=== PATIENT | female | born 1950 | race Caucasian/White ===

== ENCOUNTER 2017-10-28 17:27 | Inpatient (IN) ==
--- NOTE | 2017-10-28 18:06 | Emergency Department Note ---
Disposition Clinical Impression: Frequent falls Fracture of surgical neck of right humerus Qualifiers: Encounter type: initial encounter Fracture type: closed Fracture morphology: unspecified fracture morphology Fracture alignment: nondisplaced Qualified Code( s): S42.214A - Unspecified nondisplaced fracture of surgical neck of right humerus, initial encounter for closed fracture Left wrist fracture Qualifiers: Encounter type: initial encounter Fracture type: closed Qualified Code(s): S62.102A - Fracture of unspecified carpal bone, left wrist, initial encounter for closed fracture Disposition: Admitted As Inpatient Condition: Good Referrals: Gavin Mcdonald DO [Primary Care Provider] - Forms: ED Satisfaction Letter Time of Disposition: 19:59 Fall HPI - General Chief Complaint: ED Fall Stated Complaint: frequent falls Time Seen by Provider: 10/28/17 18:00 Source: patient, EMS Mode of arrival: EMS Limitations: physical limitation Nursing Notes Reviewed: Yes Vital Signs Reviewed: Yes - History of Present Illness HPI Narrative: 67-year-old white female who fell getting off the potty chair just prior to coming in. She was transported by squad. She has new pain in her right hip, right knee, right hand and forearm. She fell a week ago and fractured her right surgical neck of her humerus, and her left wrist. She has been followed up by orthopedics. She is not managing well at home with the fractures in both upper extremities. She is hallucinating with the pain medication according to the family. Onset (ago): Just ROVING OR [employer] Fall From: standing Fall Witnessed: yes Place Fall Occurred: home Loss of Consciousness: none Prolonged Down Time?: no Symptoms Prior to Fall: none Context: tripped/slipped Location of injury - extremities: Right: forearm, hand, hip, knee Severity: moderate (She states her hip does not hurt much anymore.) Quality: sharp Associated symptoms (after fall): Reports: denies - Related Data Home Medications Medication Instructions Recorded Confirmed Amitriptyline [Elavil] 20 mg PO HS 10/21/17 10/28/17 Amlodipine Besylate 10 mg PO DAILY 10/21/17 10/28/17 Aspirin [Lo-Dose Aspirin EC] 81 mg PO DAILY 10/21/17 10/28/17 Ergocalciferol (VITAMIN D2) 2,000 unit PO DAILY 10/21/17 10/28/17 [Vitamin D2] Furosemide [Lasix] 20 mg PO DAILY 10/21/17 10/28/17 Lisinopril [Zestril] 40 mg PO DAILY 10/21/17 10/28/17 Metformin HCl [Glucophage] 1,000 mg PO BID 10/21/17 10/28/17 Metoprolol XL (24 HR) Succ [Toprol 100 mg PO DAILY 10/21/17 10/28/17 XL] Pioglitazone HCl [Actos] 30 mg PO DAILY 10/21/17 10/28/17 Ranitidine HCl [Zantac] 150 mg PO BID 10/21/17 10/28/17 Sertraline [Zoloft] 100 mg PO DAILY 10/21/17 10/28/17 Tizanidine HCl [Zanaflex] 2 mg PO TID PRN 10/21/17 10/28/17 Tramadol HCl [Ultram] 50 mg PO Q8H 10/21/17 10/28/17 hydrOXYzine HCl [Hydroxyzine HCl] 25 mg PO TID PRN 10/21/17 10/28/17 Previous Rx's Medication Instructions Recorded HYDROcodone/Acet 5/325 mg [[place] 1 - 2 tab PO Q6H PRN #30 tab 10/21/17 5-325 mg] Allergies Allergy/AdvReac Type Severity Reaction Status Date / Time duloxetine [From Cymbalta] Allergy Agitated Verified 10/28/17 17:29 Paroxetine [From Paxil] Allergy Agitated Verified 10/28/17 17:29 acetaminophen [From Percocet] AdvReac Shakiness Verified 10/28/17 17:29 Oxycodone [From Percocet] AdvReac Shakiness Verified 10/28/17 17:29 All systems ED: reviewed and negative except as stated. Constitutional: Denies: fever, chills ENT ED: Denies: ear pain, throat pain Cardiovascular: Denies: chest pain Respiratory: Denies: cough, dyspnea Gastrointestinal: Denies: abdominal pain, nausea, vomiting Genitourinary: Denies: urgency, dysuria, frequency Musculoskeletal: Reports: other (Right shoulder fracture. Left wrist fracture. Right knee injury. Right forearm and hand injury. Right hip pain which is almost resolved at this point in time.). Denies: back pain, neck pain Integumentary: Reports: other (Bruising right upper arm) Neurological: Denies: weakness, numbness, paresthesias Fall PMH - Past Medical History Medical history: Reports: non-contributory, diabetes Surgical history: Reports: non-contributory Psychiatric history: Reports: anxiety, depression - Social History Smoking Status: Never smoker Alcohol use: Reports: none Drug use: Reports: none Physical Exam - General Limitations: no limitations General appearance: alert, in no apparent distress - Head Head exam: atraumatic, normocephalic - Eye Eye exam: Present: PERRL, EOMI. Absent: scleral icterus, conjunctival injection - ENT ENT exam: normal oropharynx, mucous membranes moist, TM's normal bilaterally - Neck Neck exam: Present: normal inspection, full ROM, trachea midline. Absent: tenderness, lymphadenopathy - Chest Chest inspection: Present: normal inspection, symmetric chest wall rise - Respiratory Respiratory exam: Present: normal lung sounds bilaterally. Absent: respiratory distress, wheezes - Cardiovascular Cardiovascular exam: Present: regular rate, normal rhythm, normal heart sounds - Abdominal Exam Abdominal exam: Present: soft, Non-Tender - Extremities Exam Extremities exam: Present: other (Moderate swelling and extensive brownish blue bruising of the right proximal and mid humerus. Limited range of motion of the right shoulder. She has some mild tenderness in her mid and distal right forearm. She has some mild tenderness in the area of her second and third metacarpals. She has range of motion of her right wrist and hand without deformity. She has some tenderness over her lateral right knee with intact range of motion. Her right hip is nontender without deformity. No significant pain with range of motion. She has some minimal brownish bruising to her left wrist with limited range of motion, no gross deformity. Intact distal pulses.) - Neurological Exam Neurological exam: Present: alert, oriented X3. Absent: motor sensory deficit - Psychiatric Psychiatric exam: Present: normal affect, normal mood - Skin Skin exam: Present: warm, dry, intact, normal color Course Vital Signs Temperature 99.0 F 10/28/17 17:33 Pulse Rate 118 10/28/17 17:33 Respiratory Rate 17 10/28/17 17:33 Blood Pressure 187/86 10/28/17 17:33 O2 Sat by Pulse Oximetry 96 10/28/17 17:33 Temperature 99.0 F 10/28/17 17:33 Pulse Rate 120 10/28/17 19:34 Respiratory Rate 18 10/28/17 19:34 Blood Pressure 171/81 10/28/17 19:34 O2 Sat by Pulse Oximetry 98 10/28/17 19:34 Oxygen Delivery Oxygen Delivery Room Air Fall - MDM Narrative Medical decision making narrative: The patient sustained or fractures about a week ago. She has bilateral upper extremity fractures. She is not managing well at home, and is falling and is at high risk for additional injury. She will need hospitalization and placement. The patient is requesting hospitalization and placement, she states she is unable to care for herself at home. I discussed the case with Dr. Keane. He is agreeable with admission for placement. I wrote for social service consult. - Lab Data Lab results reviewed: Yes I reviewed the patient's lab results. Result diagrams: 10/28/17 18:12 10/28/17 18:12 Lab Results 10/28/17 10/28/17 Range/Units 18:12 18:12 WBC 11.7 H (4.3-11.1) K/mcL RBC 3.72 L (3.82-4.97) M/mcL Hgb 10.5 L (11.5-15.4) g/dL Hct 31.0 L (35.3-44.9) % MCV 83.3 (83.0-100.0) fL MCH 28.2 (28.0-33.3) pg MCHC 33.9 (31.6-35.5) g/dL RDW 12.6 (11.5-14.5) % Plt Count 239 (140-400) K/mcL MPV 10.1 (9.4-12.4) fL Immature Gran % 0.4 (0-4) % Seg Neutrophils % 79.2 % Lymphocytes % 9.4 % Monocytes % 10.3 % Eosinophils % 0.5 % Basophils % 0.2 % Neutrophils # 9.3 H (1.6-8.9) K/mcL Lymphocytes # 1.1 (0.6-4.6) K/mcL Monocytes # 1.2 (0.0-1.3) K/mcL Eosinophils # 0.1 (0.0-0.6) K/mcL Basophils # 0.0 (0.0-0.2) K/mcL Sodium 138 (136-145) mEq/L Potassium 4.2 (3.5-4.5) mEq/L Chloride 101 (98-109) mEq/L Carbon Dioxide 25 (19-29) mEq/L BUN 25 H (7-20) mg/dL Creatinine 0.87 (0.57-1.11) mg/dL Est GFR ( Amer) > 60 (> 60) Est GFR (Non-Af Amer) > 60 (> 60) BUN/Creatinine Ratio 29 H (6-26) Glucose 212 H (70-99) mg/dL Calculated Osmolality 297 (280-300) Calcium 10.2 (8.6-10.8) mg/dL Total Bilirubin 1.0 (0.2-1.2) mg/dL AST 34 (5-34) Units/L ALT 28 (0-55) Units/L Alkaline Phosphatase 95 (38-126) Units/L Serum Total Protein 7.1 (6.0-8.3) g/dL Albumin 3.3 L (3.5-5.0) g/dL Globulin 3.8 H (2.4-3.5) g/dL Albumin/Globulin Ratio 0.9 L (1.1-2.2) - Radiology Data Radiology results reviewed: Yes I reviewed the patient's radiology results. Impressions Chest X-Ray 10/28/17 18:01 IMPRESSION: No evidence of acute cardiopulmonary disease. Fracture of the right humerus discussed on the shoulder radiographs performed today D/ / Waldo Menchaca MD / Waldo Menchaca MD Interpreting Provider: Waldo Menchaca MD Forearm X-Ray 10/28/17 18:01 IMPRESSION: Soft tissue swelling without fracture. D/ / Waldo Menchaca MD / Waldo Menchaca MD Interpreting Provider: Waldo Menchaca MD Hand X-Ray 10/28/17 18:01 IMPRESSION: No acute abnormality of the right hand D/ / Waldo Menchaca MD / Waldo Menchaca MD Interpreting Provider: Waldo Menchaca MD Hip X-Ray 10/28/17 18:01 IMPRESSION: No acute abnormality D/ / Waldo Menchaca MD / Waldo Menchaca MD Interpreting Provider: Waldo Menchaca MD Knee X-Ray 10/28/17 18:01 IMPRESSION: 1. No acute osseous abnormality. 2. Mild tricompartmental osteoarthritis. D/ / 10/28/2017 19:39:48 Jovany Crenshaw MD / [facility] Interpreting Provider: Jovany Crenshaw MD - EKG Data EKG attestation: Yes I reviewed and interpreted this EKG. EKG results narrative: Sinus tachycardia, rate of 114, age indeterminate). Infarct, nonspecific ST-T changes. Rhythm strip shows sinus tachycardia with rate 114, LA interval 169 ms , QRS 150 ms with no other ectopy is interpreted by me. No old EKG available for comparison.
[2017-10-28 18:17] LABS: Basophils % 0.2 %; Eosinophils # 0.1 K/mcL (0.0-0.6); Eosinophils % 0.5 %; Hemoglobin 10.5 g/dL (11.5-15.4); Immature Granulocytes % 0.4 % (0-4); Lymphocytes # 1.1 K/mcL (0.6-4.6); Lymphocytes % 9.4 %; Mean Corpuscular HGB Conc 33.9 g/dL (31.6-35.5); Mean Corpuscular Hemoglobin 28.2 pg (28.0-33.3); Mean Corpuscular Volume 83.3 fL (83.0-100.0); Mean Platelet Volume 10.1 fL (9.4-12.4); Monocytes # 1.2 K/mcL (0.0-1.3); Monocytes % 10.3 %; Neutrophils # 9.3 K/mcL (1.6-8.9); Platelet Count 239 K/mcL (140-400); Red Blood Count 3.72 M/mcL (3.82-4.97); Red Cell Distribution Width 12.6 % (11.5-14.5); Segmented Neutrophils % 79.2 %
[2017-10-28 18:34] LABS: Alanine Aminotransferase 28 Units/L (0-55); Albumin 3.3 g/dL (3.5-5.0); Albumin/Globulin Ratio 0.9 (1.1-2.2); Alkaline Phosphatase 95 Units/L (38-126); Aspartate Amino Transferase 34 Units/L (5-34); BUN/Creatinine Ratio 29 (6-26); Blood Urea Nitrogen 25 mg/dL (7-20); Calcium 10.2 mg/dL (8.6-10.8); Carbon Dioxide 25 mEq/L (19-29); Chloride 101 mEq/L (98-109); Globulin 3.8 g/dL (2.4-3.5); Glucose 212 mg/dL (70-99); Osmolality,Calculated 297 (280-300); Potassium 4.2 mEq/L (3.5-4.5); Sodium 138 mEq/L (136-145); Total Protein 7.1 g/dL (6.0-8.3); eGFR For African Americans > 60 (> 60); eGFR For Non-African Americans > 60 (> 60)
[2017-10-28] MEDS ORDERED: Naloxone 0.4 MG/ML INJ IVP PRN (21:25)
[2017-10-28] MEDS ORDERED: tiZANidine 4 MG TABLET PO PRN (21:25)
[2017-10-28] MEDS ORDERED: hydrALAZINE 25 MG TABLET PO PRN (21:25)
[2017-10-28] MEDS: *HR* Metformin 500 MG TABLET PO SCH (22:30)
[2017-10-28] MEDS: traMADol 50 MG TABLET PO SCH (22:37)
[2017-10-29] MEDS: traMADol 50 MG TABLET PO SCH ×3 (05:51→20:22)
[2017-10-29] MEDS ORDERED: Metoprolol XL (24 HR) Succ 50 MG TAB.ER.24H PO SCH (09:00)
[2017-10-29] MEDS: Cholecalciferol (D-3) 1,000 UNIT TABLET PO SCH (09:29)
[2017-10-29] MEDS: Furosemide 20 MG TABLET PO SCH (09:29)
[2017-10-29] MEDS: amLODIPine 5 MG TABLET PO SCH (09:29)
[2017-10-29] MEDS: *HR* Pioglitazone 15 MG TABLET PO SCH (09:30)
[2017-10-29] MEDS: Famotidine 20 MG TABLET PO SCH ×2 (09:30→16:13)
[2017-10-29] MEDS: Lisinopril 20 MG TABLET PO SCH (09:30)
[2017-10-29] MEDS: *HR* Metformin 500 MG TABLET PO SCH ×2 (09:30→16:13)
[2017-10-29] MEDS: Aspirin Enteric Coated 81 MG Tablet PO SCH (09:31)
[2017-10-29] MEDS: *HR* HYDROcodone/Acet 5/325 mg TABLET PO PRN (10:51)
--- NOTE | 2017-10-29 15:37 | Internal Med History&Physical ---
Date of Encounter: 10/29/17 Time of Encounter: 15:05 Assessment and Plan (1) Fracture of surgical neck of right humerus Current visit: Yes Status: Acute Anticipate surgical repair on 11/01/2017. Qualifiers: Encounter type: initial encounter Fracture type: closed Fracture morphology: unspecified fracture morphology Fracture alignment: nondisplaced Qualified Code(s): S42.214A - Unspecified nondisplaced fracture of surgical neck of right humerus, initial encounter for closed fracture (2) Left wrist fracture Current visit: Yes Status: Acute As per orthopedist. Qualifiers: Encounter type: initial encounter Fracture type: closed Qualified Code(s) : S62.102A - Fracture of unspecified carpal bone, left wrist, initial encounter for closed fracture (3) Anemia Current visit: Yes Status: Acute We will order anemia testing in a.m. Qualifiers: Anemia type: unspecified type Qualified Code(s): D64.9 - Anemia, unspecified (4) Azotemia Current visit: Yes Status: Acute Give IV fluids and recheck labs in a.m. (5) Hypertension Current visit: Yes Status: Chronic Will increase Toprol. Continue Zestril and amlodipine and monitor blood pressure. Qualifiers: Hypertension type: essential hypertension Qualified Code(s): I10 - Essential (primary) hypertension Internal Medicine - H&P: HPI Chief complaint: Fall Admitted From: Emergency Dept Plans for Post Hospital Care: Home History of present illness: Ms. Bahena is a 67 year old female who came to emergency room after she fell off the potty chair at home. She recalls the fall to the floor. Her heard the fall and called the squad. She was evaluated in emergency with x- rays showing no new fracture. She had previous right humerus surgical neck fracture and left wrist fracture from a fall approximately one week earlier. She was admitted to [facility] for ongoing care needs. She is scheduled for surgical repair of the humerus fracture on November 01 at [facility]. Her musk skeletal history significant for knee scope 1985. She has DJD and fibromyalgia but denies gout or other bone joint or muscle disorders. Past Med Surg Social Fam HX - Past Medical History Medical history: non-contributory, diabetes Psychiatric history: anxiety, depression - Past Surgical History Surgical History: non-contributory - Social History Smoking Status: Never smoker Smokeless Tobacco Status: No Alcohol use: none Drug use: none Internal Medicine - H&P: Meds Amitriptyline [Elavil] 20 mg PO HS 10/21/17 [History] Amlodipine Besylate 10 mg PO DAILY 10/21/17 [History] Aspirin [Lo-Dose Aspirin EC] 81 mg PO DAILY 10/21/17 [History] Ergocalciferol (VITAMIN D2) [Vitamin D2] 2,000 unit PO DAILY 10/21/17 [History] Furosemide [Lasix] 20 mg PO DAILY 10/21/17 [History] HYDROcodone/Acet 5/325 mg [[place] 5-325 mg] 1 - 2 tab PO Q6H PRN #30 tab [Rx] Lisinopril [Zestril] 40 mg PO DAILY 10/21/17 [History] Metformin HCl [Glucophage] 1,000 mg PO BID 10/21/17 [History] Metoprolol XL (24 HR) Succ [Toprol XL] 100 mg PO DAILY 10/21/17 [History] Pioglitazone HCl [Actos] 30 mg PO DAILY 10/21/17 [History] Ranitidine HCl [Zantac] 150 mg PO BID 10/21/17 [History] Sertraline [Zoloft] 100 mg PO DAILY 10/21/17 [History] Tizanidine HCl [Zanaflex] 2 mg PO TID PRN 10/21/17 [History] Tramadol HCl [Ultram] 50 mg PO Q8H 10/21/17 [History] hydrOXYzine HCl [Hydroxyzine HCl] 25 mg PO TID PRN 10/21/17 [History] 3 Allergy/AdvReac Type Severity Reaction Status Date / Time duloxetine [From Cymbalta] Allergy Agitated Verified 10/28/17 17:29 Paroxetine [From Paxil] Allergy Agitated Verified 10/28/17 17:29 acetaminophen [From Percocet] AdvReac Shakiness Verified 10/28/17 17:29 Oxycodone [From Percocet] AdvReac Shakiness Verified 10/28/17 17:29 All Systems PM: A 10-system review of systems was performed and is negative for pertinent findings except as documented above in the HPI. Review of systems: Gen.: She states her weight has decreased from approximately 285 pounds one year ago to present weight of approximately 225 pounds. This was unintentional. Cardiovascular: She has history of hypertension. She denies MS heart failure angina DVT or pulmonary embolus. She has had edema of her lower legs. Respiratory: She is lifelong nonsmoker and has no known chronic lung disease GI: She has GERD. She denies disorders of her liver gallbladder or exocrine pancreas : She has had UTIs in the past. She denies other kidney or bladder disorders. Neurologic: She is uncertain if she has had a stroke in the past. She states she feels "confused" for the last 2 weeks. She denies seizures Endocrine: She was diagnosed with DM 2 approximately 2004. She has hyperlipidemia but denies thyroid disease Hematology/oncology: She has anemia but denies blood disorders or cancers Psychiatric: She has anxiety and depression but denies other mental health issues [place] skeletal: As per history of present illness - Constitutional Vitals: Temp Pulse Resp BP Pulse Ox 98.4 F 96 18 143/72 95 10/29/17 15:00 10/29/17 15:00 10/29/17 15:00 10/29/17 15:00 10/29/17 15:00 Exam: Gen.: She is well-developed well-nourished female resting comfortably in bed who appears in no significant distress at present time HEENT: Head is atraumatic and normocephalic. Eyes: EOMI. There is no scleral icterus. Mouth: Mucosa is moist. Neck: Supple and nontender. There is no thyromegaly or adenopathy noted. Heart: Regular without murmurs gallops or ectopics Lungs: No wheezes or crackles heard. Abdomen: Soft and nontender. No masses or guarding are noted. Extremities: She has discoloration with ecchymosis dissecting along tissue planes in her right upper arm area. She has slight swelling of her left wrist compared to the right. There is ecchymosis around the left elbow area. There is no edema of her feet. Neurologic: Mental status: She is talkative and a good historian. Cranial nerves: Smile is symmetric. Forehead wrinkles bilaterally. Tongue protrudes midline. EOMI. Motor: There is no pronator drift. Cerebellar: Finger to nose is intact bilaterally. Skin: Warm and dry Internal Med - H&P Results - Labs CBC & Chem 7: 10/28/17 18:12 10/28/17 18:12
[2017-10-29] MEDS ORDERED: Metoprolol XL (24 HR) Succ 50 MG TAB.ER.24H PO ONE (16:00)
--- NOTE | 2017-10-29 16:40 | Electrocardiograph Report ---
[address] [place], [place] [address] Test Date: 2017-10-28 Pat Name: Huyen Bahena Department: 9201 Room: [facility] Gender: F Entry Examiner: [id number] : 1950 Requested By: Pernell Avina Order Number: [id number] Reading MD: Christoph Quiroz DO Measurements Intervals [place] Rate: 114 P: 67 TN: 169 QRS: 43 QRSD: 115 T: 41 QT: 387 QTc: 454 Interpretive Statements SINUS TACHYCARDIA POSSIBLE INFERIOR MYOCARDIAL INFARCTION, OF INDETERMINATE AGE Electronically Signed On 10-29-2017 16:39:18 EST by Christoph Quiroz DO
[2017-10-30] MEDS: traMADol 50 MG TABLET PO SCH ×3 (05:50→22:44)
[2017-10-30 06:04] LABS: Basophils % 0.3 %; Eosinophils # 0.2 K/mcL (0.0-0.6); Eosinophils % 2.2 %; Hematocrit 29.8 % (35.3-44.9); Hemoglobin 9.8 g/dL (11.5-15.4); Immature Granulocytes % 0.6 % (0-4); Lymphocytes # 1.8 K/mcL (0.6-4.6); Lymphocytes % 20.9 %; Mean Corpuscular HGB Conc 32.9 g/dL (31.6-35.5); Mean Corpuscular Hemoglobin 27.8 pg (28.0-33.3); Mean Corpuscular Volume 84.7 fL (83.0-100.0); Mean Platelet Volume 10.1 fL (9.4-12.4); Monocytes # 0.8 K/mcL (0.0-1.3); Monocytes % 8.7 %; Neutrophils # 5.8 K/mcL (1.6-8.9); Platelet Count 224 K/mcL (140-400); Red Blood Count 3.52 M/mcL (3.82-4.97); Red Cell Distribution Width 12.7 % (11.5-14.5); Segmented Neutrophils % 67.3 %
[2017-10-30 06:21] LABS: BUN/Creatinine Ratio 32 (6-26); Blood Urea Nitrogen 26 mg/dL (7-20); Calcium 9.2 mg/dL (8.6-10.8); Carbon Dioxide 25 mEq/L (19-29); Chloride 102 mEq/L (98-109); Glucose 161 mg/dL (70-99); Osmolality,Calculated 294 (280-300); Potassium 3.9 mEq/L (3.5-4.5); Sodium 138 mEq/L (136-145); eGFR For African Americans > 60 (> 60); eGFR For Non-African Americans > 60 (> 60)
[2017-10-30 06:45] LABS: Thyroid Stimulating Hormone 1.177 mcIU/mL (0.350-4.840)
[2017-10-30] MEDS: Lisinopril 20 MG TABLET PO SCH (08:33)
[2017-10-30] MEDS: *HR* Pioglitazone 15 MG TABLET PO SCH (08:33)
[2017-10-30] MEDS: Cholecalciferol (D-3) 1,000 UNIT TABLET PO SCH (08:33)
[2017-10-30] MEDS: Famotidine 20 MG TABLET PO SCH ×2 (08:33→17:43)
[2017-10-30] MEDS: Furosemide 20 MG TABLET PO SCH (08:34)
[2017-10-30] MEDS: Metoprolol XL (24 HR) Succ 50 MG TAB.ER.24H PO SCH (08:34)
[2017-10-30] MEDS: amLODIPine 5 MG TABLET PO SCH (08:34)
[2017-10-30] MEDS: *HR* Metformin 500 MG TABLET PO SCH ×2 (08:34→17:43)
[2017-10-30] MEDS: Aspirin Enteric Coated 81 MG Tablet PO SCH (08:34)
[2017-10-30 09:38] LABS: Hemoglobin A1C 6.1 %
--- NOTE | 2017-10-30 09:45 | Internal Med Progress Note ---
Date of Encounter: 10/30/17 Time of Encounter: 09:35 - Assessment and plan (1) Fracture of surgical neck of right humerus Current Visit: Yes Status: Acute Assessment and plan: October 30. Anticipate surgical repair 11/01/2017. Qualifiers: Encounter type: initial encounter Fracture type: closed Fracture morphology: unspecified fracture morphology Fracture alignment: nondisplaced Qualified Code(s): S42.214A - Unspecified nondisplaced fracture of surgical neck of right humerus, initial encounter for closed fracture (2) Left wrist fracture Current Visit: Yes Status: Acute Assessment and plan: October 30. As per orthopedist. Qualifiers: Encounter type: initial encounter Fracture type: closed Qualified Code(s) : S62.102A - Fracture of unspecified carpal bone, left wrist, initial encounter for closed fracture (3) Anemia Current Visit: Yes Status: Acute Assessment and plan: October 30. Anemia testing is pending. Qualifiers: Anemia type: unspecified type Qualified Code(s): D64.9 - Anemia, unspecified (4) Azotemia Current Visit: Yes Status: Acute Assessment and plan: October 30. Creatinine has decreased to 0.81. Barium peptide is normal. We will discontinue Lasix. We will decrease Norvasc to avoid edema. (5) Hypertension Current Visit: Yes Status: Chronic Assessment and plan: October 30. Continue higher dose Toprol. We will decrease amlodipine to lessen edema. Continue Zestril and monitor blood pressure. Qualifiers: Hypertension type: essential hypertension Qualified Code(s): I10 - Essential (primary) hypertension (6) Hypomagnesemia Current Visit: Yes Status: Acute Assessment and plan: October 30. Suspect secondary to diuretic use. Will order magnesium supplement. - Subjective Interval history: October 30. She has no new complaints. - Constitutional Vitals: Temp Pulse Resp BP Pulse Ox 98.5 F 92 18 152/72 95 10/30/17 05:06 10/30/17 05:06 10/30/17 05:06 10/30/17 05:06 10/30/17 05:06 Exam: She is resting comfortably in bed and appears in no acute distress. Her affect is bright and cheerful. Her extremities show decreased edema. I reviewed her medications and lab results. Internal Medicine: Result - Labs CBC & Chem 7: 10/30/17 05:04 10/30/17 05:04 Labs: Short CBC 10/30/17 Range/Units 05:04 WBC 8.6 (4.3-11.1) K/mcL Hgb 9.8 L (11.5-15.4) g/dL Hct 29.8 L (35.3-44.9) % Plt Count 224 (140-400) K/mcL Neutrophils # 5.8 (1.6-8.9) K/mcL BMP 10/30/17 05:04 Sodium 138 Potassium 3.9 Chloride 102 Carbon Dioxide 25 BUN 26 H Creatinine 0.81 Glucose 161 H Calcium 9.2 Consult Discharge Plan - Plan Referrals: Gavin Mcdonald DO [Primary Care Provider] - 1 week
[2017-10-30] MEDS ORDERED: amLODIPine 5 MG TABLET PO SCH (09:49)
[2017-10-30 10:07] LABS: Folate 8.3 ng/mL (3.0-16.0)
[2017-10-30] MEDS: *HR* Glimepiride 2 MG TABLET PO SCH (10:54)
[2017-10-30] MEDS: Magnesium Oxide 400 MG TABLET PO SCH ×2 (10:54→19:57)
[2017-10-30] MEDS: *HR* HYDROcodone/Acet 5/325 mg TABLET PO PRN ×2 (10:56→22:43)
[2017-10-30 11:53] LABS: % Iron Saturation 13 % (15-50); Ferritin 185 ng/ml (10-120); Iron 35 mcg/dL (50-170); Transferrin 189 mg/dL (203-362)
[2017-10-30 22:59] LABS: Bilirubin,Urine Negative (Negative); Blood,Urine Negative (Negative); Clarity,Urine Cloudy (Clear); Color,Urine Yellow (Yellow); Glucose,Urine (UA) Normal (Normal); Ketones,Urine Trace mg/dL (Negative); Leukocyte Esterase,Urine Moderate (Negative); Nitrite,Urine Negative (Negative); PH,Urine 5.5 pH Units (5.0-8.0); Protein,Urine Negative (Neg-Trace); Urobilinogen,Urine Normal (Normal)
[2017-10-30 23:14] LABS: Amorphous Sediment,Urine Few (Few); Bacteria,Urine Few per hpf (None-Few); Squamous Epithelial Cell,Urine Moderate per lpf (None-Few); WBC,Urine 15-30 per hpf (0-3)
[2017-10-31 05:37] LABS: Basophils % 0.5 %; Eosinophils # 0.3 K/mcL (0.0-0.6); Eosinophils % 3.7 %; Hematocrit 30.8 % (35.3-44.9); Hemoglobin 10.2 g/dL (11.5-15.4); Immature Granulocytes % 0.6 % (0-4); Lymphocytes # 2.5 K/mcL (0.6-4.6); Lymphocytes % 28.1 %; Mean Corpuscular HGB Conc 33.1 g/dL (31.6-35.5); Mean Corpuscular Hemoglobin 27.8 pg (28.0-33.3); Mean Corpuscular Volume 83.9 fL (83.0-100.0); Mean Platelet Volume 10.1 fL (9.4-12.4); Monocytes # 0.7 K/mcL (0.0-1.3); Monocytes % 7.7 %; Neutrophils # 5.3 K/mcL (1.6-8.9); Platelet Count 240 K/mcL (140-400); Red Blood Count 3.67 M/mcL (3.82-4.97); Red Cell Distribution Width 12.4 % (11.5-14.5); Segmented Neutrophils % 59.4 %
[2017-10-31 05:59] LABS: BUN/Creatinine Ratio 27 (6-26); Blood Urea Nitrogen 20 mg/dL (7-20); Calcium 9.3 mg/dL (8.6-10.8); Carbon Dioxide 25 mEq/L (19-29); Chloride 103 mEq/L (98-109); Glucose 106 mg/dL (70-99); Magnesium 1.3 mg/dL (1.6-2.6); Osmolality,Calculated 289 (280-300); Potassium 4.1 mEq/L (3.5-4.5); Sodium 138 mEq/L (136-145); eGFR For African Americans > 60 (> 60); eGFR For Non-African Americans > 60 (> 60)
[2017-10-31] MEDS: traMADol 50 MG TABLET PO SCH ×3 (06:26→21:39)
[2017-10-31] MEDS: Famotidine 20 MG TABLET PO SCH ×2 (08:19→16:31)
[2017-10-31] MEDS: Magnesium Oxide 400 MG TABLET PO SCH ×2 (08:20→20:13)
[2017-10-31] MEDS: *HR* Glimepiride 2 MG TABLET PO SCH (08:20)
[2017-10-31] MEDS: Aspirin Enteric Coated 81 MG Tablet PO SCH (08:20)
[2017-10-31] MEDS: *HR* Metformin 500 MG TABLET PO SCH ×2 (08:21→17:35)
[2017-10-31] MEDS: Metoprolol XL (24 HR) Succ 50 MG TAB.ER.24H PO SCH (08:21)
[2017-10-31] MEDS: Cholecalciferol (D-3) 1,000 UNIT TABLET PO SCH (08:22)
[2017-10-31] MEDS: Lisinopril 20 MG TABLET PO SCH (08:22)
--- NOTE | 2017-10-31 18:46 | Discharge Summary ---
Date of Encounter: 10/31/17 Time of Encounter: 18:15 - Discharge Diagnosis (1) Fracture of surgical neck of right humerus Priority: Primary Status: Acute Qualifiers: Encounter type: initial encounter Fracture type: closed Fracture morphology: unspecified fracture morphology Fracture alignment: nondisplaced Qualified Code(s): S42.214A - Unspecified nondisplaced fracture of surgical neck of right humerus, initial encounter for closed fracture (2) Left wrist fracture Priority: Secondary Status: Acute Qualifiers: Encounter type: initial encounter Fracture type: closed Qualified Code(s) : S62.102A - Fracture of unspecified carpal bone, left wrist, initial encounter for closed fracture (3) Anemia Priority: Secondary Status: Acute Qualifiers: Anemia type: unspecified type Qualified Code(s): D64.9 - Anemia, unspecified (4) Azotemia Priority: Secondary Status: Resolved (5) Hypertension Priority: Secondary Status: Chronic Qualifiers: Hypertension type: essential hypertension Qualified Code(s): I10 - Essential (primary) hypertension (6) Hypomagnesemia Priority: Secondary Status: Acute - Discharge Medications Prescriptions: Metoprolol Succinate 200 mg PO DAILY 30 Days tab.er.24h Home Medications: Amitriptyline [Elavil] 20 mg PO HS 10/21/17 [History] Aspirin [Lo-Dose Aspirin EC] 81 mg PO DAILY 10/21/17 [History] Ergocalciferol (VITAMIN D2) [Vitamin D2] 2,000 unit PO DAILY 10/21/17 [History] Furosemide [Lasix] 20 mg PO DAILY 10/21/17 [History] HYDROcodone/Acet 5/325 mg [[place] 5-325 mg] 1 - 2 tab PO Q6H PRN #30 tab [Rx] Lisinopril [Zestril] 40 mg PO DAILY 10/21/17 [History] Metformin HCl [Glucophage] 1,000 mg PO BID 10/21/17 [History] Ranitidine HCl [Zantac] 150 mg PO BID 10/21/17 [History] Sertraline [Zoloft] 100 mg PO DAILY 10/21/17 [History] Tizanidine HCl [Zanaflex] 2 mg PO TID PRN 10/21/17 [History] Tramadol HCl [Ultram] 50 mg PO Q8H 10/21/17 [History] hydrOXYzine HCl [Hydroxyzine HCl] 25 mg PO TID PRN 10/21/17 [History] Glimepiride [Amaryl] 1 mg PO 0800 tablet 10/31/17 [Rx] Magnesium Oxide [Mag-Ox] 400 mg PO BID tablet 10/31/17 [Rx] Metoprolol Succinate 200 mg PO DAILY 30 Days tab.er.24h 10/31/17 [Rx] amLODIPine [Norvasc] 5 mg PO DAILY tablet 10/31/17 [Rx] Allergies/Adverse Reactions: 3 Allergy/AdvReac Type Severity Reaction Status Date / Time duloxetine [From Cymbalta] Allergy Agitated Verified 10/28/17 17:29 Paroxetine [From Paxil] Allergy Agitated Verified 10/28/17 17:29 acetaminophen [From Percocet] AdvReac Shakiness Verified 10/28/17 17:29 Oxycodone [From Percocet] AdvReac Shakiness Verified 10/28/17 17:29 Date of admission: 10/28/17 20:08 Primary care physician: Gavin Mcdonald, DO - Patient Status Disposition: Transfer Other Condition: Good - Discharge Instructions - Diet and Activity Diet: diabetic diet Hospital course: Ms. Bahena is a 67 year old female who came to emergency room after she fell off the potty chair at home. She recalls the fall to the floor. Her heard the fall and called the squad. She was evaluated in emergency with x- rays showing no new fracture. She had previous right humerus surgical neck fracture and left wrist fracture from a fall approximately one week earlier. She was admitted to [facility] for ongoing care needs. Initial orders were written by the emergency room physician. I saw her on October 29 and performed the history and physical. She was given analgesics and IV fluids. Additional lab work showed anemia testing with iron 35, transferrin saturation 13%, transferrin 189, ferritin 185, B12 554, and folate 8.3. She will be started on ferrous sulfate with vitamin C upon her return to [facility] in swing bed following surgery. Hemoglobin A1c returned satisfactory at 6.1%. Actos was discontinued to avoid worsening edema. She was continued on metformin and given glimepiride 1 mg daily. Amlodipine dose was decreased to 5 mg daily and metoprolol XL increased to 200 mg daily which lessened edema and improved blood pressure and heart rate control. Magnesium level returned low at 1.3. She was started on magnesium oxide and this will be continued after discharge. She will be transported to [facility] the morning of November 01 for surgical repair of the right proximal humerus fracture and left wrist fracture. Upon discharge she will return to [facility] for swing bed stay. - Time Spent with Patient Total time spent providing and/or coordinating discharge services: - Constitutional Vitals: Temp Pulse Resp BP Pulse Ox 98.8 F 84 16 144/73 96 10/31/17 16:15 10/31/17 16:15 10/31/17 16:15 10/31/17 16:15 10/31/17 16:15
[2017-10-31] MEDS: *HR* HYDROcodone/Acet 5/325 mg TABLET PO PRN (20:13)
[2017-11-01] MEDS: traMADol 50 MG TABLET PO SCH (05:39)
[2017-11-01 07:20] VITALS: BP 157/70
== END 2017-11-01 07:45 | disposition short-term general hospital (02) | DRG 563 ==
LOC: EMEROOPIK 17:27 → INPPIK 17:27
PROVIDERS: ADMIT Internal Medicine; ATTEND Internal Medicine

== ENCOUNTER 2017-11-01 14:41 | Inpatient (IN) ==
[2017-11-01] MEDS ORDERED: tiZANidine 4 MG TABLET PO PRN (16:27)
[2017-11-01] MEDS ORDERED: *HR* HYDROcodone/Acet 5/325 mg TABLET PO PRN (17:04)
[2017-11-01] MEDS ORDERED: Famotidine 20 MG TABLET PO SCH (21:00)
[2017-11-01] MEDS: Famotidine 20 MG TABLET PO SCH (22:44)
[2017-11-01] MEDS: Magnesium Oxide 400 MG TABLET PO SCH (22:44)
[2017-11-01] MEDS: *HR* Metformin 500 MG TABLET PO SCH (22:46)
[2017-11-02] MEDS ORDERED: *HR* Pioglitazone 15 MG TABLET PO SCH (08:00)
[2017-11-02] MEDS ORDERED: Aspirin Enteric Coated 81 MG Tablet PO SCH (09:00)
[2017-11-02] MEDS: amLODIPine 5 MG TABLET PO SCH (09:05)
[2017-11-02] MEDS: *HR* Metformin 500 MG TABLET PO SCH ×2 (09:05→18:09)
[2017-11-02] MEDS: Lisinopril 20 MG TABLET PO SCH (09:06)
[2017-11-02] MEDS: Magnesium Oxide 400 MG TABLET PO SCH ×2 (09:06→20:19)
[2017-11-02] MEDS: Famotidine 20 MG TABLET PO SCH ×2 (09:06→20:19)
[2017-11-02] MEDS: Furosemide 20 MG TABLET PO SCH (09:07)
[2017-11-02] MEDS: *HR* Glimepiride 2 MG TABLET PO SCH (09:07)
[2017-11-02] MEDS: Metoprolol XL (24 HR) Succ 50 MG TAB.ER.24H PO SCH (10:59)
[2017-11-02] MEDS: *HR* HYDROcodone/Acet 5/325 mg TABLET PO PRN ×2 (14:38→20:19)
--- NOTE | 2017-11-02 17:21 | Internal Med History&Physical ---
Date of Encounter: 11/02/17 Time of Encounter: 16:50 Assessment and Plan (1) Left wrist fracture Current visit: No Status: Acute As per orthopedists Qualifiers: Encounter type: initial encounter Fracture type: closed Qualified Code(s) : S62.102A - Fracture of unspecified carpal bone, left wrist, initial encounter for closed fracture (2) Fracture of surgical neck of right humerus Current visit: No Status: Acute As per orthopedist Qualifiers: Encounter type: initial encounter Fracture type: closed Fracture morphology: unspecified fracture morphology Fracture alignment: nondisplaced Qualified Code(s): S42.214A - Unspecified nondisplaced fracture of surgical neck of right humerus, initial encounter for closed fracture (3) Anemia Current visit: No Status: Acute Will start ferrous sulfate with vitamin C based on anemia testing 10/30/2017. Qualifiers: Anemia type: unspecified type Qualified Code(s): D64.9 - Anemia, unspecified (4) Hypertension Current visit: No Status: Chronic Continue Toprol, lisinopril, and Norvasc. Qualifiers: Hypertension type: essential hypertension Qualified Code(s): I10 - Essential (primary) hypertension (5) Hypomagnesemia Current visit: No Status: Acute Will give magnesium oxide and monitor labs. Internal Medicine - H&P: HPI Chief complaint: Postop wrist fracture repair Admitted From: Hospital to Hospital Transfer Plans for Post Hospital Care: Home History of present illness: Ms. Bahena is a 67 year old female who was discharged from [facility] acute-care to same day surgery at [facility] for left wrist fracture repair 11/01/2017. She had distal radius intra-articular fracture with 3 distal fragments repaired by ORIF plate and screw repair by Dr. Sepulveda. She returned to [facility] for swing bed admission for ongoing care needs. She did not have intervention for a right humerus surgical neck fracture since a right reverse total shoulder replacement surgery is planned for 11/06/2017. She had sustained the fractures from a fall at home approximately one week prior to her last admission. Her musk skeletal history is significant for a knee scope in 1985. She has DJD and fibromyalgia but denies gout or other bone joint or muscle disorders. Past Med Surg Social Fam HX - Past Medical History Medical history: non-contributory, diabetes Psychiatric history: anxiety, depression - Past Surgical History Surgical History: non-contributory - Social History Smoking Status: Never smoker Smokeless Tobacco Status: No Alcohol use: none Drug use: none Internal Medicine - H&P: Meds Amitriptyline [Elavil] 20 mg PO HS 10/21/17 [History] Aspirin [Lo-Dose Aspirin EC] 81 mg PO DAILY 10/21/17 [History] Ergocalciferol (VITAMIN D2) [Vitamin D2] 2,000 unit PO DAILY 10/21/17 [History] Furosemide [Lasix] 20 mg PO DAILY 10/21/17 [History] HYDROcodone/Acet 5/325 mg [[place] 5-325 mg] 1 - 2 tab PO Q6H PRN #30 tab [Rx] Lisinopril [Zestril] 40 mg PO DAILY 10/21/17 [History] Metformin HCl [Glucophage] 1,000 mg PO BID 10/21/17 [History] Ranitidine HCl [Zantac] 150 mg PO BID 10/21/17 [History] Sertraline [Zoloft] 100 mg PO DAILY 10/21/17 [History] Tizanidine HCl [Zanaflex] 2 mg PO TID PRN 10/21/17 [History] Tramadol HCl [Ultram] 50 mg PO Q8H 10/21/17 [History] Glimepiride [Amaryl] 1 mg PO 0800 tablet 10/31/17 [Rx] Magnesium Oxide [Mag-Ox] 400 mg PO BID tablet 10/31/17 [Rx] Metoprolol Succinate 200 mg PO DAILY 30 Days tab.er.24h 10/31/17 [Rx] Amlodipine Besylate [Amlodipine Besylate] 10 mg PO DAILY 11/01/17 [History] Atorvastatin [Lipitor] 10 mg PO HS 11/01/17 [History] HYDROcodone/Acet 7.5/325 mg [[place] 7.5-325 mg] 1 tab PO Q4H PRN #42 tablet 11/01 [Rx] 3 Allergy/AdvReac Type Severity Reaction Status Date / Time duloxetine [From Cymbalta] Allergy Agitated Verified 10/28/17 17:29 Paroxetine [From Paxil] Allergy Agitated Verified 10/28/17 17:29 acetaminophen [From Percocet] AdvReac Shakiness Verified 10/28/17 17:29 Oxycodone [From Percocet] AdvReac E[place]se Verified 10/28/17 17:29 All Systems PM: A 10-system review of systems was performed and is negative for pertinent findings except as documented above in the HPI. Review of systems: Review of systems from her recent acute-care H stay were reviewed and revised as below. Gen.: She states her weight has decreased from approximately 285 pounds one year ago to present weight of approximately 225 pounds. This was unintentional. Cardiovascular: She has history of hypertension. She denies MS heart failure angina DVT or pulmonary embolus. She has had edema of her lower legs. Respiratory: She is lifelong nonsmoker and has no known chronic lung disease GI: She has GERD. She denies disorders of her liver gallbladder or exocrine pancreas : She has had UTIs in the past. She denies other kidney or bladder disorders. Neurologic: She is uncertain if she has had a stroke in the past. She denies seizures Endocrine: She was diagnosed with DM 2 approximately 2004. Hemoglobin A1c returned satisfactory 6.1% earlier this week. Actos was discontinued to avoid worsening edema. She was continued on metformin and given glimepiride 1 mg daily. She has hyperlipidemia but denies thyroid disease Hematology/oncology: She has anemia but denies blood disorders or cancers. Anemia testing during her acute care stay earlier this week showed iron 35, transferrin saturation 13%, transferrin 189, ferritin 185, B12 554, and folate 8.3. Psychiatric: She has anxiety and depression but denies other mental health issues Musk skeletal: As per history of present illness - Constitutional Vitals: Temp Pulse Resp BP Pulse Ox 98.6 F 83 16 172/60 95 11/02/17 07:31 11/02/17 07:31 11/02/17 07:31 11/02/17 07:31 11/02/17 07:31 Exam: Gen.: She is a well-developed well-nourished female resting in bed who appears in no acute distress HEENT: Head is atraumaticic and normocephalic. Eyes: EOMI. There is no scleral icterus. Mouth: Mucosa is moist. Neck: There is no thyromegaly or adenopathy noted. Heart: Regular without murmurs gallops or ectopics. Lungs: No wheezes or crackles are heard. Abdomen: Soft and nontender. No masses or guarding are noted. Extremities: There is no edema of her lower legs. Dorsalis pedis and posterior tibial pulses are trace to 1+ palpable bilaterally. The left arm is in immobilizer sling with elastic wrap extending from her mid upper arm distally. Her hand is wrapped in gauze leaving only the fingers exposed. Her right arm is in a rigid immobilizer. Neurologic: Mental status: She is talkative and a good historian. Cranial nerves: Smile is symmetric. Forehead wrinkles bilaterally. Tongue protrudes midline. EOMI. Motor: There is no pronator drift. Cerebellar: Finger to nose is not attempted. Skin: Warm and dry
[2017-11-02] MEDS: Aspirin Enteric Coated 81 MG Tablet PO SCH (18:09)
[2017-11-02] MEDS: traMADol 50 MG TABLET PO SCH (18:12)
[2017-11-03] MEDS: traMADol 50 MG TABLET PO SCH ×3 (00:13→22:33)
[2017-11-03] MEDS: *HR* Metformin 500 MG TABLET PO SCH ×2 (10:32→16:55)
[2017-11-03] MEDS: Lisinopril 20 MG TABLET PO SCH (10:33)
[2017-11-03] MEDS: amLODIPine 5 MG TABLET PO SCH (10:33)
[2017-11-03] MEDS: Furosemide 20 MG TABLET PO SCH (10:33)
[2017-11-03] MEDS: Metoprolol XL (24 HR) Succ 50 MG TAB.ER.24H PO SCH (10:33)
[2017-11-03] MEDS: Famotidine 20 MG TABLET PO SCH ×2 (10:34→22:33)
[2017-11-03] MEDS: Magnesium Oxide 400 MG TABLET PO SCH ×2 (10:34→22:33)
[2017-11-03] MEDS: *HR* Glimepiride 2 MG TABLET PO SCH (10:34)
--- NOTE | 2017-11-03 12:19 | Internal Med Progress Note ---
Date of Encounter: 11/03/17 Time of Encounter: 12:10 - Assessment and plan (1) Left wrist fracture Current Visit: No Status: Acute Assessment and plan: November 03. Status post ORIF 11/01/2017. As per orthopedist Qualifiers: Encounter type: initial encounter Fracture type: closed Qualified Code(s) : S62.102A - Fracture of unspecified carpal bone, left wrist, initial encounter for closed fracture (2) Fracture of surgical neck of right humerus Current Visit: No Status: Acute Assessment and plan: November 03. Awaiting surgical repair 11/07/2017. Qualifiers: Encounter type: initial encounter Fracture type: closed Fracture morphology: unspecified fracture morphology Fracture alignment: nondisplaced Qualified Code(s): S42.214A - Unspecified nondisplaced fracture of surgical neck of right humerus, initial encounter for closed fracture (3) Anemia Current Visit: No Status: Acute Assessment and plan: November 07. Continue ferrous sulfate and vitamin C. Check labs in a.m. Qualifiers: Anemia type: unspecified type Qualified Code(s): D64.9 - Anemia, unspecified (4) Hypertension Current Visit: No Status: Chronic Assessment and plan: November 03. Continue Toprol, lisinopril, and Norvasc Qualifiers: Hypertension type: essential hypertension Qualified Code(s): I10 - Essential (primary) hypertension (5) Hypomagnesemia Current Visit: No Status: Acute Assessment and plan: November 03. Continue magnesium oxide. Check labs in a.m. - Subjective Interval history: November 03. She has no new complaints. She has pain in her right arm. - Constitutional Vitals: Temp Pulse Resp BP Pulse Ox 97.8 F 85 16 191/71 96 11/03/17 07:32 11/03/17 07:32 11/03/17 07:32 11/03/17 07:32 11/03/17 07:32 Exam: She is resting comfortably in the bed. Her is feeding her lunch. Extremities show no pitting edema. I reviewed her medications and lab results. Consult Discharge Plan - Plan Referrals: Gavin Mcdonald DO [Primary Care Provider] - 1 week
[2017-11-03] MEDS: *HR* HYDROcodone/Acet 5/325 mg TABLET PO PRN ×2 (12:54→16:55)
[2017-11-03 16:25] LABS: Basophils % 0.3 %; Eosinophils # 0.1 K/mcL (0.0-0.6); Hematocrit 31.3 % (35.3-44.9); Hemoglobin 10.6 g/dL (11.5-15.4); Immature Granulocytes % 0.9 % (0-4); Lymphocytes # 2.9 K/mcL (0.6-4.6); Lymphocytes % 21.7 %; Mean Corpuscular HGB Conc 33.9 g/dL (31.6-35.5); Mean Corpuscular Volume 82.6 fL (83.0-100.0); Mean Platelet Volume 10.2 fL (9.4-12.4); Monocytes # 0.9 K/mcL (0.0-1.3); Monocytes % 6.4 %; Platelet Count 304 K/mcL (140-400); Red Blood Count 3.79 M/mcL (3.82-4.97); Red Cell Distribution Width 12.8 % (11.5-14.5); Segmented Neutrophils % 69.7 %
[2017-11-03 16:34] LABS: Neutrophils # 9.3 K/mcL (1.6-8.9)
[2017-11-03 16:42] LABS: BUN/Creatinine Ratio 29 (6-26); Blood Urea Nitrogen 28 mg/dL (7-20); Calcium 9.5 mg/dL (8.6-10.8); Carbon Dioxide 22 mEq/L (19-29); Chloride 105 mEq/L (98-109); Glucose 112 mg/dL (70-99); Magnesium 1.5 mg/dL (1.6-2.6); Osmolality,Calculated 294 (280-300); Potassium 4.8 mEq/L (3.5-4.5); Sodium 139 mEq/L (136-145); eGFR For African Americans > 60 (> 60); eGFR For Non-African Americans 58 (> 60)
[2017-11-03 17:50] LABS: Platelet Estimate Normal (Normal)
[2017-11-04] MEDS: Ascorbic Acid 500 MG TABLET PO SCH (06:38)
[2017-11-04] MEDS: *HR* HYDROcodone/Acet 5/325 mg TABLET PO PRN ×4 (06:39→21:35)
[2017-11-04] MEDS: Metoprolol XL (24 HR) Succ 50 MG TAB.ER.24H PO SCH (08:13)
[2017-11-04] MEDS: Lisinopril 20 MG TABLET PO SCH (08:13)
[2017-11-04] MEDS: Famotidine 20 MG TABLET PO SCH ×2 (08:13→21:34)
[2017-11-04] MEDS: *HR* Metformin 500 MG TABLET PO SCH ×2 (08:13→17:07)
[2017-11-04] MEDS: Magnesium Oxide 400 MG TABLET PO SCH ×2 (08:14→21:34)
[2017-11-04] MEDS: *HR* Glimepiride 2 MG TABLET PO SCH (08:14)
[2017-11-04] MEDS: Furosemide 20 MG TABLET PO SCH (08:14)
[2017-11-04] MEDS: traMADol 50 MG TABLET PO SCH ×2 (08:14→17:06)
[2017-11-04] MEDS: amLODIPine 5 MG TABLET PO SCH (08:14)
[2017-11-04] MEDS ORDERED: Cholecalciferol (D-3) 1,000 UNIT TABLET PO SCH ×2 (09:00→10:45)
[2017-11-04] MEDS ORDERED: Mag Hydrox/Al Hydrox/Simeth 30 ML UDC PO ONE (10:12)
[2017-11-04] MEDS: Cholecalciferol (D-3) 1,000 UNIT TABLET PO SCH (17:06)
[2017-11-04] MEDS: Aspirin Enteric Coated 81 MG Tablet PO SCH (17:07)
[2017-11-05] MEDS: traMADol 50 MG TABLET PO SCH ×5 (00:30→23:41)
[2017-11-05] MEDS: *HR* HYDROcodone/Acet 5/325 mg TABLET PO PRN ×3 (07:00→22:22)
[2017-11-05] MEDS: Ascorbic Acid 500 MG TABLET PO SCH ×2 (07:00→09:22)
[2017-11-05] MEDS: Cholecalciferol (D-3) 1,000 UNIT TABLET PO SCH (09:18)
[2017-11-05] MEDS: *HR* Glimepiride 2 MG TABLET PO SCH (09:18)
[2017-11-05] MEDS: Lisinopril 20 MG TABLET PO SCH (09:20)
[2017-11-05] MEDS: Famotidine 20 MG TABLET PO SCH ×2 (09:20→21:21)
[2017-11-05] MEDS: Furosemide 20 MG TABLET PO SCH (09:20)
[2017-11-05] MEDS: *HR* Metformin 500 MG TABLET PO SCH ×2 (09:20→17:00)
[2017-11-05] MEDS: Magnesium Oxide 400 MG TABLET PO SCH ×2 (09:21→21:20)
[2017-11-05] MEDS: Metoprolol XL (24 HR) Succ 50 MG TAB.ER.24H PO SCH (09:21)
[2017-11-05] MEDS: amLODIPine 5 MG TABLET PO SCH (09:27)
--- NOTE | 2017-11-05 15:48 | Internal Med Progress Note ---
Date of Encounter: 11/05/17 Time of Encounter: 15:40 - Assessment and plan (1) Left wrist fracture Current Visit: No Status: Acute Assessment and plan: November 03. Status post ORIF 11/01/2017. As per orthopedist Qualifiers: Encounter type: initial encounter Fracture type: closed Qualified Code(s) : S62.102A - Fracture of unspecified carpal bone, left wrist, initial encounter for closed fracture (2) Fracture of surgical neck of right humerus Current Visit: No Status: Acute Assessment and plan: November 03. Awaiting surgical repair 11/07/2017. November 05. She is scheduled for rTSR tomorrow. Qualifiers: Encounter type: initial encounter Fracture type: closed Fracture morphology: unspecified fracture morphology Fracture alignment: nondisplaced Qualified Code(s): S42.214A - Unspecified nondisplaced fracture of surgical neck of right humerus, initial encounter for closed fracture (3) Anemia Current Visit: No Status: Acute Assessment and plan: November 03. Continue ferrous sulfate and vitamin C. Check labs in a.m. November 05. Hemoglobin improved to 10.6. Continue ferrous sulfate with vitamin C. Qualifiers: Anemia type: unspecified type Qualified Code(s): D64.9 - Anemia, unspecified (4) Hypertension Current Visit: No Status: Chronic Assessment and plan: November 03. Continue Toprol, lisinopril, and Norvasc Qualifiers: Hypertension type: essential hypertension Qualified Code(s): I10 - Essential (primary) hypertension (5) Hypomagnesemia Current Visit: No Status: Acute Assessment and plan: November 03. Continue magnesium oxide. Check labs in a.m. November 05. Magnesium level improved to 1.5. Continue magnesium oxide and monitor labs. - Subjective Interval history: November 03. She has no new complaints. She has pain in her right arm. November 05. She has no new complaints. She is scheduled for shoulder surgery tomorrow. - Constitutional Vitals: Temp Pulse Resp BP Pulse Ox 98.2 F 79 18 149/77 96 11/05/17 07:00 11/05/17 07:00 11/05/17 07:00 11/05/17 07:00 11/05/17 07:00 Exam: She is resting comfortably in bed and appears in no acute distress. Fingers on her left hand are swollen. Her right arm remains in the immobilizer device. Extremities show no pitting edema. I reviewed her medications and lab results. Internal Medicine: Result - Labs CBC & Chem 7: 11/03/17 16:15 11/03/17 16:15 Consult Discharge Plan - Plan Referrals: Gavin Mcdonald DO [Primary Care Provider] - 1 week
[2017-11-06] MEDS: Ascorbic Acid 500 MG TABLET PO SCH (05:54)
[2017-11-06] MEDS: Famotidine 20 MG TABLET PO SCH (06:41)
[2017-11-06 07:25] VITALS: BP 148/76
[2017-11-06] MEDS: *HR* Metformin 500 MG TABLET PO SCH (07:56)
[2017-11-06] MEDS: *HR* Glimepiride 2 MG TABLET PO SCH (07:56)
[2017-11-06] MEDS: traMADol 50 MG TABLET PO SCH (07:58)
[2017-11-06] MEDS: Lisinopril 20 MG TABLET PO SCH (08:46)
[2017-11-06] MEDS: Metoprolol XL (24 HR) Succ 50 MG TAB.ER.24H PO SCH (08:46)
[2017-11-06] MEDS: amLODIPine 5 MG TABLET PO SCH (08:47)
[2017-11-06] MEDS: Cholecalciferol (D-3) 1,000 UNIT TABLET PO SCH (08:47)
[2017-11-06] MEDS: Magnesium Oxide 400 MG TABLET PO SCH (08:47)
[2017-11-06] MEDS: Furosemide 20 MG TABLET PO SCH (08:47)
--- NOTE | 2017-11-06 10:59 | Discharge Summary ---
Date of Encounter: 11/06/17 Time of Encounter: 10:50 - Discharge Diagnosis (1) Left wrist fracture Priority: Primary Status: Acute Qualifiers: Encounter type: initial encounter Fracture type: closed Qualified Code(s) : S62.102A - Fracture of unspecified carpal bone, left wrist, initial encounter for closed fracture (2) Fracture of surgical neck of right humerus Priority: Secondary Status: Acute Qualifiers: Encounter type: initial encounter Fracture type: closed Fracture morphology: unspecified fracture morphology Fracture alignment: displaced Qualified Code(s): S42.211A - Unspecified displaced fracture of surgical neck of right humerus, initial encounter for closed fracture (3) Anemia Priority: Secondary Status: Acute Qualifiers: Anemia type: unspecified type Qualified Code(s): D64.9 - Anemia, unspecified (4) Hypertension Priority: Secondary Status: Chronic Qualifiers: Hypertension type: essential hypertension Qualified Code(s): I10 - Essential (primary) hypertension (5) Hypomagnesemia Priority: Secondary Status: Acute - Discharge Medications Home Medications: Amitriptyline [Elavil] 20 mg PO HS 10/21/17 [History] Aspirin [Lo-Dose Aspirin EC] 81 mg PO DAILY 10/21/17 [History] Ergocalciferol (VITAMIN D2) [Vitamin D2] 2,000 unit PO DAILY 10/21/17 [History] Furosemide [Lasix] 20 mg PO DAILY 10/21/17 [History] HYDROcodone/Acet 5/325 mg [[place] 5-325 mg] 1 - 2 tab PO Q6H PRN #30 tab [Rx] Lisinopril [Zestril] 40 mg PO DAILY 10/21/17 [History] Metformin HCl [Glucophage] 1,000 mg PO BID 10/21/17 [History] Ranitidine HCl [Zantac] 150 mg PO BID 10/21/17 [History] Sertraline [Zoloft] 100 mg PO DAILY 10/21/17 [History] Tizanidine HCl [Zanaflex] 2 mg PO TID PRN 10/21/17 [History] Tramadol HCl [Ultram] 50 mg PO Q8H 10/21/17 [History] Glimepiride [Amaryl] 1 mg PO 0800 tablet 10/31/17 [Rx] Magnesium Oxide [Mag-Ox] 400 mg PO BID tablet 10/31/17 [Rx] Metoprolol Succinate 200 mg PO DAILY 30 Days tab.er.24h 10/31/17 [Rx] Amlodipine Besylate [Amlodipine Besylate] 10 mg PO DAILY 11/01/17 [History] Atorvastatin [Lipitor] 10 mg PO HS 11/01/17 [History] HYDROcodone/Acet 7.5/325 mg [[place] 7.5-325 mg] 1 tab PO Q4H PRN #42 tablet 11/01 [Rx] Allergies/Adverse Reactions: 3 Allergy/AdvReac Type Severity Reaction Status Date / Time duloxetine [From Cymbalta] Allergy Agitated Verified 10/28/17 17:29 Paroxetine [From Paxil] Allergy Agitated Verified 10/28/17 17:29 acetaminophen [From Percocet] AdvReac Shakiness Verified 10/28/17 17:29 Oxycodone [From Percocet] AdvReac Shakiness Verified 10/28/17 17:29 Date of admission: 11/01/17 16:47 Primary care physician: Gavin Mcdonald DO Consults: 11/01/17 17:59 Consult to Occupational Therapy [CONS] Routine Comment: Evaluate, develop and implement POC Reason for Consult: Evaluate, develop and implement POC Consult to Physical Therapy [CONS] Routine Comment: Evaluate, develop and implement POC Reason for Consult: Evaluate, develop and implement POC 11/01/17 18:30 Consult to Before And After School Daycare Worker [CONS] Routine Reason for SW Consult: D/C planning - Patient Status Disposition: Transfer Other - Discharge Instructions Hospital course: Ms. Bahena is a 67 year old female who was discharged from [facility] acute-care to same day surgery at [facility] for left wrist fracture repair 11/01/2017. She had distal radius intra-articular fracture with 3 distal fragments repaired by ORIF plate and screw repair by Dr. Sepulveda. She returned to [facility] for swing bed admission for ongoing care needs. She did not have intervention for a right humerus surgical neck fracture since a right reverse total shoulder replacement surgery is planned for 11/06/2017. Initial orders were written by the discharging physicians at [facility]. I saw her on November 02 and performed the swing bed history and physical. She had physical therapy and occupational therapy interventions. There were no new problems. She will be discharged to [facility] today to have right shoulder surgery. She will return to [facility] tomorrow for readmission to swing bed. - Time Spent with Patient Total time spent providing and/or coordinating discharge services: - Constitutional Vitals: Temp Pulse Resp BP Pulse Ox 98.2 F 81 17 148/76 97 11/06/17 07:22 11/06/17 07:22 11/06/17 07:22 11/06/17 07:22 11/06/17 07:22
--- NOTE | 2017-11-06 14:30 | Anesthesia Evaluation PreOp ---
Date of Encounter: 11/06/17 Time of Encounter: 14:26 - Past History Planned Operation: RVSR reverse Cardiac History: HTN, Hyperlipidemia Pulmonary History: Denies Any Significant HX CLINICAL SYSTEMS ANALYST History: Other (lumbar stenosis L4/5 and L5/S1) Other Medical History: Diabetes Type II, GERD Anesthesia History: No Prior Anesthetic Complications Alcohol Use: none Drug use: none Medications and Allergies Amitriptyline [Elavil] 20 mg PO HS 10/21/17 [History] Aspirin [Lo-Dose Aspirin EC] 81 mg PO DAILY 10/21/17 [History] Ergocalciferol (VITAMIN D2) [Vitamin D2] 2,000 unit PO DAILY 10/21/17 [History] Furosemide [Lasix] 20 mg PO DAILY 10/21/17 [History] Lisinopril [Zestril] 40 mg PO DAILY 10/21/17 [History] Metformin HCl [Glucophage] 1,000 mg PO BID 10/21/17 [History] Ranitidine HCl [Zantac] 150 mg PO BID 10/21/17 [History] Sertraline [Zoloft] 100 mg PO DAILY 10/21/17 [History] Tizanidine HCl [Zanaflex] 2 mg PO TID PRN 10/21/17 [History] Tramadol HCl [Ultram] 50 mg PO Q8H 10/21/17 [History] Metoprolol Succinate 200 mg PO DAILY 30 Days tab.er.24h 10/31/17 [Rx] Amlodipine Besylate [Amlodipine Besylate] 10 mg PO DAILY 11/01/17 [History] Atorvastatin [Lipitor] 10 mg PO HS 11/01/17 [History] HYDROcodone/Acet 7.5/325 mg [[place] 7.5-325 mg] 1 tab PO Q4H PRN #42 tablet 11/01 [Rx] Pioglitazone HCl [Pioglitazone HCl] 30 mg PO DAILY 11/06/17 [History] hydrOXYzine HCl [Hydroxyzine HCl] 25 mg PO TID 11/06/17 [History] 3 Allergy/AdvReac Type Severity Reaction Status Date / Time duloxetine [From Cymbalta] Allergy Agitated Verified 11/06/17 13:37 Paroxetine [From Paxil] Allergy Agitated Verified 11/06/17 13:37 acetaminophen [From Percocet] AdvReac Shakiness Verified 11/06/17 13:37 Oxycodone [From Percocet] AdvReac Shakiness Verified 11/06/17 13:37 - Meds/Allergy Pre-op Review Medications Reviewed: Yes Allergies Reviewed: Yes Beta Blockers on Current Med List: Yes If Beta Blockers taken, Date/Time (Last Dose taken): 11-06-17 metoprolol 9 am Anesthesia Results - Labs 11/03/17 16:15 11/03/17 16:15 - Imaging EKG: report reviewed, image reviewed (SINUS TACHYCARDIA POSSIBLE INFERIOR MYOCARDIAL INFARCTION, OF INDETERMINATE AGE) Anesthesia Exam Last Vital Signs Temp 98.2 F 11/06/17 07:22 Pulse 81 11/06/17 07:22 Resp 17 11/06/17 07:22 BP 148/76 11/06/17 07:22 Pulse Ox 97 11/06/17 07:22 Weight: 83 kg NPO (# of Hours): > 8 hrs - HEENT Pupil (Motor): Pupils equal, EOMI Mallampati: III Teeth: Edentulous Oral Opening: Greater than 3 - CLINICAL SYSTEMS ANALYST LOC: Oriented CLINICAL SYSTEMS ANALYST Motor: Normal RUE, Normal LUE, Normal RLE, Normal LLE, Normal Face - Cardiac Rhythm: Regular Murmur: None - Pulmonary Breath Sounds: bilateral Clear Respiratory Effort: Symmetrical Anesthesia Assess/Plan ASA Score: 3 Modified [place] Scale for Level of Consciousness: Cooperative, oriented, and tranquil Anesthetic Plan: General, Regional Monitoring Plan: Standard Monitors Recovery Plan: PACU
[2017-11-06] MEDS ORDERED: *HR* HYDROcodone/Acet 5/325 mg TABLET PO ONE (14:32)
== END 2017-11-06 12:10 | disposition other institution (70) | DRG 561 ==
LOC: INPPIK 16:47
PROVIDERS: ADMIT Internal Medicine; ATTEND Internal Medicine

== ENCOUNTER 2017-11-07 15:56 | Inpatient (IN) ==
[2017-11-07] MEDS ORDERED: *HR* HYDROcodone/Acet 7.5/325 mg TABLET PO PRN (16:58)
[2017-11-07] MEDS: traMADol 50 MG TABLET PO SCH (17:36)
[2017-11-07] MEDS: hydrOXYzine pamoate 25 MG CAPSULE PO SCH (20:02)
[2017-11-07] MEDS: *HR* HYDROcodone/Acet 7.5/325 mg TABLET PO PRN (20:03)
[2017-11-07] MEDS: Famotidine 20 MG TABLET PO SCH (20:04)
[2017-11-07] MEDS: *HR* Metformin 500 MG TABLET PO SCH (20:04)
[2017-11-07] MEDS: traZODone 50 MG TABLET PO PRN (23:41)
[2017-11-08] MEDS: *HR* HYDROcodone/Acet 7.5/325 mg TABLET PO PRN ×3 (00:01→13:41)
[2017-11-08] MEDS: traMADol 50 MG TABLET PO SCH ×4 (00:02→20:42)
[2017-11-08 05:46] LABS: Basophils % 0.2 %; Eosinophils % 0.3 %; Hematocrit 28.3 % (35.3-44.9); Hemoglobin 9.3 g/dL (11.5-15.4); Immature Granulocytes % 0.5 % (0-4); Lymphocytes % 15.2 %; Mean Corpuscular HGB Conc 32.9 g/dL (31.6-35.5); Mean Corpuscular Hemoglobin 28.1 pg (28.0-33.3); Mean Corpuscular Volume 85.5 fL (83.0-100.0); Mean Platelet Volume 10.1 fL (9.4-12.4); Monocytes # 1.1 K/mcL (0.0-1.3); Monocytes % 8.9 %; Neutrophils # 9.6 K/mcL (1.6-8.9); Platelet Count 271 K/mcL (140-400); Red Blood Count 3.31 M/mcL (3.82-4.97); Red Cell Distribution Width 13.3 % (11.5-14.5); Segmented Neutrophils % 74.9 %
[2017-11-08 05:53] LABS: INR 1.2; Prothrombin Time 12.9 Seconds (9.4-12.1)
[2017-11-08 05:56] LABS: Activated Partial Thrombo Time 37.7 Seconds (26.0-36.0)
[2017-11-08 06:08] LABS: Calcium 9.4 mg/dL (8.6-10.8); Potassium 4.1 mEq/L (3.5-4.5)
[2017-11-08] MEDS: Famotidine 20 MG TABLET PO SCH ×2 (07:59→20:42)
[2017-11-08] MEDS: Lisinopril 20 MG TABLET PO SCH (07:59)
[2017-11-08] MEDS: Metoprolol XL (24 HR) Succ 50 MG TAB.ER.24H PO SCH (08:00)
[2017-11-08] MEDS: *HR* Metformin 500 MG TABLET PO SCH ×3 (08:00→16:44)
[2017-11-08] MEDS: amLODIPine 5 MG TABLET PO SCH (08:00)
[2017-11-08] MEDS: hydrOXYzine pamoate 25 MG CAPSULE PO SCH ×3 (08:00→20:42)
[2017-11-08] MEDS: Aspirin Enteric Coated 81 MG Tablet PO SCH (08:01)
[2017-11-08] MEDS: Cholecalciferol (D-3) 1,000 UNIT TABLET PO SCH (08:01)
[2017-11-08] MEDS ORDERED: *HR* Pioglitazone 15 MG TABLET PO SCH (09:00)
[2017-11-08] MEDS: Furosemide 20 MG TABLET PO SCH (11:52)
[2017-11-08] MEDS: Mag Hydrox/Al Hydrox/Simeth 30 ML UDC PO PRN (13:34)
--- NOTE | 2017-11-08 14:49 | Internal Med History&Physical ---
Date of Encounter: 11/08/17 Time of Encounter: 14:25 Assessment and Plan (1) Status post reverse total shoulder replacement Current visit: No Status: Acute She will have PT and OT intervention. Analgesics will be given further intervention as indicated. Qualifiers: Laterality: right Qualified Code(s): Z96.611 - Presence of right artificial shoulder joint (2) Left wrist fracture Current visit: No Status: Acute As per orthopedist Qualifiers: Encounter type: initial encounter Fracture type: closed Qualified Code(s) : S62.102A - Fracture of unspecified carpal bone, left wrist, initial encounter for closed fracture (3) Anemia Current visit: No Status: Acute Anemia testing done 10/30/2017 reviewed. Continue ferrous sulfate with vitamin C. Qualifiers: Anemia type: unspecified type Qualified Code(s): D64.9 - Anemia, unspecified (4) Hypertension Current visit: No Status: Chronic Continue Norvasc, Toprol, and Lasix Qualifiers: Hypertension type: essential hypertension Qualified Code(s): I10 - Essential (primary) hypertension (5) DM type 2 (diabetes mellitus, type 2) Current visit: Yes Status: Acute Continue metformin. We will discontinue Actos because of edema. Do Accu-Cheks with SSI. Qualifiers: Diabetes mellitus complication status: with unspecified complications Diabetes mellitus exterminator termite insulin use: without exterminator termite use Qualified Code( s): E11.8 - Type 2 diabetes mellitus with unspecified complications Internal Medicine - H&P: HPI Chief complaint: Right shoulder surgery Admitted From: Hospital to Hospital Transfer Plans for Post Hospital Care: Home History of present illness: Ms. Bahena is a 67 year old female who underwent reverse right total shoulder placement by Dr. Knapp at [facility] following a fall with fracture several days earlier. Her postop course was remarkable and she returned to [facility] for swing bed admission for ongoing therapy. She had sustained the fractures from fall at home approximately 3 weeks ago. She had left wrist ORIF plate and screw repair by Dr. Sepulveda 11/01/2017 for a distal radius intra-articular fracture with 3 distal fragments. Her musk skeletal history is otherwise significant for a knee scope in 1985. She has DJD and fibromyalgia but denies gout or other bone joint or muscle disorders. Past Med Surg Social Fam HX - Past Medical History Medical history: non-contributory, diabetes Psychiatric history: anxiety, depression - Past Surgical History Surgical History: non-contributory, other - Social History Smoking Status: Never smoker Smokeless Tobacco Status: No Alcohol use: none Drug use: none Internal Medicine - H&P: Meds Amitriptyline [Elavil] 20 mg PO HS 10/21/17 [History] Aspirin [Lo-Dose Aspirin EC] 81 mg PO DAILY 10/21/17 [History] Ergocalciferol (VITAMIN D2) [Vitamin D2] 2,000 unit PO DAILY 10/21/17 [History] Furosemide [Lasix] 20 mg PO DAILY 10/21/17 [History] Lisinopril [Zestril] 40 mg PO DAILY 10/21/17 [History] Metformin HCl [Glucophage] 1,000 mg PO BID 10/21/17 [History] Ranitidine HCl [Zantac] 150 mg PO BID 10/21/17 [History] Sertraline [Zoloft] 100 mg PO DAILY 10/21/17 [History] Tizanidine HCl [Zanaflex] 2 mg PO TID PRN 10/21/17 [History] Tramadol HCl [Ultram] 50 mg PO Q8H 10/21/17 [History] Metoprolol Succinate 200 mg PO DAILY 30 Days tab.er.24h 10/31/17 [Rx] Amlodipine Besylate 10 mg PO DAILY 11/01/17 [History] Atorvastatin [Lipitor] 10 mg PO HS 11/01/17 [History] HYDROcodone/Acet 7.5/325 mg [[place] 7.5-325 mg] 1 tab PO Q4H PRN #42 tablet 11/01 [Rx] Pioglitazone HCl 30 mg PO DAILY 11/06/17 [History] hydrOXYzine HCl [Hydroxyzine HCl] 25 mg PO TID 11/06/17 [History] 3 Allergy/AdvReac Type Severity Reaction Status Date / Time duloxetine [From Cymbalta] Allergy Agitated Verified 11/06/17 13:37 Paroxetine [From Paxil] Allergy Agitated Verified 11/06/17 13:37 acetaminophen [From Percocet] AdvReac Shakiness Verified 11/06/17 13:37 Oxycodone [From Percocet] AdvReac Shakiness Verified 11/06/17 13:37 All Systems PM: A 10-system review of systems was performed and is negative for pertinent findings except as documented above in the HPI. Review of systems: Review of systems from her recent swing bed [facility] stay were reviewed and revised as below. Gen.: She states her weight has decreased from approximately 285 pounds one year ago to present weight of approximately 225 pounds. This was unintentional. Cardiovascular: She has history of hypertension. She denies MT heart failure angina DVT or pulmonary embolus. She has had edema of her lower legs. Respiratory: She is lifelong nonsmoker and has no known chronic lung disease GI: She has GERD. She denies disorders of her liver gallbladder or exocrine pancreas : She has had UTIs in the past. She denies other kidney or bladder disorders. Neurologic: She is uncertain if she has had a stroke in the past. She denies seizures Endocrine: She was diagnosed with DM 2 approximately 2004. Hemoglobin A1c returned satisfactory 6.1% 10/30/2017. Actos was discontinued to avoid worsening edema. She was continued on metformin and given glimepiride 1 mg daily. She has hyperlipidemia but denies thyroid disease Hematology/oncology: She has anemia but denies blood disorders or cancers. Anemia testing 10/30/2017 showed iron 35, transferrin saturation 13%, transferrin 189, ferritin 185, B12 554, and folate 8.3. Psychiatric: She has anxiety and depression but denies other mental health issues Musk skeletal: As per history of present illness - Constitutional Vitals: Temp Pulse Resp BP Pulse Ox 97.6 F 85 16 132/75 96 11/08/17 06:43 11/08/17 06:43 11/08/17 06:43 11/08/17 06:43 11/08/17 06:43 Exam: General: She is a well-developed well-nourished female lying in bed who appears in minimal pain HEENT: Head is atraumatic and normal cephalic. Eyes: EOMI. There is no scleral icterus. Mouth: Mucosa is moist Neck: There is no thyromegaly or adenopathy noted Heart: Regular without murmurs gallops or ectopics Lungs: No wheezes or crackles are heard anteriorly Abdomen: Soft and nontender. No masses or guarding noted. Extremities: There is no cyanosis edema or clubbing noted. Dorsalis pedis and posterior tibial pulses are trace palpable bilaterally. The left arm has a short arm cast. The right arm is in an immobilizer. There is a surgical dressing on the right anterior shoulder area from recent procedure. Neurologic: Mental status: She is talkative and a good historian. Cranial nerves: Smile is symmetric. Forehead wrinkles bilaterally. Tongue protrudes midline. EOMI. Motor: She moves her left arm minimally. She complains of significant pain on movement of the right arm. She moves her feet well randomly. No further neurologic testing is attempted. Skin: Warm and dry Internal Med - H&P Results - Labs CBC & Chem 7: 11/08/17 05:11 11/08/17 05:11 Labs: Short CBC 11/08/17 Range/Units 05:11 WBC 12.8 H (4.3-11.1) K/mcL Hgb 9.3 L D (11.5-15.4) g/dL Hct 28.3 L (35.3-44.9) % Plt Count 271 (140-400) K/mcL Neutrophils # 9.6 H (1.6-8.9) K/mcL BMP 11/08/17 05:11 Sodium 138 Potassium 4.1 Chloride 100 Carbon Dioxide 28 BUN 38 H Creatinine 1.19 H Glucose 158 H Calcium 9.4
[2017-11-09] MEDS: Ascorbic Acid 500 MG TABLET PO SCH (04:41)
[2017-11-09] MEDS: traMADol 50 MG TABLET PO SCH ×4 (04:42→21:30)
[2017-11-09] MEDS: *HR* Metformin 500 MG TABLET PO SCH ×2 (09:04→16:59)
[2017-11-09] MEDS: Famotidine 20 MG TABLET PO SCH ×2 (09:05→21:30)
[2017-11-09] MEDS: Metoprolol XL (24 HR) Succ 50 MG TAB.ER.24H PO SCH (09:05)
[2017-11-09] MEDS: Cholecalciferol (D-3) 1,000 UNIT TABLET PO SCH (09:05)
[2017-11-09] MEDS: Lisinopril 20 MG TABLET PO SCH (09:05)
[2017-11-09] MEDS: Furosemide 20 MG TABLET PO SCH (09:05)
[2017-11-09] MEDS: amLODIPine 5 MG TABLET PO SCH (09:05)
[2017-11-09] MEDS: Aspirin Enteric Coated 81 MG Tablet PO SCH (09:05)
[2017-11-09] MEDS: hydrOXYzine pamoate 25 MG CAPSULE PO SCH ×3 (09:06→21:30)
[2017-11-09] MEDS: Ondansetron ODT 4 MG TAB.RAPDIS SL PRN (10:52)
[2017-11-09] MEDS: Mag Hydrox/Al Hydrox/Simeth 30 ML UDC PO PRN (10:52)
[2017-11-09] MEDS: *HR* HYDROcodone/Acet 7.5/325 mg TABLET PO PRN (14:01)
[2017-11-10] MEDS: traMADol 50 MG TABLET PO SCH ×4 (05:28→20:55)
[2017-11-10] MEDS: Ascorbic Acid 500 MG TABLET PO SCH (05:28)
[2017-11-10] MEDS: Aspirin Enteric Coated 81 MG Tablet PO SCH (09:11)
[2017-11-10] MEDS: hydrOXYzine pamoate 25 MG CAPSULE PO SCH ×3 (09:11→20:55)
[2017-11-10] MEDS: Famotidine 20 MG TABLET PO SCH ×2 (09:11→20:55)
[2017-11-10] MEDS: amLODIPine 5 MG TABLET PO SCH (09:12)
[2017-11-10] MEDS: Lisinopril 20 MG TABLET PO SCH (09:12)
[2017-11-10] MEDS: *HR* Metformin 500 MG TABLET PO SCH ×2 (09:12→17:05)
[2017-11-10] MEDS: Furosemide 20 MG TABLET PO SCH (09:12)
[2017-11-10] MEDS: Cholecalciferol (D-3) 1,000 UNIT TABLET PO SCH (09:12)
[2017-11-10] MEDS: Metoprolol XL (24 HR) Succ 50 MG TAB.ER.24H PO SCH (09:12)
[2017-11-10] MEDS: Mag Hydrox/Al Hydrox/Simeth 30 ML UDC PO PRN (09:23)
--- NOTE | 2017-11-10 11:53 | Internal Med Progress Note ---
Date of Encounter: 11/10/17 Time of Encounter: 11:45 - Assessment and plan (1) Status post reverse total shoulder replacement Current Visit: No Status: Acute Assessment and plan: November 10. Continue therapy intervention with analgesics. Qualifiers: Laterality: right Qualified Code(s): Z96.611 - Presence of right artificial shoulder joint (2) Left wrist fracture Current Visit: No Status: Acute Assessment and plan: November 10. Continue analgesics. Qualifiers: Encounter type: initial encounter Fracture type: closed Qualified Code(s) : S62.102A - Fracture of unspecified carpal bone, left wrist, initial encounter for closed fracture (3) Anemia Current Visit: No Status: Acute Assessment and plan: November 10. Anemia testing 10/30/2017 reviewed. Continue ferrous sulfate with vitamin C. Qualifiers: Anemia type: unspecified type Qualified Code(s): D64.9 - Anemia, unspecified (4) Hypertension Current Visit: No Status: Chronic Assessment and plan: November 10. Continue Norvasc Toprol and Lasix Qualifiers: Hypertension type: essential hypertension Qualified Code(s): I10 - Essential (primary) hypertension (5) DM type 2 (diabetes mellitus, type 2) Current Visit: Yes Status: Acute Assessment and plan: November 10. Continue metformin and do Accu-Cheks with SSI. Qualifiers: Diabetes mellitus complication status: with unspecified complications Diabetes mellitus exterminator helper insulin use: without shelter use Qualified Code( s): E11.8 - Type 2 diabetes mellitus with unspecified complications - Subjective Interval history: November 10. She has no new complaints and has less pain. - Constitutional Vitals: Temp Pulse Resp BP Pulse Ox 98.2 F 76 14 159/72 95 11/10/17 07:28 11/10/17 07:28 11/10/17 07:28 11/10/17 07:28 11/10/17 07:28 Exam: She is resting comfortably in bed and appears in no acute distress. The swelling in her left fingers appears less. I reviewed her medications and lab results. Internal Medicine: Result - Labs CBC & Chem 7: 11/08/17 05:11 11/08/17 05:11 - ABG Interpretation ABG results: PT/INR, D-dimer PT 12.9 Seconds (9.4-12.1) H 11/08/17 05:11 Consult Discharge Plan - Plan Referrals: Gavin Mcdonald DO [Primary Care Provider] - 1 week
[2017-11-11] MEDS: Ascorbic Acid 500 MG TABLET PO SCH (04:55)
[2017-11-11] MEDS: traMADol 50 MG TABLET PO SCH ×3 (04:56→16:46)
[2017-11-11 06:20] LABS: Basophils % 0.3 %; Eosinophils # 0.1 K/mcL (0.0-0.6); Eosinophils % 1.2 %; Hematocrit 27.3 % (35.3-44.9); Immature Granulocytes % 0.1 % (0-4); Mean Corpuscular Hemoglobin 28.3 pg (28.0-33.3); Mean Corpuscular Volume 85.8 fL (83.0-100.0); Mean Platelet Volume 10.1 fL (9.4-12.4); Monocytes # 0.6 K/mcL (0.0-1.3); Monocytes % 7.9 %; Neutrophils # 4.7 K/mcL (1.6-8.9); Platelet Count 244 K/mcL (140-400); Red Blood Count 3.18 M/mcL (3.82-4.97); Red Cell Distribution Width 13.2 % (11.5-14.5); Segmented Neutrophils % 63.5 %
[2017-11-11 06:35] LABS: BUN/Creatinine Ratio 35 (6-26); Blood Urea Nitrogen 30 mg/dL (7-20); Calcium 9.6 mg/dL (8.6-10.8); Carbon Dioxide 29 mEq/L (19-29); Chloride 99 mEq/L (98-109); Glucose 108 mg/dL (70-99); Osmolality,Calculated 295 (280-300); Potassium 4.4 mEq/L (3.5-4.5); Sodium 139 mEq/L (136-145); eGFR For African Americans > 60 (> 60); eGFR For Non-African Americans > 60 (> 60)
[2017-11-11] MEDS: Aspirin Enteric Coated 81 MG Tablet PO SCH (09:15)
[2017-11-11] MEDS: Metoprolol XL (24 HR) Succ 50 MG TAB.ER.24H PO SCH (09:15)
[2017-11-11] MEDS: hydrOXYzine pamoate 25 MG CAPSULE PO SCH ×3 (09:15→21:05)
[2017-11-11] MEDS: Lisinopril 20 MG TABLET PO SCH (09:15)
[2017-11-11] MEDS: Cholecalciferol (D-3) 1,000 UNIT TABLET PO SCH (09:16)
[2017-11-11] MEDS: Furosemide 20 MG TABLET PO SCH (09:16)
[2017-11-11] MEDS: Famotidine 20 MG TABLET PO SCH ×2 (09:16→21:05)
[2017-11-11] MEDS: *HR* Metformin 500 MG TABLET PO SCH ×2 (09:16→16:46)
[2017-11-11] MEDS: amLODIPine 5 MG TABLET PO SCH (09:16)
[2017-11-11] MEDS: Mag Hydrox/Al Hydrox/Simeth 30 ML UDC PO PRN (10:54)
[2017-11-11] MEDS: *HR* HYDROcodone/Acet 7.5/325 mg TABLET PO PRN (21:03)
[2017-11-12] MEDS: Ascorbic Acid 500 MG TABLET PO SCH (05:33)
[2017-11-12] MEDS: traMADol 50 MG TABLET PO SCH ×5 (05:33→20:18)
[2017-11-12] MEDS: *HR* HYDROcodone/Acet 7.5/325 mg TABLET PO PRN ×3 (05:34→13:56)
[2017-11-12] MEDS: Furosemide 20 MG TABLET PO SCH (08:33)
[2017-11-12] MEDS: *HR* Metformin 500 MG TABLET PO SCH ×2 (08:33→17:43)
[2017-11-12] MEDS: hydrOXYzine pamoate 25 MG CAPSULE PO SCH ×3 (08:34→20:17)
[2017-11-12] MEDS: Metoprolol XL (24 HR) Succ 50 MG TAB.ER.24H PO SCH (08:34)
[2017-11-12] MEDS: Aspirin Enteric Coated 81 MG Tablet PO SCH (08:34)
[2017-11-12] MEDS: Famotidine 20 MG TABLET PO SCH ×2 (08:34→20:17)
[2017-11-12] MEDS: Lisinopril 20 MG TABLET PO SCH (08:34)
[2017-11-12] MEDS: Cholecalciferol (D-3) 1,000 UNIT TABLET PO SCH (08:35)
[2017-11-12] MEDS: amLODIPine 5 MG TABLET PO SCH (08:35)
[2017-11-12] MEDS: Mag Hydrox/Al Hydrox/Simeth 30 ML UDC PO PRN ×2 (12:04→20:18)
[2017-11-13] MEDS: traMADol 50 MG TABLET PO SCH ×5 (03:11→21:12)
[2017-11-13] MEDS: Ascorbic Acid 500 MG TABLET PO SCH (05:44)
[2017-11-13] MEDS: *HR* HYDROcodone/Acet 7.5/325 mg TABLET PO PRN (06:32)
[2017-11-13] MEDS: Aspirin Enteric Coated 81 MG Tablet PO SCH (10:20)
[2017-11-13] MEDS: Cholecalciferol (D-3) 1,000 UNIT TABLET PO SCH (10:20)
[2017-11-13] MEDS: Metoprolol XL (24 HR) Succ 50 MG TAB.ER.24H PO SCH (10:20)
[2017-11-13] MEDS: Furosemide 20 MG TABLET PO SCH (10:21)
[2017-11-13] MEDS: Famotidine 20 MG TABLET PO SCH ×2 (10:21→21:12)
[2017-11-13] MEDS: *HR* Metformin 500 MG TABLET PO SCH ×2 (10:21→17:04)
[2017-11-13] MEDS: amLODIPine 5 MG TABLET PO SCH (10:21)
[2017-11-13] MEDS: hydrOXYzine pamoate 25 MG CAPSULE PO SCH ×3 (10:21→21:12)
[2017-11-13] MEDS: Lisinopril 20 MG TABLET PO SCH (10:21)
--- NOTE | 2017-11-13 12:24 | Internal Med Progress Note ---
Date of Encounter: 11/13/17 Time of Encounter: 12:15 - Assessment and plan (1) Status post reverse total shoulder replacement Current Visit: No Status: Acute Assessment and plan: November 10. Continue therapy intervention with analgesics. Qualifiers: Laterality: right Qualified Code(s): Z96.611 - Presence of right artificial shoulder joint (2) Left wrist fracture Current Visit: No Status: Acute Assessment and plan: November 10. Continue analgesics. Qualifiers: Encounter type: initial encounter Fracture type: closed Qualified Code(s) : S62.102A - Fracture of unspecified carpal bone, left wrist, initial encounter for closed fracture (3) Anemia Current Visit: No Status: Acute Assessment and plan: November 10. Anemia testing 10/30/2017 reviewed. Continue ferrous sulfate with vitamin C. November 13. Continue to monitor CBC. Qualifiers: Anemia type: unspecified type Qualified Code(s): D64.9 - Anemia, unspecified (4) Hypertension Current Visit: No Status: Chronic Assessment and plan: November 10. Continue Norvasc Toprol and Lasix Qualifiers: Hypertension type: essential hypertension Qualified Code(s): I10 - Essential (primary) hypertension (5) DM type 2 (diabetes mellitus, type 2) Current Visit: Yes Status: Acute Assessment and plan: November 10. Continue metformin and do Accu-Cheks with SSI. Qualifiers: Diabetes mellitus complication status: with unspecified complications Diabetes mellitus vermin exterminator insulin use: without vermin exterminator use Qualified Code( s): E11.8 - Type 2 diabetes mellitus with unspecified complications (6) Constipation Current Visit: Yes Status: Acute Assessment and plan: November 13. We will give glycerin suppository and Dulcolax tablets. Will start MOM scheduled every other day. Qualifiers: Constipation type: unspecified constipation type Qualified Code(s): K59.00 - Constipation, unspecified - Subjective Interval history: November 10. She has no new complaints and has less pain. November 13. She complains of constipation. She feels she is making satisfactory progress in therapy. - Constitutional Vitals: Temp Pulse Resp BP Pulse Ox 98.1 F 84 16 144/68 95 11/13/17 08:16 11/13/17 08:16 11/13/17 08:16 11/13/17 08:16 11/13/17 08:16 Exam: She is sitting on the bedside commode and appears to have discomfort from constipation. Her affect was overall cheerful however. I reviewed her medications and lab results. Internal Medicine: Result - Labs CBC & Chem 7: 11/11/17 05:35 11/11/17 05:35 - ABG Interpretation ABG results: PT/INR, D-dimer PT 12.9 Seconds (9.4-12.1) H 11/08/17 05:11 Consult Discharge Plan - Plan Referrals: Gavin Mcdonald DO [Primary Care Provider] - 1 week
[2017-11-13] MEDS ORDERED: Glycerin RECTAL Suppository RC ONE ×2 (12:25→12:45)
[2017-11-13] MEDS: MOM Conc 10 ML UD.LIQ PO SCH (12:50)
[2017-11-14] MEDS: traMADol 50 MG TABLET PO SCH ×3 (03:54→16:03)
[2017-11-14 06:07] LABS: Basophils % 0.4 %; Eosinophils # 0.1 K/mcL (0.0-0.6); Eosinophils % 1.5 %; Hematocrit 26.7 % (35.3-44.9); Hemoglobin 8.7 g/dL (11.5-15.4); Immature Granulocytes % 0.2 % (0-4); Lymphocytes # 2.3 K/mcL (0.6-4.6); Lymphocytes % 26.9 %; Mean Corpuscular HGB Conc 32.6 g/dL (31.6-35.5); Mean Corpuscular Hemoglobin 28.3 pg (28.0-33.3); Mean Platelet Volume 10.2 fL (9.4-12.4); Monocytes # 0.6 K/mcL (0.0-1.3); Monocytes % 7.1 %; Neutrophils # 5.4 K/mcL (1.6-8.9); Platelet Count 241 K/mcL (140-400); Red Blood Count 3.07 M/mcL (3.82-4.97); Red Cell Distribution Width 13.6 % (11.5-14.5); Segmented Neutrophils % 63.9 %
[2017-11-14] MEDS: Ascorbic Acid 500 MG TABLET PO SCH (06:26)
[2017-11-14 06:30] LABS: BUN/Creatinine Ratio 29 (6-26); Blood Urea Nitrogen 32 mg/dL (7-20); Calcium 9.8 mg/dL (8.6-10.8); Carbon Dioxide 29 mEq/L (19-29); Chloride 102 mEq/L (98-109); Glucose 101 mg/dL (70-99); Magnesium 1.6 mg/dL (1.6-2.6); Osmolality,Calculated 299 (280-300); Potassium 4.1 mEq/L (3.5-4.5); Sodium 141 mEq/L (136-145); eGFR For African Americans > 60 (> 60); eGFR For Non-African Americans 50 (> 60)
[2017-11-14] MEDS: Metoprolol XL (24 HR) Succ 50 MG TAB.ER.24H PO SCH (08:25)
[2017-11-14] MEDS: Cholecalciferol (D-3) 1,000 UNIT TABLET PO SCH (08:25)
[2017-11-14] MEDS: hydrOXYzine pamoate 25 MG CAPSULE PO SCH ×3 (08:26→20:08)
[2017-11-14] MEDS: *HR* Metformin 500 MG TABLET PO SCH ×2 (08:26→16:03)
[2017-11-14] MEDS: Famotidine 20 MG TABLET PO SCH ×2 (08:27→20:08)
[2017-11-14] MEDS: amLODIPine 5 MG TABLET PO SCH (08:27)
[2017-11-14] MEDS: Aspirin Enteric Coated 81 MG Tablet PO SCH (08:27)
[2017-11-14] MEDS: Lisinopril 20 MG TABLET PO SCH (08:27)
[2017-11-14] MEDS: Furosemide 20 MG TABLET PO SCH (08:27)
[2017-11-14] MEDS: *HR* HYDROcodone/Acet 7.5/325 mg TABLET PO PRN ×2 (11:14→18:49)
[2017-11-14] MEDS: traZODone 50 MG TABLET PO PRN (20:08)
[2017-11-15] MEDS: traMADol 50 MG TABLET PO SCH ×4 (06:14→21:28)
[2017-11-15] MEDS: Ascorbic Acid 500 MG TABLET PO SCH (06:15)
[2017-11-15] MEDS: Mag Hydrox/Al Hydrox/Simeth 30 ML UDC PO PRN (08:28)
[2017-11-15] MEDS: Aspirin Enteric Coated 81 MG Tablet PO SCH (08:29)
[2017-11-15] MEDS: Cholecalciferol (D-3) 1,000 UNIT TABLET PO SCH (08:29)
[2017-11-15] MEDS: *HR* Metformin 500 MG TABLET PO SCH ×2 (08:30→17:38)
[2017-11-15] MEDS: hydrOXYzine pamoate 25 MG CAPSULE PO SCH ×3 (08:30→21:24)
[2017-11-15] MEDS: amLODIPine 5 MG TABLET PO SCH (08:31)
[2017-11-15] MEDS: *HR* HYDROcodone/Acet 7.5/325 mg TABLET PO PRN ×2 (08:31→21:27)
[2017-11-15] MEDS: Famotidine 20 MG TABLET PO SCH ×2 (08:31→21:24)
[2017-11-15] MEDS: Lisinopril 20 MG TABLET PO SCH (08:31)
[2017-11-15] MEDS: Metoprolol XL (24 HR) Succ 50 MG TAB.ER.24H PO SCH (08:38)
[2017-11-15] MEDS: MOM Conc 10 ML UD.LIQ PO SCH (12:41)
[2017-11-15] MEDS: Furosemide 20 MG TABLET PO SCH (12:41)
[2017-11-15] MEDS: traZODone 50 MG TABLET PO PRN (21:24)
[2017-11-16] MEDS: traMADol 50 MG TABLET PO SCH ×3 (03:38→16:09)
[2017-11-16] MEDS: Ascorbic Acid 500 MG TABLET PO SCH (06:57)
[2017-11-16] MEDS: *HR* Metformin 500 MG TABLET PO SCH ×2 (10:17→16:09)
[2017-11-16] MEDS: Aspirin Enteric Coated 81 MG Tablet PO SCH (10:17)
[2017-11-16] MEDS: Lisinopril 20 MG TABLET PO SCH (10:18)
[2017-11-16] MEDS: Cholecalciferol (D-3) 1,000 UNIT TABLET PO SCH (10:18)
[2017-11-16] MEDS: amLODIPine 5 MG TABLET PO SCH (10:18)
[2017-11-16] MEDS: Metoprolol XL (24 HR) Succ 50 MG TAB.ER.24H PO SCH (10:18)
[2017-11-16] MEDS: Famotidine 20 MG TABLET PO SCH ×2 (10:18→20:06)
[2017-11-16] MEDS: Furosemide 20 MG TABLET PO SCH (10:18)
[2017-11-16] MEDS: hydrOXYzine pamoate 25 MG CAPSULE PO SCH ×3 (10:18→20:06)
[2017-11-16] MEDS: *HR* HYDROcodone/Acet 7.5/325 mg TABLET PO PRN (20:06)
[2017-11-17] MEDS: traMADol 50 MG TABLET PO SCH ×5 (00:46→20:42)
[2017-11-17] MEDS: Ascorbic Acid 500 MG TABLET PO SCH (06:54)
[2017-11-17] MEDS: *HR* Metformin 500 MG TABLET PO SCH ×2 (08:43→17:09)
[2017-11-17] MEDS: Lisinopril 20 MG TABLET PO SCH (08:44)
[2017-11-17] MEDS: Cholecalciferol (D-3) 1,000 UNIT TABLET PO SCH (08:44)
[2017-11-17] MEDS: amLODIPine 5 MG TABLET PO SCH (08:44)
[2017-11-17] MEDS: Furosemide 20 MG TABLET PO SCH (08:44)
[2017-11-17] MEDS: Aspirin Enteric Coated 81 MG Tablet PO SCH (08:44)
[2017-11-17] MEDS: hydrOXYzine pamoate 25 MG CAPSULE PO SCH ×3 (08:44→20:43)
[2017-11-17] MEDS: Famotidine 20 MG TABLET PO SCH (08:44)
[2017-11-17] MEDS: Metoprolol XL (24 HR) Succ 50 MG TAB.ER.24H PO SCH (08:45)
--- NOTE | 2017-11-17 12:11 | Internal Med Progress Note ---
Date of Encounter: 11/17/17 Time of Encounter: 12:05 - Assessment and plan (1) Status post reverse total shoulder replacement Current Visit: No Status: Acute Assessment and plan: November 10. Continue therapy intervention with analgesics. Qualifiers: Laterality: right Qualified Code(s): Z96.611 - Presence of right artificial shoulder joint (2) Left wrist fracture Current Visit: No Status: Acute Assessment and plan: November 10. Continue analgesics. Qualifiers: Encounter type: initial encounter Fracture type: closed Qualified Code(s) : S62.102A - Fracture of unspecified carpal bone, left wrist, initial encounter for closed fracture (3) Anemia Current Visit: No Status: Acute Assessment and plan: November 10. Anemia testing 10/30/2017 reviewed. Continue ferrous sulfate with vitamin C. November 13. Continue to monitor CBC. November 17. She does not know why she is taking aspirin. I will discontinue it. Continue ferrous sulfate with vitamin C. Continue to monitor CBC. Qualifiers: Anemia type: unspecified type Qualified Code(s): D64.9 - Anemia, unspecified (4) Hypertension Current Visit: No Status: Chronic Assessment and plan: November 10. Continue Norvasc Toprol and Lasix November 17. Blood pressure show significant fluctuation. Continue present regimen for now Qualifiers: Hypertension type: essential hypertension Qualified Code(s): I10 - Essential (primary) hypertension (5) DM type 2 (diabetes mellitus, type 2) Current Visit: Yes Status: Acute Assessment and plan: November 10. Continue metformin and do Accu-Cheks with SSI. November 17. Blood sugars are higher than desirable. Will add glimepiride 1 mg daily. Continue Accu-Cheks with SSI. Qualifiers: Diabetes mellitus complication status: with unspecified complications Diabetes mellitus technician terminal and repeater insulin use: without technician terminal and repeater use Qualified Code( s): E11.8 - Type 2 diabetes mellitus with unspecified complications (6) Constipation Current Visit: Yes Status: Acute Assessment and plan: November 13. We will give glycerin suppository and Dulcolax tablets. Will start MOM scheduled every other day. November 17. Continue scheduled MOM every other day Qualifiers: Constipation type: unspecified constipation type Qualified Code(s): K59.00 - Constipation, unspecified - Subjective Interval history: November 10. She has no new complaints and has less pain. Leonila 3. She complains of constipation. She feels she is making satisfactory progress in therapy. November 17. She has no new complaints and feels she is making satisfactory progress. - Constitutional Vitals: Temp Pulse Resp BP Pulse Ox 98.3 F 72 16 135/70 97 11/17/17 06:37 11/17/17 06:37 11/17/17 06:37 11/17/17 06:37 11/17/17 06:37 Exam: She is sitting in a chair at bedside and appears in no acute distress. Her affect is bright and cheerful. I reviewed her medications and lab results. Internal Medicine: Result - Labs CBC & Chem 7: 11/14/17 04:14 11/14/17 04:14 - ABG Interpretation ABG results: PT/INR, D-dimer PT 12.9 Seconds (9.4-12.1) H 11/08/17 05:11 Consult Discharge Plan - Plan Referrals: Gavin Mcdonald DO [Primary Care Provider] - 1 week
[2017-11-17] MEDS: MOM Conc 10 ML UD.LIQ PO SCH (13:29)
[2017-11-17] MEDS: traZODone 50 MG TABLET PO PRN (20:43)
[2017-11-17] MEDS: *HR* HYDROcodone/Acet 7.5/325 mg TABLET PO PRN (23:52)
[2017-11-18] MEDS: traMADol 50 MG TABLET PO SCH ×4 (03:33→21:18)
[2017-11-18] MEDS: Ascorbic Acid 500 MG TABLET PO SCH (06:34)
[2017-11-18] MEDS: Famotidine 20 MG TABLET PO SCH (08:54)
[2017-11-18] MEDS: *HR* Metformin 500 MG TABLET PO SCH ×2 (08:54→17:41)
[2017-11-18] MEDS: Metoprolol XL (24 HR) Succ 50 MG TAB.ER.24H PO SCH (08:54)
[2017-11-18] MEDS: Lisinopril 20 MG TABLET PO SCH (08:54)
[2017-11-18] MEDS: Cholecalciferol (D-3) 1,000 UNIT TABLET PO SCH (08:55)
[2017-11-18] MEDS: amLODIPine 5 MG TABLET PO SCH (08:55)
[2017-11-18] MEDS: *HR* Glimepiride 2 MG TABLET PO SCH (08:55)
[2017-11-18] MEDS: hydrOXYzine pamoate 25 MG CAPSULE PO SCH ×3 (08:55→21:18)
[2017-11-18] MEDS: Furosemide 20 MG TABLET PO SCH (08:56)
[2017-11-18] MEDS: Ondansetron ODT 4 MG TAB.RAPDIS SL PRN (11:10)
[2017-11-18] MEDS: traZODone 50 MG TABLET PO PRN (23:05)
[2017-11-19] MEDS: traMADol 50 MG TABLET PO SCH ×4 (06:10→21:26)
[2017-11-19] MEDS: Ascorbic Acid 500 MG TABLET PO SCH (06:24)
[2017-11-19] MEDS: *HR* Metformin 500 MG TABLET PO SCH ×2 (07:57→16:45)
[2017-11-19] MEDS: Lisinopril 20 MG TABLET PO SCH (07:57)
[2017-11-19] MEDS: hydrOXYzine pamoate 25 MG CAPSULE PO SCH ×3 (07:57→21:27)
[2017-11-19] MEDS: Cholecalciferol (D-3) 1,000 UNIT TABLET PO SCH (07:58)
[2017-11-19] MEDS: Metoprolol XL (24 HR) Succ 50 MG TAB.ER.24H PO SCH (07:58)
[2017-11-19] MEDS: Famotidine 20 MG TABLET PO SCH (07:58)
[2017-11-19] MEDS: *HR* Glimepiride 2 MG TABLET PO SCH (07:58)
[2017-11-19] MEDS: Furosemide 20 MG TABLET PO SCH (07:58)
[2017-11-19] MEDS: amLODIPine 5 MG TABLET PO SCH (07:58)
[2017-11-19] MEDS: MOM Conc 10 ML UD.LIQ PO SCH (16:45)
[2017-11-20] MEDS: Ascorbic Acid 500 MG TABLET PO SCH (05:18)
[2017-11-20] MEDS: traMADol 50 MG TABLET PO SCH ×4 (05:18→19:15)
[2017-11-20] MEDS: Furosemide 20 MG TABLET PO SCH (07:43)
[2017-11-20] MEDS: Lisinopril 20 MG TABLET PO SCH (07:43)
[2017-11-20] MEDS: *HR* Metformin 500 MG TABLET PO SCH ×2 (07:43→15:52)
[2017-11-20] MEDS: Metoprolol XL (24 HR) Succ 50 MG TAB.ER.24H PO SCH (07:43)
[2017-11-20] MEDS: Famotidine 20 MG TABLET PO SCH (07:43)
[2017-11-20] MEDS: *HR* Glimepiride 2 MG TABLET PO SCH (07:44)
[2017-11-20] MEDS: Cholecalciferol (D-3) 1,000 UNIT TABLET PO SCH (07:44)
[2017-11-20] MEDS: hydrOXYzine pamoate 25 MG CAPSULE PO SCH ×3 (07:44→19:14)
[2017-11-20] MEDS: amLODIPine 5 MG TABLET PO SCH (07:44)
[2017-11-21] MEDS: Ascorbic Acid 500 MG TABLET PO SCH (05:16)
[2017-11-21] MEDS: traMADol 50 MG TABLET PO SCH ×4 (05:16→18:55)
[2017-11-21] MEDS: hydrOXYzine pamoate 25 MG CAPSULE PO SCH ×3 (08:07→19:47)
[2017-11-21] MEDS: Furosemide 20 MG TABLET PO SCH (08:07)
[2017-11-21] MEDS: *HR* Glimepiride 2 MG TABLET PO SCH (08:07)
[2017-11-21] MEDS: Famotidine 20 MG TABLET PO SCH (08:07)
[2017-11-21] MEDS: *HR* Metformin 500 MG TABLET PO SCH ×2 (08:07→18:56)
[2017-11-21] MEDS: amLODIPine 5 MG TABLET PO SCH (08:07)
[2017-11-21] MEDS: Lisinopril 20 MG TABLET PO SCH (08:07)
[2017-11-21] MEDS: Metoprolol XL (24 HR) Succ 50 MG TAB.ER.24H PO SCH (08:07)
[2017-11-21] MEDS: Cholecalciferol (D-3) 1,000 UNIT TABLET PO SCH (08:08)
[2017-11-21] MEDS: MOM Conc 10 ML UD.LIQ PO SCH (12:52)
[2017-11-22] MEDS: traMADol 50 MG TABLET PO SCH ×4 (05:31→21:20)
[2017-11-22] MEDS: Ascorbic Acid 500 MG TABLET PO SCH (05:31)
[2017-11-22] MEDS: Cholecalciferol (D-3) 1,000 UNIT TABLET PO SCH (07:57)
[2017-11-22] MEDS: Lisinopril 20 MG TABLET PO SCH (07:57)
[2017-11-22] MEDS: hydrOXYzine pamoate 25 MG CAPSULE PO SCH ×3 (07:58→19:57)
[2017-11-22] MEDS: Famotidine 20 MG TABLET PO SCH (07:58)
[2017-11-22] MEDS: *HR* Metformin 500 MG TABLET PO SCH ×2 (07:58→15:19)
[2017-11-22] MEDS: Furosemide 20 MG TABLET PO SCH (07:58)
[2017-11-22] MEDS: Metoprolol XL (24 HR) Succ 50 MG TAB.ER.24H PO SCH (07:58)
[2017-11-22] MEDS: amLODIPine 5 MG TABLET PO SCH (07:58)
[2017-11-22] MEDS: *HR* Glimepiride 2 MG TABLET PO SCH (07:59)
--- NOTE | 2017-11-22 14:46 | Internal Med Progress Note ---
Date of Encounter: 11/22/17 Time of Encounter: 14:40 - Assessment and plan (1) Status post reverse total shoulder replacement Current Visit: No Status: Acute Assessment and plan: November 10. Continue therapy intervention with analgesics. Qualifiers: Laterality: right Qualified Code(s): Z96.611 - Presence of right artificial shoulder joint (2) Left wrist fracture Current Visit: No Status: Acute Assessment and plan: November 10. Continue analgesics. Qualifiers: Encounter type: initial encounter Fracture type: closed Qualified Code(s) : S62.102A - Fracture of unspecified carpal bone, left wrist, initial encounter for closed fracture (3) Anemia Current Visit: No Status: Acute Assessment and plan: November 10. Anemia testing 10/30/2017 reviewed. Continue ferrous sulfate with vitamin C. November 13. Continue to monitor CBC. November 17. She does not know why she is taking aspirin. I will discontinue it. Continue ferrous sulfate with vitamin C. Continue to monitor CBC. November 22. We will check labs in a.m. Qualifiers: Anemia type: unspecified type Qualified Code(s): D64.9 - Anemia, unspecified (4) Hypertension Current Visit: No Status: Chronic Assessment and plan: November 10. Continue Norvasc Toprol and Lasix November 17. Blood pressure show significant fluctuation. Continue present regimen for now November 22. Continue Norvasc, Lasix, Zestril, and Toprol. Qualifiers: Hypertension type: essential hypertension Qualified Code(s): I10 - Essential (primary) hypertension (5) DM type 2 (diabetes mellitus, type 2) Current Visit: Yes Status: Acute Assessment and plan: November 10. Continue metformin and do Accu-Cheks with SSI. November 17. Blood sugars are higher than desirable. Will add glimepiride 1 mg daily. Continue Accu-Cheks with SSI. November 22. Blood sugars improved. Continue glimepiride and Accu-Cheks with SSI Qualifiers: Diabetes mellitus complication status: with unspecified complications Diabetes mellitus group home insulin use: without local company intermodal truck driver use Qualified Code( s): E11.8 - Type 2 diabetes mellitus with unspecified complications (6) Constipation Current Visit: Yes Status: Acute Assessment and plan: November 13. We will give glycerin suppository and Dulcolax tablets. Will start MOM scheduled every other day. November 17. Continue scheduled MOM every other day Qualifiers: Constipation type: unspecified constipation type Qualified Code(s): K59.00 - Constipation, unspecified - Subjective Interval history: November 10. She has no new complaints and has less pain. November 13. She complains of constipation. She feels she is making satisfactory progress in therapy. November 17. She has no new complaints and feels she is making satisfactory progress. November 22. She has no new complaints - Constitutional Vitals: Temp Pulse Resp BP Pulse Ox 97.9 F 74 16 146/63 97 11/22/17 07:04 11/22/17 07:04 11/22/17 07:04 11/22/17 07:04 11/22/17 07:04 Exam: She is resting comfortably in bed and appears in no acute distress. Her legs showed no edema. Her affect is bright and cheerful. I reviewed her medications and lab results. Internal Medicine: Result - Labs CBC & Chem 7: 11/14/17 04:14 11/14/17 04:14 - ABG Interpretation ABG results: PT/INR, D-dimer PT 12.9 Seconds (9.4-12.1) H 11/08/17 05:11 - VTE Documentation of Mechanical Device: Graduated compression elastic hosiery Consult Discharge Plan - Plan Referrals: Gavin Mcdonald DO [Primary Care Provider] - 1 week
[2017-11-22] MEDS: *HR* HYDROcodone/Acet 7.5/325 mg TABLET PO PRN (18:56)
[2017-11-23] MEDS: traMADol 50 MG TABLET PO SCH ×6 (04:41→22:10)
[2017-11-23] MEDS: *HR* HYDROcodone/Acet 7.5/325 mg TABLET PO PRN ×2 (06:05→21:04)
[2017-11-23] MEDS: Ascorbic Acid 500 MG TABLET PO SCH (06:06)
[2017-11-23] MEDS: *HR* Glimepiride 2 MG TABLET PO SCH (07:53)
[2017-11-23] MEDS: *HR* Metformin 500 MG TABLET PO SCH ×2 (07:59→17:00)
[2017-11-23] MEDS: Famotidine 20 MG TABLET PO SCH (07:59)
[2017-11-23] MEDS: hydrOXYzine pamoate 25 MG CAPSULE PO SCH ×3 (07:59→20:59)
[2017-11-23] MEDS: Cholecalciferol (D-3) 1,000 UNIT TABLET PO SCH (07:59)
[2017-11-23] MEDS: Furosemide 20 MG TABLET PO SCH (07:59)
[2017-11-23] MEDS: Lisinopril 20 MG TABLET PO SCH (08:02)
[2017-11-23] MEDS: Metoprolol XL (24 HR) Succ 50 MG TAB.ER.24H PO SCH (08:02)
[2017-11-23] MEDS: amLODIPine 5 MG TABLET PO SCH (08:02)
[2017-11-23] MEDS: MOM Conc 10 ML UD.LIQ PO SCH (12:24)
[2017-11-23] MEDS: traZODone 50 MG TABLET PO PRN (23:45)
[2017-11-24] MEDS: traMADol 50 MG TABLET PO SCH ×4 (04:39→20:23)
[2017-11-24] MEDS: Ascorbic Acid 500 MG TABLET PO SCH (06:21)
[2017-11-24] MEDS: amLODIPine 5 MG TABLET PO SCH (08:39)
[2017-11-24] MEDS: *HR* Glimepiride 2 MG TABLET PO SCH ×2 (08:39→13:04)
[2017-11-24] MEDS: Cholecalciferol (D-3) 1,000 UNIT TABLET PO SCH (08:40)
[2017-11-24] MEDS: Famotidine 20 MG TABLET PO SCH (08:40)
[2017-11-24] MEDS: *HR* Metformin 500 MG TABLET PO SCH ×2 (08:40→16:54)
[2017-11-24] MEDS: hydrOXYzine pamoate 25 MG CAPSULE PO SCH ×3 (08:41→20:23)
[2017-11-24] MEDS: Furosemide 20 MG TABLET PO SCH (08:41)
[2017-11-24] MEDS: Metoprolol XL (24 HR) Succ 50 MG TAB.ER.24H PO SCH (08:41)
[2017-11-24] MEDS: Lisinopril 20 MG TABLET PO SCH (08:41)
[2017-11-24] MEDS: *HR* HYDROcodone/Acet 7.5/325 mg TABLET PO PRN (20:22)
[2017-11-24] MEDS: MOM Conc 10 ML UD.LIQ PO SCH (22:13)
[2017-11-24] MEDS: traZODone 50 MG TABLET PO PRN (23:22)
[2017-11-25] MEDS: traMADol 50 MG TABLET PO SCH ×4 (06:16→21:08)
[2017-11-25] MEDS: Ascorbic Acid 500 MG TABLET PO SCH (06:17)
[2017-11-25] MEDS: *HR* Metformin 500 MG TABLET PO SCH ×2 (08:35→16:49)
[2017-11-25] MEDS: amLODIPine 5 MG TABLET PO SCH (08:35)
[2017-11-25] MEDS: Metoprolol XL (24 HR) Succ 50 MG TAB.ER.24H PO SCH (08:35)
[2017-11-25] MEDS: Cholecalciferol (D-3) 1,000 UNIT TABLET PO SCH (08:36)
[2017-11-25] MEDS: Lisinopril 20 MG TABLET PO SCH (08:36)
[2017-11-25] MEDS: hydrOXYzine pamoate 25 MG CAPSULE PO SCH ×3 (08:36→21:08)
[2017-11-25] MEDS: Furosemide 20 MG TABLET PO SCH (08:36)
[2017-11-25] MEDS: Famotidine 20 MG TABLET PO SCH (08:36)
[2017-11-25] MEDS: *HR* Glimepiride 2 MG TABLET PO SCH ×2 (08:37→13:57)
--- NOTE | 2017-11-25 12:24 | Internal Med Progress Note ---
Date of Encounter: 11/25/17 Time of Encounter: 12:15 - Assessment and plan (1) Status post reverse total shoulder replacement Current Visit: No Status: Acute Assessment and plan: November 10. Continue therapy intervention with analgesics. Qualifiers: Laterality: right Qualified Code(s): Z96.611 - Presence of right artificial shoulder joint (2) Left wrist fracture Current Visit: No Status: Acute Assessment and plan: November 10. Continue analgesics. Qualifiers: Encounter type: initial encounter Fracture type: closed Qualified Code(s) : S62.102A - Fracture of unspecified carpal bone, left wrist, initial encounter for closed fracture (3) Anemia Current Visit: No Status: Acute Assessment and plan: November 10. Anemia testing 10/30/2017 reviewed. Continue ferrous sulfate with vitamin C. November 13. Continue to monitor CBC. November 17. She does not know why she is taking aspirin. I will discontinue it. Continue ferrous sulfate with vitamin C. Continue to monitor CBC. November 22. We will check labs in a.m. Qualifiers: Anemia type: unspecified type Qualified Code(s): D64.9 - Anemia, unspecified (4) Hypertension Current Visit: No Status: Chronic Assessment and plan: November 10. Continue Norvasc Toprol and Lasix November 17. Blood pressure show significant fluctuation. Continue present regimen for now November 22. Continue Norvasc, Lasix, Zestril, and Toprol. Qualifiers: Hypertension type: essential hypertension Qualified Code(s): I10 - Essential (primary) hypertension (5) DM type 2 (diabetes mellitus, type 2) Current Visit: Yes Status: Acute Assessment and plan: November 10. Continue metformin and do Accu-Cheks with SSI. November 17. Blood sugars are higher than desirable. Will add glimepiride 1 mg daily. Continue Accu-Cheks with SSI. November 22. Blood sugars improved. Continue glimepiride and Accu-Cheks with SSI Qualifiers: Diabetes mellitus complication status: with unspecified complications Diabetes mellitus detention insulin use: without exterminator termite use Qualified Code( s): E11.8 - Type 2 diabetes mellitus with unspecified complications (6) Constipation Current Visit: Yes Status: Acute Assessment and plan: November 13. We will give glycerin suppository and Dulcolax tablets. Will start MOM scheduled every other day. November 17. Continue scheduled MOM every other day November 25. MOM dose was increased last night. Qualifiers: Constipation type: unspecified constipation type Qualified Code(s): K59.00 - Constipation, unspecified - Subjective Interval history: November 10. She has no new complaints and has less pain. November 13. She complains of constipation. She feels she is making satisfactory progress in therapy. November 17. She has no new complaints and feels she is making satisfactory progress. November 22. She has no new complaints November 25. She has no new complaints except constipation. - Constitutional Vitals: Temp Pulse Resp BP Pulse Ox 98.2 F 72 16 126/67 97 11/25/17 07:35 11/25/17 07:35 11/25/17 07:35 11/25/17 07:35 11/25/17 07:35 Exam: She is resting comfortably in bed and appears in no acute distress. Her affect is bright and cheerful. I reviewed her medications and lab results. Internal Medicine: Result - Labs CBC & Chem 7: 11/14/17 04:14 11/14/17 04:14 - ABG Interpretation ABG results: PT/INR, D-dimer PT 12.9 Seconds (9.4-12.1) H 11/08/17 05:11 - VTE Documentation of Mechanical Device: Graduated compression elastic hosiery Consult Discharge Plan - Plan Referrals: Gavin Mcdonald DO [Primary Care Provider] - 1 week
[2017-11-26] MEDS: traMADol 50 MG TABLET PO SCH ×4 (05:12→22:43)
[2017-11-26 06:37] LABS: Basophils % 0.3 %; Eosinophils # 0.2 K/mcL (0.0-0.6); Eosinophils % 2.4 %; Hematocrit 28.8 % (35.3-44.9); Hemoglobin 9.3 g/dL (11.5-15.4); Immature Granulocytes % 0.3 % (0-4); Lymphocytes % 28.1 %; Mean Corpuscular HGB Conc 32.3 g/dL (31.6-35.5); Mean Corpuscular Hemoglobin 27.8 pg (28.0-33.3); Mean Corpuscular Volume 86.2 fL (83.0-100.0); Mean Platelet Volume 9.4 fL (9.4-12.4); Monocytes # 0.6 K/mcL (0.0-1.3); Monocytes % 8.2 %; Neutrophils # 4.2 K/mcL (1.6-8.9); Platelet Count 190 K/mcL (140-400); Red Blood Count 3.34 M/mcL (3.82-4.97); Red Cell Distribution Width 14.2 % (11.5-14.5); Segmented Neutrophils % 60.7 %
[2017-11-26] MEDS: Ascorbic Acid 500 MG TABLET PO SCH (06:39)
[2017-11-26 06:56] LABS: BUN/Creatinine Ratio 27 (6-26); Blood Urea Nitrogen 27 mg/dL (7-20); Calcium 9.5 mg/dL (8.6-10.8); Carbon Dioxide 27 mEq/L (19-29); Chloride 104 mEq/L (98-109); Glucose 51 mg/dL (70-99); Osmolality,Calculated 296 (280-300); Potassium 4.2 mEq/L (3.5-4.5); Sodium 142 mEq/L (136-145); eGFR For African Americans > 60 (> 60); eGFR For Non-African Americans 55 (> 60)
[2017-11-26] MEDS: amLODIPine 5 MG TABLET PO SCH (08:19)
[2017-11-26] MEDS: Lisinopril 20 MG TABLET PO SCH (08:19)
[2017-11-26] MEDS: Famotidine 20 MG TABLET PO SCH (08:20)
[2017-11-26] MEDS: hydrOXYzine pamoate 25 MG CAPSULE PO SCH ×3 (08:20→22:42)
[2017-11-26] MEDS: Furosemide 20 MG TABLET PO SCH (08:20)
[2017-11-26] MEDS: Cholecalciferol (D-3) 1,000 UNIT TABLET PO SCH (08:20)
[2017-11-26] MEDS: Metoprolol XL (24 HR) Succ 50 MG TAB.ER.24H PO SCH (08:20)
[2017-11-26] MEDS: *HR* Glimepiride 2 MG TABLET PO SCH (08:23)
[2017-11-26] MEDS: *HR* HYDROcodone/Acet 7.5/325 mg TABLET PO PRN (22:44)
[2017-11-26] MEDS: MOM Conc 10 ML UD.LIQ PO SCH (22:44)
[2017-11-27] MEDS: traMADol 50 MG TABLET PO SCH ×4 (03:00→21:53)
[2017-11-27] MEDS: Ascorbic Acid 500 MG TABLET PO SCH (06:42)
[2017-11-27] MEDS: *HR* Glimepiride 2 MG TABLET PO SCH (08:42)
[2017-11-27] MEDS: hydrOXYzine pamoate 25 MG CAPSULE PO SCH ×3 (08:48→21:54)
[2017-11-27] MEDS: Metoprolol XL (24 HR) Succ 50 MG TAB.ER.24H PO SCH (08:49)
[2017-11-27] MEDS: amLODIPine 5 MG TABLET PO SCH (08:49)
[2017-11-27] MEDS: Famotidine 20 MG TABLET PO SCH (08:49)
[2017-11-27] MEDS: Furosemide 20 MG TABLET PO SCH (08:49)
[2017-11-27] MEDS: Cholecalciferol (D-3) 1,000 UNIT TABLET PO SCH (08:50)
[2017-11-27] MEDS: Lisinopril 20 MG TABLET PO SCH (08:50)
[2017-11-28] MEDS: traMADol 50 MG TABLET PO SCH ×5 (06:06→21:51)
[2017-11-28] MEDS: Ascorbic Acid 500 MG TABLET PO SCH (06:42)
[2017-11-28] MEDS: Metoprolol XL (24 HR) Succ 50 MG TAB.ER.24H PO SCH (08:21)
[2017-11-28] MEDS: Lisinopril 20 MG TABLET PO SCH (08:22)
[2017-11-28] MEDS: Cholecalciferol (D-3) 1,000 UNIT TABLET PO SCH (08:22)
[2017-11-28] MEDS: Famotidine 20 MG TABLET PO SCH (08:22)
[2017-11-28] MEDS: *HR* Glimepiride 2 MG TABLET PO SCH (08:22)
[2017-11-28] MEDS: Furosemide 20 MG TABLET PO SCH (08:22)
[2017-11-28] MEDS: hydrOXYzine pamoate 25 MG CAPSULE PO SCH ×3 (08:22→19:35)
[2017-11-28] MEDS: amLODIPine 5 MG TABLET PO SCH (08:23)
--- NOTE | 2017-11-28 16:00 | Internal Med Progress Note ---
Date of Encounter: 11/28/17 Time of Encounter: 15:54 - Assessment and plan (1) Status post reverse total shoulder replacement Current Visit: No Status: Acute Assessment and plan: November 10. Continue therapy intervention with analgesics. Qualifiers: Laterality: right Qualified Code(s): Z96.611 - Presence of right artificial shoulder joint (2) Left wrist fracture Current Visit: No Status: Acute Assessment and plan: November 10. Continue analgesics. Qualifiers: Encounter type: initial encounter Fracture type: closed Qualified Code(s) : S62.102A - Fracture of unspecified carpal bone, left wrist, initial encounter for closed fracture (3) Anemia Current Visit: No Status: Acute Assessment and plan: November 10. Anemia testing 10/30/2017 reviewed. Continue ferrous sulfate with vitamin C. November 13. Continue to monitor CBC. November 17. She does not know why she is taking aspirin. I will discontinue it. Continue ferrous sulfate with vitamin C. Continue to monitor CBC. November 22. We will check labs in a.m. November 28. Hemoglobin improved to 9.3. Continue present regimen Qualifiers: Anemia type: unspecified type Qualified Code(s): D64.9 - Anemia, unspecified (4) Hypertension Current Visit: No Status: Chronic Assessment and plan: November 10. Continue Norvasc Toprol and Lasix November 17. Blood pressure show significant fluctuation. Continue present regimen for now November 22. Continue Norvasc, Lasix, Zestril, and Toprol. Qualifiers: Hypertension type: essential hypertension Qualified Code(s): I10 - Essential (primary) hypertension (5) DM type 2 (diabetes mellitus, type 2) Current Visit: Yes Status: Acute Assessment and plan: November 10. Continue metformin and do Accu-Cheks with SSI. November 17. Blood sugars are higher than desirable. Will add glimepiride 1 mg daily. Continue Accu-Cheks with SSI. November 22. Blood sugars improved. Continue glimepiride and Accu-Cheks with SSI Qualifiers: Diabetes mellitus complication status: with unspecified complications Diabetes mellitus long chain beamer insulin use: without assisted use Qualified Code( s): E11.8 - Type 2 diabetes mellitus with unspecified complications (6) Constipation Current Visit: Yes Status: Acute Assessment and plan: November 13. We will give glycerin suppository and Dulcolax tablets. Will start MOM scheduled every other day. November 17. Continue scheduled MOM every other day November 25. MOM dose was increased last night. Qualifiers: Constipation type: unspecified constipation type Qualified Code(s): K59.00 - Constipation, unspecified - Subjective Interval history: November 10. She has no new complaints and has less pain. November 13. She complains of constipation. She feels she is making satisfactory progress in therapy. November 17. She has no new complaints and feels she is making satisfactory progress. November 22. She has no new complaints November 25. She has no new complaints except constipation. November 28. She has no new complaints. - Constitutional Vitals: Temp Pulse Resp BP Pulse Ox 98.6 F 73 18 125/77 96 11/28/17 07:22 11/28/17 07:22 11/28/17 07:22 11/28/17 07:22 11/28/17 07:22 Exam: She is resting comfortably in bed and appears in no acute distress. Her affect is bright and cheerful. She is wearing ENOC hose bilaterally. There is no extremity edema. I reviewed her medications and lab results. Internal Medicine: Result - Labs CBC & Chem 7: 11/26/17 06:00 11/26/17 06:00 - ABG Interpretation ABG results: PT/INR, D-dimer PT 12.9 Seconds (9.4-12.1) H 11/08/17 05:11 - VTE Documentation of Mechanical Device: Graduated compression elastic hosiery Consult Discharge Plan - Plan Referrals: Gavin Mcdonald DO [Primary Care Provider] - 1 week
[2017-11-28] MEDS: *HR* HYDROcodone/Acet 7.5/325 mg TABLET PO PRN (19:35)
[2017-11-28] MEDS: MOM Conc 10 ML UD.LIQ PO SCH (21:52)
[2017-11-29] MEDS: traMADol 50 MG TABLET PO SCH ×4 (03:00→21:00)
[2017-11-29] MEDS: Ascorbic Acid 500 MG TABLET PO SCH (06:44)
[2017-11-29] MEDS: Metoprolol XL (24 HR) Succ 50 MG TAB.ER.24H PO SCH (10:26)
[2017-11-29] MEDS: amLODIPine 5 MG TABLET PO SCH (10:28)
[2017-11-29] MEDS: Cholecalciferol (D-3) 1,000 UNIT TABLET PO SCH (10:28)
[2017-11-29] MEDS: Lisinopril 20 MG TABLET PO SCH (10:28)
[2017-11-29] MEDS: Furosemide 20 MG TABLET PO SCH (10:29)
[2017-11-29] MEDS: hydrOXYzine pamoate 25 MG CAPSULE PO SCH ×3 (10:29→21:13)
[2017-11-29] MEDS: *HR* Glimepiride 2 MG TABLET PO SCH (10:29)
[2017-11-29] MEDS: *HR* HYDROcodone/Acet 7.5/325 mg TABLET PO PRN ×2 (10:34→21:14)
[2017-11-29] MEDS: Famotidine 20 MG TABLET PO SCH (11:39)
[2017-11-29] MEDS: traZODone 50 MG TABLET PO PRN (21:13)
[2017-11-30] MEDS: traMADol 50 MG TABLET PO SCH ×4 (06:14→22:20)
[2017-11-30] MEDS: Ascorbic Acid 500 MG TABLET PO SCH (06:14)
[2017-11-30] MEDS: Cholecalciferol (D-3) 1,000 UNIT TABLET PO SCH (08:45)
[2017-11-30] MEDS: amLODIPine 5 MG TABLET PO SCH (08:45)
[2017-11-30] MEDS: Furosemide 20 MG TABLET PO SCH (08:45)
[2017-11-30] MEDS: hydrOXYzine pamoate 25 MG CAPSULE PO SCH ×3 (08:46→22:20)
[2017-11-30] MEDS: Metoprolol XL (24 HR) Succ 50 MG TAB.ER.24H PO SCH (08:46)
[2017-11-30] MEDS: Lisinopril 20 MG TABLET PO SCH (08:46)
[2017-11-30] MEDS: Famotidine 20 MG TABLET PO SCH (08:46)
[2017-11-30] MEDS: *HR* Glimepiride 2 MG TABLET PO SCH (08:46)
[2017-11-30] MEDS: *HR* HYDROcodone/Acet 7.5/325 mg TABLET PO PRN (08:47)
[2017-11-30] MEDS: MOM Conc 10 ML UD.LIQ PO SCH (22:20)
[2017-12-01] MEDS: traMADol 50 MG TABLET PO SCH ×4 (05:07→20:40)
[2017-12-01] MEDS: Ascorbic Acid 500 MG TABLET PO SCH (06:32)
[2017-12-01] MEDS: Metoprolol XL (24 HR) Succ 50 MG TAB.ER.24H PO SCH (08:27)
[2017-12-01] MEDS: Lisinopril 20 MG TABLET PO SCH (08:28)
[2017-12-01] MEDS: hydrOXYzine pamoate 25 MG CAPSULE PO SCH ×3 (08:28→20:40)
[2017-12-01] MEDS: *HR* Glimepiride 2 MG TABLET PO SCH (08:28)
[2017-12-01] MEDS: Famotidine 20 MG TABLET PO SCH (08:28)
[2017-12-01] MEDS: amLODIPine 5 MG TABLET PO SCH (08:29)
[2017-12-01] MEDS: Cholecalciferol (D-3) 1,000 UNIT TABLET PO SCH (08:29)
[2017-12-01] MEDS: Furosemide 20 MG TABLET PO SCH (08:29)
--- NOTE | 2017-12-01 12:18 | Internal Med Progress Note ---
Date of Encounter: 12/01/17 Time of Encounter: 12:10 - Assessment and plan (1) Status post reverse total shoulder replacement Current Visit: No Status: Acute Assessment and plan: November 10. Continue therapy intervention with analgesics. Qualifiers: Laterality: right Qualified Code(s): Z96.611 - Presence of right artificial shoulder joint (2) Left wrist fracture Current Visit: No Status: Acute Assessment and plan: November 10. Continue analgesics. Qualifiers: Encounter type: initial encounter Fracture type: closed Qualified Code(s) : S62.102A - Fracture of unspecified carpal bone, left wrist, initial encounter for closed fracture (3) Anemia Current Visit: No Status: Acute Assessment and plan: November 10. Anemia testing 10/30/2017 reviewed. Continue ferrous sulfate with vitamin C. November 13. Continue to monitor CBC. November 17. She does not know why she is taking aspirin. I will discontinue it. Continue ferrous sulfate with vitamin C. Continue to monitor CBC. November 22. We will check labs in a.m. November 28. Hemoglobin improved to 9.3. Continue present regimen Qualifiers: Anemia type: unspecified type Qualified Code(s): D64.9 - Anemia, unspecified (4) Hypertension Current Visit: No Status: Chronic Assessment and plan: November 10. Continue Norvasc Toprol and Lasix November 17. Blood pressure show significant fluctuation. Continue present regimen for now November 22. Continue Norvasc, Lasix, Zestril, and Toprol. Qualifiers: Hypertension type: essential hypertension Qualified Code(s): I10 - Essential (primary) hypertension (5) DM type 2 (diabetes mellitus, type 2) Current Visit: Yes Status: Acute Assessment and plan: November 10. Continue metformin and do Accu-Cheks with SSI. November 17. Blood sugars are higher than desirable. Will add glimepiride 1 mg daily. Continue Accu-Cheks with SSI. November 22. Blood sugars improved. 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 We will give glycerin suppository and Dulcolax tablets. Will start MOM scheduled every other day. November 17. Continue scheduled MOM every other day November 25. MOM dose was increased last night. December 01. Continue present dose MOM. Qualifiers: Constipation type: unspecified constipation type Qualified Code(s): K59.00 - Constipation, unspecified - Subjective Interval history: November 10. She has no new complaints and has less pain. November 13. She complains of constipation. She feels she is making satisfactory progress in therapy. November 17. She has no new complaints and feels she is making satisfactory progress. November 22. She has no new complaints November 25. She has no new complaints except constipation. November 28. She has no new complaints. December 01. She has no new complaints. - Constitutional Vitals: Temp Pulse Resp BP Pulse Ox 98.7 F 70 16 108/57 95 12/01/17 07:32 12/01/17 07:32 12/01/17 07:32 12/01/17 07:32 12/01/17 07:32 Exam: She is resting comfortably in a chair at bedside feeding herself lunch. Her affect is bright and cheerful. Reviewed her medications and lab results. Internal Medicine: Result - Labs CBC & Chem 7: 11/26/17 06:00 11/26/17 06:00 - ABG Interpretation ABG results: PT/INR, D-dimer PT 12.9 Seconds (9.4-12.1) H 11/08/17 05:11 - VTE Documentation of Mechanical Device: Graduated compression elastic hosiery Consult Discharge Plan - Plan Referrals: Gavin Mcdonald DO [Primary Care Provider] - 1 week
[2017-12-02] MEDS: Ascorbic Acid 500 MG TABLET PO SCH (06:49)
[2017-12-02] MEDS: traMADol 50 MG TABLET PO SCH ×4 (06:50→21:54)
[2017-12-02] MEDS: Lisinopril 20 MG TABLET PO SCH (07:34)
[2017-12-02] MEDS: Metoprolol XL (24 HR) Succ 50 MG TAB.ER.24H PO SCH (07:34)
[2017-12-02] MEDS: Famotidine 20 MG TABLET PO SCH (07:35)
[2017-12-02] MEDS: Cholecalciferol (D-3) 1,000 UNIT TABLET PO SCH (07:36)
[2017-12-02] MEDS: hydrOXYzine pamoate 25 MG CAPSULE PO SCH ×3 (07:36→21:57)
[2017-12-02] MEDS: amLODIPine 5 MG TABLET PO SCH (07:36)
[2017-12-02] MEDS: Furosemide 20 MG TABLET PO SCH (07:37)
[2017-12-02] MEDS: *HR* Glimepiride 2 MG TABLET PO SCH ×2 (07:49→12:29)
[2017-12-02] MEDS: *HR* HYDROcodone/Acet 7.5/325 mg TABLET PO PRN (19:58)
[2017-12-02] MEDS: tiZANidine 4 MG TABLET PO PRN (21:55)
[2017-12-02] MEDS: traZODone 50 MG TABLET PO PRN (21:55)
[2017-12-02] MEDS: MOM Conc 10 ML UD.LIQ PO SCH (23:07)
[2017-12-03] MEDS: traMADol 50 MG TABLET PO SCH ×4 (06:32→21:38)
[2017-12-03] MEDS: Ascorbic Acid 500 MG TABLET PO SCH (06:33)
[2017-12-03] MEDS: *HR* Glimepiride 2 MG TABLET PO SCH (08:18)
[2017-12-03] MEDS: Cholecalciferol (D-3) 1,000 UNIT TABLET PO SCH (08:18)
[2017-12-03] MEDS: Furosemide 20 MG TABLET PO SCH (08:18)
[2017-12-03] MEDS: Metoprolol XL (24 HR) Succ 50 MG TAB.ER.24H PO SCH (08:18)
[2017-12-03] MEDS: hydrOXYzine pamoate 25 MG CAPSULE PO SCH ×3 (08:18→21:38)
[2017-12-03] MEDS: Famotidine 20 MG TABLET PO SCH (08:18)
[2017-12-03] MEDS: amLODIPine 5 MG TABLET PO SCH (08:18)
[2017-12-03] MEDS: Lisinopril 20 MG TABLET PO SCH (08:18)
--- NOTE | 2017-12-03 15:22 | Internal Med Progress Note ---
Date of Encounter: 12/03/17 Time of Encounter: 15:15 - Assessment and plan (1) Status post reverse total shoulder replacement Current Visit: No Status: Acute Assessment and plan: November 10. Continue therapy intervention with analgesics. Qualifiers: Laterality: right Qualified Code(s): Z96.611 - Presence of right artificial shoulder joint (2) Left wrist fracture Current Visit: No Status: Acute Assessment and plan: November 10. Continue analgesics. Qualifiers: Encounter type: initial encounter Fracture type: closed Qualified Code(s) : S62.102A - Fracture of unspecified carpal bone, left wrist, initial encounter for closed fracture (3) Anemia Current Visit: No Status: Acute Assessment and plan: November 10. Anemia testing 10/30/2017 reviewed. Continue ferrous sulfate with vitamin C. November 13. Continue to monitor CBC. November 17. She does not know why she is taking aspirin. I will discontinue it. Continue ferrous sulfate with vitamin C. Continue to monitor CBC. November 22. We will check labs in a.m. November 28. Hemoglobin improved to 9.3. Continue present regimen December 03. Will check labs in a.m. Qualifiers: Anemia type: unspecified type Qualified Code(s): D64.9 - Anemia, unspecified (4) Hypertension Current Visit: No Status: Chronic Assessment and plan: November 10. Continue Norvasc Toprol and Lasix November 17. Blood pressure show significant fluctuation. Continue present regimen for now November 22. Continue Norvasc, Lasix, Zestril, and Toprol. Qualifiers: Hypertension type: essential hypertension Qualified Code(s): I10 - Essential (primary) hypertension (5) DM type 2 (diabetes mellitus, type 2) Current Visit: Yes Status: Acute Assessment and plan: November 10. Continue metformin and do Accu-Cheks with SSI. November 17. Blood sugars are higher than desirable. Will add glimepiride 1 mg daily. Continue Accu-Cheks with SSI. November 22. Blood sugars improved. Continue glimepiride and Accu-Cheks with SSI Qualifiers: Diabetes mellitus complication status: with unspecified complications Diabetes mellitus senior care insulin use: without senior care use Qualified Code( s): E11.8 - Type 2 diabetes mellitus with unspecified complications (6) Constipation Current Visit: Yes Status: Acute Assessment and plan: November 13. We will give glycerin suppository and Dulcolax tablets. Will start MOM scheduled every other day. November 17. Continue scheduled MOM every other day November 25. MOM dose was increased last night. December 01. Continue present dose MOM. Qualifiers: Constipation type: unspecified constipation type Qualified Code(s): K59.00 - Constipation, unspecified - Subjective Interval history: November 10. She has no new complaints and has less pain. November 13. She complains of constipation. She feels she is making satisfactory progress in therapy. November 17. She has no new complaints and feels she is making satisfactory progress. November 22. She has no new complaints November 25. She has no new complaints except constipation. November 28. She has no new complaints. December 01. She has no new complaints. December 03. She has no new complaints. - Constitutional Vitals: Temp Pulse Resp BP Pulse Ox 98.1 F 63 17 105/57 98 12/03/17 07:23 12/03/17 07:23 12/03/17 07:23 12/03/17 07:23 12/03/17 07:23 Exam: She is resting comfortably in bed and appears in no acute distress. Her affect is bright and cheerful. I reviewed her medications and lab results. Internal Medicine: Result - Labs CBC & Chem 7: 11/26/17 06:00 11/26/17 06:00 - ABG Interpretation ABG results: PT/INR, D-dimer PT 12.9 Seconds (9.4-12.1) H 11/08/17 05:11 - VTE Documentation of Mechanical Device: Graduated compression elastic hosiery Consult Discharge Plan - Plan Referrals: Gavin Mcdonald DO [Primary Care Provider] - 1 week
[2017-12-03] MEDS: *HR* HYDROcodone/Acet 7.5/325 mg TABLET PO PRN (23:34)
[2017-12-04 05:55] LABS: Basophils % 0.3 %; Eosinophils # 0.2 K/mcL (0.0-0.6); Eosinophils % 2.8 %; Hematocrit 27.7 % (35.3-44.9); Immature Granulocytes % 0.1 % (0-4); Lymphocytes # 2.1 K/mcL (0.6-4.6); Lymphocytes % 30.9 %; Mean Corpuscular HGB Conc 32.5 g/dL (31.6-35.5); Mean Corpuscular Hemoglobin 27.6 pg (28.0-33.3); Mean Platelet Volume 9.6 fL (9.4-12.4); Monocytes # 0.6 K/mcL (0.0-1.3); Monocytes % 8.2 %; Neutrophils # 3.9 K/mcL (1.6-8.9); Platelet Count 184 K/mcL (140-400); Red Blood Count 3.26 M/mcL (3.82-4.97); Red Cell Distribution Width 13.8 % (11.5-14.5); Segmented Neutrophils % 57.7 %
[2017-12-04 06:12] LABS: BUN/Creatinine Ratio 25 (6-26); Blood Urea Nitrogen 24 mg/dL (8-23); Calcium 9.3 mg/dL (8.6-10.3); Carbon Dioxide 27 mEq/L (23-29); Chloride 106 mEq/L (98-107); Glucose 153 mg/dL (70-105); Osmolality,Calculated 297 (280-300); Potassium 3.5 mEq/L (3.5-5.1); Sodium 140 mEq/L (136-145); eGFR For African Americans > 60 (> 60); eGFR For Non-African Americans 59 (> 60)
[2017-12-04] MEDS: traMADol 50 MG TABLET PO SCH ×3 (06:30→18:10)
[2017-12-04] MEDS: Ascorbic Acid 500 MG TABLET PO SCH (06:52)
[2017-12-04] MEDS: Cholecalciferol (D-3) 1,000 UNIT TABLET PO SCH (08:34)
[2017-12-04] MEDS: Metoprolol XL (24 HR) Succ 50 MG TAB.ER.24H PO SCH (08:34)
[2017-12-04] MEDS: Lisinopril 20 MG TABLET PO SCH (08:34)
[2017-12-04] MEDS: Famotidine 20 MG TABLET PO SCH (08:34)
[2017-12-04] MEDS: amLODIPine 5 MG TABLET PO SCH (08:34)
[2017-12-04] MEDS: *HR* Glimepiride 2 MG TABLET PO SCH (08:34)
[2017-12-04] MEDS: hydrOXYzine pamoate 25 MG CAPSULE PO SCH ×3 (08:34→19:41)
[2017-12-04] MEDS: Furosemide 20 MG TABLET PO SCH (08:35)
[2017-12-04] MEDS: *HR* HYDROcodone/Acet 7.5/325 mg TABLET PO PRN ×2 (12:35→19:42)
[2017-12-04] MEDS: MOM Conc 10 ML UD.LIQ PO SCH (19:51)
[2017-12-05] MEDS: traMADol 50 MG TABLET PO SCH ×5 (05:36→21:32)
[2017-12-05] MEDS: Ascorbic Acid 500 MG TABLET PO SCH (06:28)
[2017-12-05] MEDS: *HR* Glimepiride 2 MG TABLET PO SCH (08:53)
[2017-12-05] MEDS: Lisinopril 20 MG TABLET PO SCH (08:53)
[2017-12-05] MEDS: Famotidine 20 MG TABLET PO SCH (08:53)
[2017-12-05] MEDS: Furosemide 20 MG TABLET PO SCH (08:53)
[2017-12-05] MEDS: hydrOXYzine pamoate 25 MG CAPSULE PO SCH ×3 (08:53→19:53)
[2017-12-05] MEDS: Metoprolol XL (24 HR) Succ 50 MG TAB.ER.24H PO SCH (08:53)
[2017-12-05] MEDS: amLODIPine 5 MG TABLET PO SCH (08:53)
[2017-12-05] MEDS: Cholecalciferol (D-3) 1,000 UNIT TABLET PO SCH (08:54)
[2017-12-05] MEDS: *HR* HYDROcodone/Acet 7.5/325 mg TABLET PO PRN ×2 (17:35→22:49)
[2017-12-05] MEDS: traZODone 50 MG TABLET PO PRN (23:30)
[2017-12-06] MEDS: traMADol 50 MG TABLET PO SCH ×3 (04:25→14:02)
[2017-12-06] MEDS: Ascorbic Acid 500 MG TABLET PO SCH (06:05)
[2017-12-06] MEDS: amLODIPine 5 MG TABLET PO SCH (08:56)
[2017-12-06] MEDS: Cholecalciferol (D-3) 1,000 UNIT TABLET PO SCH (08:56)
[2017-12-06] MEDS: Metoprolol XL (24 HR) Succ 50 MG TAB.ER.24H PO SCH (08:56)
[2017-12-06] MEDS: Furosemide 20 MG TABLET PO SCH (08:57)
[2017-12-06] MEDS: Famotidine 20 MG TABLET PO SCH (08:57)
[2017-12-06] MEDS: *HR* Glimepiride 2 MG TABLET PO SCH (08:57)
[2017-12-06] MEDS: hydrOXYzine pamoate 25 MG CAPSULE PO SCH ×3 (08:58→21:22)
[2017-12-06] MEDS: Lisinopril 20 MG TABLET PO SCH (08:59)
[2017-12-06] MEDS: *HR* HYDROcodone/Acet 7.5/325 mg TABLET PO PRN (10:34)
[2017-12-06] MEDS: MOM Conc 10 ML UD.LIQ PO SCH (14:02)
--- NOTE | 2017-12-06 14:43 | Internal Med Progress Note ---
Date of Encounter: 12/06/17 Time of Encounter: 14:30 - Assessment and plan (1) Status post reverse total shoulder replacement Current Visit: No Status: Acute Assessment and plan: November 10. Continue therapy intervention with analgesics. Qualifiers: Laterality: right Qualified Code(s): Z96.611 - Presence of right artificial shoulder joint (2) Left wrist fracture Current Visit: No Status: Acute Assessment and plan: November 10. Continue analgesics. December 06. We will change tramadol to prn and continue present regimen otherwise Qualifiers: Encounter type: initial encounter Fracture type: closed Qualified Code(s) : S62.102A - Fracture of unspecified carpal bone, left wrist, initial encounter for closed fracture (3) Anemia Current Visit: No Status: Acute Assessment and plan: November 10. Anemia testing 10/30/2017 reviewed. Continue ferrous sulfate with vitamin C. November 13. Continue to monitor CBC. November 17. She does not know why she is taking aspirin. I will discontinue it. Continue ferrous sulfate with vitamin C. Continue to monitor CBC. November 22. We will check labs in a.m. November 28. Hemoglobin improved to 9.3. Continue present regimen December 03. Will check labs in a.m. December 06. Continue to monitor CBC periodically. Qualifiers: Anemia type: unspecified type Qualified Code(s): D64.9 - Anemia, unspecified (4) Hypertension Current Visit: No Status: Chronic Assessment and plan: November 10. Continue Norvasc Toprol and Lasix November 17. Blood pressure show significant fluctuation. Continue present regimen for now November 22. Continue Norvasc, Lasix, Zestril, and Toprol. Qualifiers: Hypertension type: essential hypertension Qualified Code(s): I10 - Essential (primary) hypertension (5) DM type 2 (diabetes mellitus, type 2) Current Visit: Yes Status: Acute Assessment and plan: November 10. Continue metformin and do Accu-Cheks with SSI. November 17. Blood sugars are higher than desirable. Will add glimepiride 1 mg daily. Continue Accu-Cheks with SSI. November 22. Blood sugars improved. 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 We will give glycerin suppository and Dulcolax tablets. Will start MOM scheduled every other day. November 17. Continue scheduled MOM every other day November 25. MOM dose was increased last night. December 01. Continue present dose MOM. December 06. Resolved. Continue present dose MOM scheduled. Qualifiers: Constipation type: unspecified constipation type Qualified Code(s): K59.00 - Constipation, unspecified - Subjective Interval history: November 10. She has no new complaints and has less pain. November 13. She complains of constipation. She feels she is making satisfactory progress in therapy. November 17. She has no new complaints and feels she is making satisfactory progress. November 22. She has no new complaints November 25. She has no new complaints except constipation. November 28. She has no new complaints. December 01. She has no new complaints. December 03. She has no new complaints. December 06. She has no new complaints. - Constitutional Vitals: Temp Pulse Resp BP Pulse Ox 98.2 F 69 16 127/68 98 12/06/17 06:56 12/06/17 06:56 12/06/17 06:56 12/06/17 06:56 12/06/17 06:56 Exam: She is resting comfortably in bed. Her right arm immobilizer as been removed. Her affect is bright and cheerful. I reviewed her medications and lab results. Internal Medicine: Result - Labs CBC & Chem 7: 12/04/17 05:42 12/04/17 05:42 - ABG Interpretation ABG results: PT/INR, D-dimer PT 12.9 Seconds (9.4-12.1) H 11/08/17 05:11 - VTE Documentation of Mechanical Device: Graduated compression elastic hosiery Consult Discharge Plan - Plan Referrals: Gavin Mcdonald DO [Primary Care Provider] - 1 week
[2017-12-07] MEDS: Ascorbic Acid 500 MG TABLET PO SCH (06:56)
[2017-12-07] MEDS: *HR* Glimepiride 2 MG TABLET PO SCH (08:37)
[2017-12-07] MEDS: Cholecalciferol (D-3) 1,000 UNIT TABLET PO SCH (08:38)
[2017-12-07] MEDS: amLODIPine 5 MG TABLET PO SCH (08:38)
[2017-12-07] MEDS: Furosemide 20 MG TABLET PO SCH (08:38)
[2017-12-07] MEDS: hydrOXYzine pamoate 25 MG CAPSULE PO SCH ×3 (08:38→21:51)
[2017-12-07] MEDS: Famotidine 20 MG TABLET PO SCH (08:38)
[2017-12-07] MEDS: Metoprolol XL (24 HR) Succ 50 MG TAB.ER.24H PO SCH (08:39)
[2017-12-07] MEDS: Lisinopril 20 MG TABLET PO SCH (08:39)
[2017-12-07] MEDS: traZODone 50 MG TABLET PO PRN (21:51)
[2017-12-07] MEDS: *HR* HYDROcodone/Acet 7.5/325 mg TABLET PO PRN (21:52)
[2017-12-08] MEDS: Ascorbic Acid 500 MG TABLET PO SCH (06:48)
[2017-12-08] MEDS: Lisinopril 20 MG TABLET PO SCH (08:18)
[2017-12-08] MEDS: Cholecalciferol (D-3) 1,000 UNIT TABLET PO SCH (08:18)
[2017-12-08] MEDS: *HR* Glimepiride 2 MG TABLET PO SCH (08:19)
[2017-12-08] MEDS: Famotidine 20 MG TABLET PO SCH (08:19)
[2017-12-08] MEDS: amLODIPine 5 MG TABLET PO SCH (08:19)
[2017-12-08] MEDS: Furosemide 20 MG TABLET PO SCH (08:19)
[2017-12-08] MEDS: hydrOXYzine pamoate 25 MG CAPSULE PO SCH ×3 (08:19→20:35)
[2017-12-08] MEDS: Metoprolol XL (24 HR) Succ 50 MG TAB.ER.24H PO SCH (08:19)
[2017-12-08] MEDS: MOM Conc 10 ML UD.LIQ PO SCH (17:39)
[2017-12-08] MEDS: traZODone 50 MG TABLET PO PRN (20:34)
[2017-12-08] MEDS: *HR* HYDROcodone/Acet 7.5/325 mg TABLET PO PRN (20:35)
[2017-12-09] MEDS: Ascorbic Acid 500 MG TABLET PO SCH (06:33)
[2017-12-09] MEDS: *HR* HYDROcodone/Acet 7.5/325 mg TABLET PO PRN ×2 (07:59→20:06)
[2017-12-09] MEDS: Metoprolol XL (24 HR) Succ 50 MG TAB.ER.24H PO SCH (08:00)
[2017-12-09] MEDS: Lisinopril 20 MG TABLET PO SCH (08:00)
[2017-12-09] MEDS: Furosemide 20 MG TABLET PO SCH (08:01)
[2017-12-09] MEDS: Famotidine 20 MG TABLET PO SCH (08:01)
[2017-12-09] MEDS: hydrOXYzine pamoate 25 MG CAPSULE PO SCH ×3 (08:01→20:06)
[2017-12-09] MEDS: Cholecalciferol (D-3) 1,000 UNIT TABLET PO SCH (08:01)
[2017-12-09] MEDS: *HR* Glimepiride 2 MG TABLET PO SCH (08:02)
[2017-12-09] MEDS: amLODIPine 5 MG TABLET PO SCH (08:02)
[2017-12-09] MEDS: *HR* Metformin 500 MG TABLET PO SCH (17:19)
[2017-12-09] MEDS: traMADol 50 MG TABLET PO PRN (21:58)
[2017-12-10] MEDS: *HR* HYDROcodone/Acet 7.5/325 mg TABLET PO PRN ×3 (00:11→21:55)
[2017-12-10] MEDS: Ascorbic Acid 500 MG TABLET PO SCH (06:21)
[2017-12-10] MEDS: *HR* Metformin 500 MG TABLET PO SCH ×2 (07:56→16:37)
[2017-12-10] MEDS: *HR* Glimepiride 2 MG TABLET PO SCH (07:57)
[2017-12-10] MEDS: Cholecalciferol (D-3) 1,000 UNIT TABLET PO SCH (07:57)
[2017-12-10] MEDS: Furosemide 20 MG TABLET PO SCH (07:57)
[2017-12-10] MEDS: Metoprolol XL (24 HR) Succ 50 MG TAB.ER.24H PO SCH (07:57)
[2017-12-10] MEDS: hydrOXYzine pamoate 25 MG CAPSULE PO SCH ×3 (07:57→21:56)
[2017-12-10] MEDS: Famotidine 20 MG TABLET PO SCH (07:57)
[2017-12-10] MEDS: Lisinopril 20 MG TABLET PO SCH (07:57)
[2017-12-10] MEDS: amLODIPine 5 MG TABLET PO SCH (07:57)
[2017-12-10] MEDS: MOM Conc 10 ML UD.LIQ PO SCH (07:58)
[2017-12-11] MEDS: Ascorbic Acid 500 MG TABLET PO SCH (06:18)
[2017-12-11] MEDS: *HR* Metformin 500 MG TABLET PO SCH ×2 (08:11→18:05)
[2017-12-11] MEDS: Furosemide 20 MG TABLET PO SCH (08:11)
[2017-12-11] MEDS: Famotidine 20 MG TABLET PO SCH (08:11)
[2017-12-11] MEDS: Metoprolol XL (24 HR) Succ 50 MG TAB.ER.24H PO SCH (08:12)
[2017-12-11] MEDS: amLODIPine 5 MG TABLET PO SCH (08:12)
[2017-12-11] MEDS: hydrOXYzine pamoate 25 MG CAPSULE PO SCH ×3 (08:12→20:50)
[2017-12-11] MEDS: Cholecalciferol (D-3) 1,000 UNIT TABLET PO SCH (08:12)
[2017-12-11] MEDS: *HR* Glimepiride 2 MG TABLET PO SCH (08:12)
[2017-12-11] MEDS: Lisinopril 20 MG TABLET PO SCH (08:12)
[2017-12-11] MEDS: traMADol 50 MG TABLET PO PRN ×2 (08:20→20:50)
[2017-12-11] MEDS: *HR* HYDROcodone/Acet 7.5/325 mg TABLET PO PRN (13:55)
[2017-12-12] MEDS: Ascorbic Acid 500 MG TABLET PO SCH (06:38)
[2017-12-12] MEDS: Furosemide 20 MG TABLET PO SCH (07:40)
[2017-12-12] MEDS: Cholecalciferol (D-3) 1,000 UNIT TABLET PO SCH (07:40)
[2017-12-12] MEDS: hydrOXYzine pamoate 25 MG CAPSULE PO SCH ×3 (07:40→21:05)
[2017-12-12] MEDS: traMADol 50 MG TABLET PO PRN ×2 (07:40→18:23)
[2017-12-12] MEDS: *HR* Metformin 500 MG TABLET PO SCH ×2 (07:41→18:24)
[2017-12-12] MEDS: amLODIPine 5 MG TABLET PO SCH (07:41)
[2017-12-12] MEDS: Lisinopril 20 MG TABLET PO SCH (07:41)
[2017-12-12] MEDS: Metoprolol XL (24 HR) Succ 50 MG TAB.ER.24H PO SCH (07:41)
[2017-12-12] MEDS: *HR* Glimepiride 2 MG TABLET PO SCH (07:41)
[2017-12-12] MEDS: MOM Conc 10 ML UD.LIQ PO SCH ×2 (07:42→18:05)
[2017-12-12] MEDS: Famotidine 20 MG TABLET PO SCH (07:42)
[2017-12-13] MEDS: Ascorbic Acid 500 MG TABLET PO SCH (06:16)
[2017-12-13] MEDS: Famotidine 20 MG TABLET PO SCH (07:52)
[2017-12-13] MEDS: Cholecalciferol (D-3) 1,000 UNIT TABLET PO SCH (07:53)
[2017-12-13] MEDS: amLODIPine 5 MG TABLET PO SCH (07:53)
[2017-12-13] MEDS: *HR* Metformin 500 MG TABLET PO SCH ×2 (07:53→18:35)
[2017-12-13] MEDS: Metoprolol XL (24 HR) Succ 50 MG TAB.ER.24H PO SCH (07:53)
[2017-12-13] MEDS: hydrOXYzine pamoate 25 MG CAPSULE PO SCH ×3 (07:53→20:01)
[2017-12-13] MEDS: *HR* HYDROcodone/Acet 7.5/325 mg TABLET PO PRN ×2 (07:53→20:04)
[2017-12-13] MEDS: *HR* Glimepiride 2 MG TABLET PO SCH (07:54)
[2017-12-13] MEDS: Lisinopril 20 MG TABLET PO SCH (07:54)
--- NOTE | 2017-12-13 11:15 | Internal Med Progress Note ---
Date of Encounter: 12/13/17 Time of Encounter: 11:05 - Assessment and plan (1) Status post reverse total shoulder replacement Current Visit: No Status: Acute Assessment and plan: November 10. Continue therapy intervention with analgesics. Qualifiers: Laterality: right Qualified Code(s): Z96.611 - Presence of right artificial shoulder joint (2) Left wrist fracture Current Visit: No Status: Acute Assessment and plan: November 10. Continue analgesics. December 06. We will change tramadol to prn and continue present regimen otherwise Qualifiers: Encounter type: initial encounter Fracture type: closed Qualified Code(s) : S62.102A - Fracture of unspecified carpal bone, left wrist, initial encounter for closed fracture (3) Anemia Current Visit: No Status: Acute Assessment and plan: November 10. Anemia testing 10/30/2017 reviewed. Continue ferrous sulfate with vitamin C. November 13. Continue to monitor CBC. November 17. She does not know why she is taking aspirin. I will discontinue it. Continue ferrous sulfate with vitamin C. Continue to monitor CBC. November 22. We will check labs in a.m. November 28. Hemoglobin improved to 9.3. Continue present regimen December 03. Will check labs in a.m. December 06. Continue to monitor CBC periodically. December 13. We will recheck labs in a.m. Qualifiers: Anemia type: unspecified type Qualified Code(s): D64.9 - Anemia, unspecified (4) Hypertension Current Visit: No Status: Chronic Assessment and plan: November 10. Continue Norvasc Toprol and Lasix November 17. Blood pressure show significant fluctuation. Continue present regimen for now November 22. Continue Norvasc, Lasix, Zestril, and Toprol. December 13. Continue above medications. Blood pressures are satisfactory. Qualifiers: Hypertension type: essential hypertension Qualified Code(s): I10 - Essential (primary) hypertension (5) DM type 2 (diabetes mellitus, type 2) Current Visit: Yes Status: Acute Assessment and plan: November 10. Continue metformin and do Accu-Cheks with SSI. November 17. Blood sugars are higher than desirable. Will add glimepiride 1 mg daily. Continue Accu-Cheks with SSI. November 22. Blood sugars improved. 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 We will give glycerin suppository and Dulcolax tablets. Will start MOM scheduled every other day. November 17. Continue scheduled MOM every other day November 25. MOM dose was increased last night. December 01. Continue present dose MOM. December 06. Resolved. Continue present dose MOM scheduled. December 13. She had diarrhea yesterday and MOM dose was reduced. Qualifiers: Constipation type: unspecified constipation type Qualified Code(s): K59.00 - Constipation, unspecified - Subjective Interval history: November 10. She has no new complaints and has less pain. November 13. She complains of constipation. She feels she is making satisfactory progress in therapy. November 17. She has no new complaints and feels she is making satisfactory progress. November 22. She has no new complaints November 25. She has no new complaints except constipation. November 28. She has no new complaints. December 01. She has no new complaints. December 03. She has no new complaints. December 06. She has no new complaints. December 13. She has no new complaints and feels better. She completed a home visit this morning with therapy. She anticipates discharge home 12/19/2017. - Constitutional Vitals: Temp Pulse Resp BP Pulse Ox 98.1 F 80 17 135/67 97 12/13/17 06:44 12/13/17 06:44 12/13/17 06:44 12/13/17 06:44 12/13/17 06:44 Exam: She is sitting in a chair at bedside resting comfortably. She does not appear to be in pain if she moves her right arm or left wrist. Reviewed her medications and lab results. Internal Medicine: Result - Labs CBC & Chem 7: 12/04/17 05:42 12/04/17 05:42 - ABG Interpretation ABG results: PT/INR, D-dimer PT 12.9 Seconds (9.4-12.1) H 11/08/17 05:11 - VTE Documentation of Mechanical Device: Graduated compression elastic hosiery Consult Discharge Plan - Plan Referrals: Gavin Mcdonald DO [Primary Care Provider] - 1 week
[2017-12-13] MEDS: Furosemide 20 MG TABLET PO SCH (15:21)
[2017-12-13] MEDS: traMADol 50 MG TABLET PO PRN (15:21)
[2017-12-14] MEDS: Ascorbic Acid 500 MG TABLET PO SCH (06:54)
[2017-12-14] MEDS: Lisinopril 20 MG TABLET PO SCH (09:49)
[2017-12-14] MEDS: amLODIPine 5 MG TABLET PO SCH (09:49)
[2017-12-14] MEDS: Metoprolol XL (24 HR) Succ 50 MG TAB.ER.24H PO SCH (09:49)
[2017-12-14] MEDS: *HR* Metformin 500 MG TABLET PO SCH ×2 (09:50→17:55)
[2017-12-14] MEDS: hydrOXYzine pamoate 25 MG CAPSULE PO SCH ×3 (09:50→20:01)
[2017-12-14] MEDS: *HR* Glimepiride 2 MG TABLET PO SCH (09:50)
[2017-12-14] MEDS: Cholecalciferol (D-3) 1,000 UNIT TABLET PO SCH (09:50)
[2017-12-14] MEDS: Famotidine 20 MG TABLET PO SCH (09:50)
[2017-12-14] MEDS: MOM Conc 10 ML UD.LIQ PO SCH (09:51)
[2017-12-14] MEDS: Furosemide 20 MG TABLET PO SCH (17:56)
[2017-12-14] MEDS: *HR* HYDROcodone/Acet 7.5/325 mg TABLET PO PRN (20:08)
[2017-12-14] MEDS: traZODone 50 MG TABLET PO PRN (21:43)
[2017-12-15] MEDS: Ascorbic Acid 500 MG TABLET PO SCH (06:39)
[2017-12-15] MEDS: *HR* Glimepiride 2 MG TABLET PO SCH (08:44)
[2017-12-15] MEDS: *HR* Metformin 500 MG TABLET PO SCH ×2 (08:44→16:55)
[2017-12-15] MEDS: Furosemide 20 MG TABLET PO SCH (08:44)
[2017-12-15] MEDS: Metoprolol XL (24 HR) Succ 50 MG TAB.ER.24H PO SCH (08:44)
[2017-12-15] MEDS: amLODIPine 5 MG TABLET PO SCH (08:44)
[2017-12-15] MEDS: Cholecalciferol (D-3) 1,000 UNIT TABLET PO SCH (08:45)
[2017-12-15] MEDS: Famotidine 20 MG TABLET PO SCH (08:45)
[2017-12-15] MEDS: hydrOXYzine pamoate 25 MG CAPSULE PO SCH ×3 (08:45→20:54)
[2017-12-15] MEDS: Lisinopril 20 MG TABLET PO SCH (08:45)
[2017-12-15] MEDS: *HR* HYDROcodone/Acet 7.5/325 mg TABLET PO PRN ×2 (14:04→20:52)
[2017-12-15] MEDS: traMADol 50 MG TABLET PO PRN (15:40)
[2017-12-15] MEDS: traZODone 50 MG TABLET PO PRN (21:01)
[2017-12-16] MEDS: Ascorbic Acid 500 MG TABLET PO SCH (06:42)
[2017-12-16] MEDS: MOM Conc 10 ML UD.LIQ PO SCH (10:03)
[2017-12-16] MEDS: *HR* Glimepiride 2 MG TABLET PO SCH (10:03)
[2017-12-16] MEDS: Famotidine 20 MG TABLET PO SCH (10:03)
[2017-12-16] MEDS: Cholecalciferol (D-3) 1,000 UNIT TABLET PO SCH (10:03)
[2017-12-16] MEDS: Furosemide 20 MG TABLET PO SCH (10:03)
[2017-12-16] MEDS: amLODIPine 5 MG TABLET PO SCH (10:04)
[2017-12-16] MEDS: Metoprolol XL (24 HR) Succ 50 MG TAB.ER.24H PO SCH (10:04)
[2017-12-16] MEDS: *HR* Metformin 500 MG TABLET PO SCH ×2 (10:04→16:52)
[2017-12-16] MEDS: Lisinopril 20 MG TABLET PO SCH (10:04)
--- NOTE | 2017-12-16 12:26 | Internal Med Progress Note ---
Date of Encounter: 12/16/17 Time of Encounter: 12:15 - Assessment and plan (1) Status post reverse total shoulder replacement Current Visit: No Status: Acute Assessment and plan: November 10. Continue therapy intervention with analgesics. Qualifiers: Laterality: right Qualified Code(s): Z96.611 - Presence of right artificial shoulder joint (2) Left wrist fracture Current Visit: No Status: Acute Assessment and plan: November 10. Continue analgesics. December 06. We will change tramadol to prn and continue present regimen otherwise Qualifiers: Encounter type: initial encounter Fracture type: closed Qualified Code(s) : S62.102A - Fracture of unspecified carpal bone, left wrist, initial encounter for closed fracture (3) Anemia Current Visit: No Status: Acute Assessment and plan: November 10. Anemia testing 10/30/2017 reviewed. Continue ferrous sulfate with vitamin C. November 13. Continue to monitor CBC. November 17. She does not know why she is taking aspirin. I will discontinue it. Continue ferrous sulfate with vitamin C. Continue to monitor CBC. November 22. We will check labs in a.m. November 28. Hemoglobin improved to 9.3. Continue present regimen December 03. Will check labs in a.m. December 06. Continue to monitor CBC periodically. December 13. We will recheck labs in a.m. December 16. We will recheck labs in a.m. Qualifiers: Anemia type: unspecified type Qualified Code(s): D64.9 - Anemia, unspecified (4) Hypertension Current Visit: No Status: Chronic Assessment and plan: November 10. Continue Norvasc Toprol and Lasix November 17. Blood pressure show significant fluctuation. Continue present regimen for now November 22. Continue Norvasc, Lasix, Zestril, and Toprol. December 13. Continue above medications. Blood pressures are satisfactory. Qualifiers: Hypertension type: essential hypertension Qualified Code(s): I10 - Essential (primary) hypertension (5) DM type 2 (diabetes mellitus, type 2) Current Visit: Yes Status: Acute Assessment and plan: November 10. Continue metformin and do Accu-Cheks with SSI. November 17. Blood sugars are higher than desirable. Will add glimepiride 1 mg daily. Continue Accu-Cheks with SSI. November 22. Blood sugars improved. Continue glimepiride and Accu-Cheks with SSI Qualifiers: Diabetes mellitus complication status: with unspecified complications Diabetes mellitus cooper helper insulin use: without cooper helper use Qualified Code( s): E11.8 - Type 2 diabetes mellitus with unspecified complications (6) Constipation Current Visit: Yes Status: Acute Assessment and plan: November 13. We will give glycerin suppository and Dulcolax tablets. Will start MOM scheduled every other day. November 17. Continue scheduled MOM every other day November 25. MOM dose was increased last night. December 01. Continue present dose MOM. December 06. Resolved. Continue present dose MOM scheduled. December 13. She had diarrhea yesterday and MOM dose was reduced. Qualifiers: Constipation type: unspecified constipation type Qualified Code(s): K59.00 - Constipation, unspecified - Subjective Interval history: November 10. She has no new complaints and has less pain. November 13. She complains of constipation. She feels she is making satisfactory progress in therapy. November 17. She has no new complaints and feels she is making satisfactory progress. November 22. She has no new complaints November 25. She has no new complaints except constipation. November 28. She has no new complaints. December 01. She has no new complaints. December 03. She has no new complaints. December 06. She has no new complaints. December 13. She has no new complaints and feels better. She completed a home visit this morning with therapy. She anticipates discharge home 12/19/2017. December 16. She has no new complaints. - Constitutional Vitals: Temp Pulse Resp BP Pulse Ox 97.7 F 73 16 138/84 98 12/16/17 06:46 12/16/17 06:46 12/16/17 06:46 12/16/17 06:46 12/16/17 06:46 Exam: She is sitting in a chair at bedside resting comfortably. Her affect is bright and cheerful. I reviewed her medications and lab results. Internal Medicine: Result - Labs CBC & Chem 7: 12/04/17 05:42 12/04/17 05:42 - ABG Interpretation ABG results: PT/INR, D-dimer PT 12.9 Seconds (9.4-12.1) H 11/08/17 05:11 - VTE Documentation of Mechanical Device: Graduated compression elastic hosiery Consult Discharge Plan - Plan Referrals: Gavin Mcdonald DO [Primary Care Provider] - 1 week
[2017-12-16] MEDS: hydrOXYzine pamoate 25 MG CAPSULE PO SCH ×3 (14:28→22:01)
[2017-12-16] MEDS: traZODone 50 MG TABLET PO PRN (22:00)
[2017-12-16] MEDS: *HR* HYDROcodone/Acet 7.5/325 mg TABLET PO PRN (22:01)
[2017-12-16] MEDS: Mag Hydrox/Al Hydrox/Simeth 30 ML UDC PO PRN (23:46)
[2017-12-17 05:58] LABS: Basophils % 0.3 %; Eosinophils # 0.1 K/mcL (0.0-0.6); Eosinophils % 1.5 %; Hematocrit 32.1 % (35.3-44.9); Hemoglobin 10.5 g/dL (11.5-15.4); Immature Granulocytes % 0.3 % (0-4); Lymphocytes # 2.1 K/mcL (0.6-4.6); Lymphocytes % 23.8 %; Mean Corpuscular HGB Conc 32.7 g/dL (31.6-35.5); Mean Corpuscular Hemoglobin 27.6 pg (28.0-33.3); Mean Corpuscular Volume 84.3 fL (83.0-100.0); Mean Platelet Volume 10.3 fL (9.4-12.4); Monocytes # 0.7 K/mcL (0.0-1.3); Monocytes % 7.9 %; Neutrophils # 5.9 K/mcL (1.6-8.9); Platelet Count 184 K/mcL (140-400); Red Blood Count 3.81 M/mcL (3.82-4.97); Red Cell Distribution Width 13.3 % (11.5-14.5); Segmented Neutrophils % 66.2 %
[2017-12-17 06:21] LABS: BUN/Creatinine Ratio 29 (6-26); Blood Urea Nitrogen 31 mg/dL (8-23); Calcium 9.6 mg/dL (8.6-10.3); Carbon Dioxide 28 mEq/L (23-29); Chloride 101 mEq/L (98-107); Glucose 95 mg/dL (70-105); Osmolality,Calculated 292 (280-300); Potassium 3.9 mEq/L (3.5-5.1); Sodium 138 mEq/L (136-145); eGFR For African Americans > 60 (> 60); eGFR For Non-African Americans 52 (> 60)
[2017-12-17] MEDS: Ascorbic Acid 500 MG TABLET PO SCH (06:43)
[2017-12-17] MEDS: Mag Hydrox/Al Hydrox/Simeth 30 ML UDC PO PRN (07:43)
[2017-12-17] MEDS: *HR* Glimepiride 2 MG TABLET PO SCH (07:44)
[2017-12-17] MEDS: *HR* Metformin 500 MG TABLET PO SCH ×2 (07:45→16:17)
[2017-12-17] MEDS: Metoprolol XL (24 HR) Succ 50 MG TAB.ER.24H PO SCH (09:49)
[2017-12-17] MEDS: Furosemide 20 MG TABLET PO SCH (09:49)
[2017-12-17] MEDS: amLODIPine 5 MG TABLET PO SCH (09:49)
[2017-12-17] MEDS: Famotidine 20 MG TABLET PO SCH (09:49)
[2017-12-17] MEDS: Lisinopril 20 MG TABLET PO SCH (09:50)
[2017-12-17] MEDS: hydrOXYzine pamoate 25 MG CAPSULE PO SCH ×3 (09:50→20:41)
[2017-12-17] MEDS: Cholecalciferol (D-3) 1,000 UNIT TABLET PO SCH (09:50)
[2017-12-17] MEDS: traMADol 50 MG TABLET PO PRN (20:48)
[2017-12-17] MEDS: traZODone 50 MG TABLET PO PRN (20:49)
[2017-12-18] MEDS: Ascorbic Acid 500 MG TABLET PO SCH (06:28)
[2017-12-18] MEDS: *HR* Glimepiride 2 MG TABLET PO SCH (08:50)
[2017-12-18] MEDS: *HR* Metformin 500 MG TABLET PO SCH ×2 (08:50→16:20)
[2017-12-18] MEDS: amLODIPine 5 MG TABLET PO SCH (08:51)
[2017-12-18] MEDS: hydrOXYzine pamoate 25 MG CAPSULE PO SCH ×3 (08:51→20:55)
[2017-12-18] MEDS: Furosemide 20 MG TABLET PO SCH (08:51)
[2017-12-18] MEDS: Metoprolol XL (24 HR) Succ 50 MG TAB.ER.24H PO SCH (08:52)
[2017-12-18] MEDS: Cholecalciferol (D-3) 1,000 UNIT TABLET PO SCH (08:52)
[2017-12-18] MEDS: Famotidine 20 MG TABLET PO SCH (08:52)
[2017-12-18] MEDS: Lisinopril 20 MG TABLET PO SCH (08:53)
[2017-12-18] MEDS: MOM Conc 10 ML UD.LIQ PO SCH (13:59)
--- NOTE | 2017-12-18 14:40 | Internal Med Progress Note ---
Date of Encounter: 12/18/17 Time of Encounter: 14:30 - Assessment and plan (1) Status post reverse total shoulder replacement Current Visit: No Status: Acute Assessment and plan: November 10. Continue therapy intervention with analgesics. Qualifiers: Laterality: right Qualified Code(s): Z96.611 - Presence of right artificial shoulder joint (2) Left wrist fracture Current Visit: No Status: Acute Assessment and plan: November 10. Continue analgesics. December 06. We will change tramadol to prn and continue present regimen otherwise Qualifiers: Encounter type: initial encounter Fracture type: closed Qualified Code(s) : S62.102A - Fracture of unspecified carpal bone, left wrist, initial encounter for closed fracture (3) Anemia Current Visit: No Status: Acute Assessment and plan: November 10. Anemia testing 10/30/2017 reviewed. Continue ferrous sulfate with vitamin C. November 13. Continue to monitor CBC. November 17. She does not know why she is taking aspirin. I will discontinue it. Continue ferrous sulfate with vitamin C. Continue to monitor CBC. November 22. We will check labs in a.m. November 28. Hemoglobin improved to 9.3. Continue present regimen December 03. Will check labs in a.m. December 06. Continue to monitor CBC periodically. December 13. We will recheck labs in a.m. December 16. We will recheck labs in a.m. December 18. Hemoglobin improved to 10.5. Continue present regimen Qualifiers: Anemia type: unspecified type Qualified Code(s): D64.9 - Anemia, unspecified (4) Hypertension Current Visit: No Status: Chronic Assessment and plan: November 10. Continue Norvasc Toprol and Lasix November 17. Blood pressure show significant fluctuation. Continue present regimen for now November 22. Continue Norvasc, Lasix, Zestril, and Toprol. December 13. Continue above medications. Blood pressures are satisfactory. Qualifiers: Hypertension type: essential hypertension Qualified Code(s): I10 - Essential (primary) hypertension (5) DM type 2 (diabetes mellitus, type 2) Current Visit: Yes Status: Acute Assessment and plan: November 10. Continue metformin and do Accu-Cheks with SSI. November 17. Blood sugars are higher than desirable. Will add glimepiride 1 mg daily. Continue Accu-Cheks with SSI. November 22. Blood sugars improved. Continue glimepiride and Accu-Cheks with SSI Qualifiers: Diabetes mellitus complication status: with unspecified complications Diabetes mellitus coil assembler insulin use: without skilled nursing use Qualified Code( s): E11.8 - Type 2 diabetes mellitus with unspecified complications (6) Constipation Current Visit: Yes Status: Acute Assessment and plan: November 13. We will give glycerin suppository and Dulcolax tablets. Will start MOM scheduled every other day. November 17. Continue scheduled MOM every other day November 25. MOM dose was increased last night. December 01. Continue present dose MOM. December 06. Resolved. Continue present dose MOM scheduled. December 13. She had diarrhea yesterday and MOM dose was reduced. Qualifiers: Constipation type: unspecified constipation type Qualified Code(s): K59.00 - Constipation, unspecified - Subjective Interval history: November 10. She has no new complaints and has less pain. November 13. She complains of constipation. She feels she is making satisfactory progress in therapy. November 17. She has no new complaints and feels she is making satisfactory progress. November 22. She has no new complaints November 25. She has no new complaints except constipation. November 28. She has no new complaints. December 01. She has no new complaints. December 03. She has no new complaints. December 06. She has no new complaints. December 13. She has no new complaints and feels better. She completed a home visit this morning with therapy. She anticipates discharge home 12/19/2017. December 16. She has no new complaints. December 18. She has no new complaints and is anticipating discharge home tomorrow. - Constitutional Vitals: Temp Pulse Resp BP Pulse Ox 97.6 F 90 18 124/64 98 12/18/17 08:48 12/18/17 08:48 12/18/17 08:48 12/18/17 08:48 12/18/17 08:48 Exam: She is resting comfortably on the side of the bed and appears in no acute distress. Affect is bright and cheerful. She is not wearing any orthopedic devices now. I reviewed her medications and lab results. Internal Medicine: Result - Labs CBC & Chem 7: 12/17/17 05:30 12/17/17 05:30 - ABG Interpretation ABG results: PT/INR, D-dimer PT 12.9 Seconds (9.4-12.1) H 11/08/17 05:11 - VTE Documentation of Mechanical Device: Graduated compression elastic hosiery Consult Discharge Plan - Plan Referrals: Gavin Mcdonald DO [Primary Care Provider] - 1 week
[2017-12-18] MEDS: *HR* HYDROcodone/Acet 7.5/325 mg TABLET PO PRN (20:56)
[2017-12-18] MEDS: traZODone 50 MG TABLET PO PRN (20:56)
[2017-12-19] MEDS: Ascorbic Acid 500 MG TABLET PO SCH (06:00)
[2017-12-19] MEDS: traMADol 50 MG TABLET PO PRN ×2 (06:00→22:06)
[2017-12-19] MEDS: *HR* Glimepiride 2 MG TABLET PO SCH (09:58)
[2017-12-19] MEDS: *HR* HYDROcodone/Acet 7.5/325 mg TABLET PO PRN (09:58)
[2017-12-19] MEDS: Furosemide 20 MG TABLET PO SCH (09:59)
[2017-12-19] MEDS: Lisinopril 20 MG TABLET PO SCH (09:59)
[2017-12-19] MEDS: amLODIPine 5 MG TABLET PO SCH (09:59)
[2017-12-19] MEDS: Metoprolol XL (24 HR) Succ 50 MG TAB.ER.24H PO SCH (09:59)
[2017-12-19] MEDS: *HR* Metformin 500 MG TABLET PO SCH ×2 (10:00→17:38)
[2017-12-19] MEDS: hydrOXYzine pamoate 25 MG CAPSULE PO SCH ×3 (10:00→20:35)
[2017-12-19] MEDS: Cholecalciferol (D-3) 1,000 UNIT TABLET PO SCH (10:00)
[2017-12-19] MEDS: Famotidine 20 MG TABLET PO SCH (10:00)
[2017-12-19] MEDS: traZODone 50 MG TABLET PO PRN (20:35)
[2017-12-20] MEDS: Ascorbic Acid 500 MG TABLET PO SCH (05:32)
[2017-12-20] MEDS: Metoprolol XL (24 HR) Succ 50 MG TAB.ER.24H PO SCH (07:56)
[2017-12-20] MEDS: Lisinopril 20 MG TABLET PO SCH (07:56)
[2017-12-20] MEDS: Cholecalciferol (D-3) 1,000 UNIT TABLET PO SCH (07:56)
[2017-12-20] MEDS: *HR* Glimepiride 2 MG TABLET PO SCH (07:56)
[2017-12-20] MEDS: *HR* Metformin 500 MG TABLET PO SCH ×2 (07:57→16:58)
[2017-12-20] MEDS: amLODIPine 5 MG TABLET PO SCH (07:57)
[2017-12-20] MEDS: hydrOXYzine pamoate 25 MG CAPSULE PO SCH ×3 (07:57→21:27)
[2017-12-20] MEDS: Famotidine 20 MG TABLET PO SCH (07:57)
[2017-12-20] MEDS: Furosemide 20 MG TABLET PO SCH (07:57)
[2017-12-20] MEDS: *HR* HYDROcodone/Acet 7.5/325 mg TABLET PO PRN ×2 (08:07→21:27)
[2017-12-20] MEDS: MOM Conc 10 ML UD.LIQ PO SCH (12:33)
[2017-12-20] MEDS: traZODone 50 MG TABLET PO PRN (21:26)
[2017-12-21] MEDS: Ascorbic Acid 500 MG TABLET PO SCH (06:08)
[2017-12-21] MEDS: traMADol 50 MG TABLET PO PRN (06:09)
[2017-12-21] MEDS: Cholecalciferol (D-3) 1,000 UNIT TABLET PO SCH (09:58)
[2017-12-21] MEDS: *HR* Glimepiride 2 MG TABLET PO SCH (09:59)
[2017-12-21] MEDS: Metoprolol XL (24 HR) Succ 50 MG TAB.ER.24H PO SCH (10:00)
[2017-12-21] MEDS: Famotidine 20 MG TABLET PO SCH (10:00)
[2017-12-21] MEDS: amLODIPine 5 MG TABLET PO SCH (10:01)
[2017-12-21] MEDS: Furosemide 20 MG TABLET PO SCH (10:01)
[2017-12-21] MEDS: hydrOXYzine pamoate 25 MG CAPSULE PO SCH ×3 (10:02→21:19)
[2017-12-21] MEDS: *HR* Metformin 500 MG TABLET PO SCH ×2 (10:02→17:28)
[2017-12-21] MEDS: Lisinopril 20 MG TABLET PO SCH (10:02)
[2017-12-21] MEDS: *HR* HYDROcodone/Acet 7.5/325 mg TABLET PO PRN ×2 (10:07→21:20)
[2017-12-21] MEDS: traZODone 50 MG TABLET PO PRN (21:19)
[2017-12-22] MEDS: Ascorbic Acid 500 MG TABLET PO SCH (06:54)
[2017-12-22] MEDS: *HR* Glimepiride 2 MG TABLET PO SCH (09:26)
[2017-12-22] MEDS: *HR* Metformin 500 MG TABLET PO SCH ×2 (09:26→18:15)
[2017-12-22] MEDS: hydrOXYzine pamoate 25 MG CAPSULE PO SCH ×3 (09:27→19:59)
[2017-12-22] MEDS: Cholecalciferol (D-3) 1,000 UNIT TABLET PO SCH (09:27)
[2017-12-22] MEDS: Famotidine 20 MG TABLET PO SCH (09:27)
[2017-12-22] MEDS: amLODIPine 5 MG TABLET PO SCH (09:27)
[2017-12-22] MEDS: Metoprolol XL (24 HR) Succ 50 MG TAB.ER.24H PO SCH (09:27)
[2017-12-22] MEDS: MOM Conc 10 ML UD.LIQ PO SCH (09:28)
[2017-12-22] MEDS: Lisinopril 20 MG TABLET PO SCH (09:28)
[2017-12-22] MEDS: Furosemide 20 MG TABLET PO SCH (09:28)
--- NOTE | 2017-12-22 14:27 | Internal Med Progress Note ---
Date of Encounter: 12/22/17 Time of Encounter: 14:20 - Assessment and plan (1) Status post reverse total shoulder replacement Current Visit: No Status: Acute Assessment and plan: November 10. Continue therapy intervention with analgesics. Qualifiers: Laterality: right Qualified Code(s): Z96.611 - Presence of right artificial shoulder joint (2) Left wrist fracture Current Visit: No Status: Acute Assessment and plan: November 10. Continue analgesics. December 06. We will change tramadol to prn and continue present regimen otherwise Qualifiers: Encounter type: initial encounter Fracture type: closed Qualified Code(s) : S62.102A - Fracture of unspecified carpal bone, left wrist, initial encounter for closed fracture (3) Anemia Current Visit: No Status: Acute Assessment and plan: November 10. Anemia testing 10/30/2017 reviewed. Continue ferrous sulfate with vitamin C. November 13. Continue to monitor CBC. November 17. She does not know why she is taking aspirin. I will discontinue it. Continue ferrous sulfate with vitamin C. Continue to monitor CBC. November 22. We will check labs in a.m. November 28. Hemoglobin improved to 9.3. Continue present regimen December 03. Will check labs in a.m. December 06. Continue to monitor CBC periodically. December 13. We will recheck labs in a.m. December 16. We will recheck labs in a.m. December 18. Hemoglobin improved to 10.5. Continue present regimen December 22. Will check CBC and other labs in a.m. Qualifiers: Anemia type: unspecified type Qualified Code(s): D64.9 - Anemia, unspecified (4) Hypertension Current Visit: No Status: Chronic Assessment and plan: November 10. Continue Norvasc Toprol and Lasix November 17. Blood pressure show significant fluctuation. Continue present regimen for now November 22. Continue Norvasc, Lasix, Zestril, and Toprol. December 13. Continue above medications. Blood pressures are satisfactory. Qualifiers: Hypertension type: essential hypertension Qualified Code(s): I10 - Essential (primary) hypertension (5) DM type 2 (diabetes mellitus, type 2) Current Visit: Yes Status: Acute Assessment and plan: November 10. Continue metformin and do Accu-Cheks with SSI. November 17. Blood sugars are higher than desirable. Will add glimepiride 1 mg daily. Continue Accu-Cheks with SSI. November 22. Blood sugars improved. Continue glimepiride and Accu-Cheks with SSI Qualifiers: Diabetes mellitus complication status: with unspecified complications Diabetes mellitus care home insulin use: without terminal worker use Qualified Code( s): E11.8 - Type 2 diabetes mellitus with unspecified complications (6) Constipation Current Visit: Yes Status: Acute Assessment and plan: November 13. We will give glycerin suppository and Dulcolax tablets. Will start MOM scheduled every other day. November 17. Continue scheduled MOM every other day November 25. MOM dose was increased last night. December 01. Continue present dose MOM. December 06. Resolved. Continue present dose MOM scheduled. December 13. She had diarrhea yesterday and MOM dose was reduced. Qualifiers: Constipation type: unspecified constipation type Qualified Code(s): K59.00 - Constipation, unspecified - Subjective Interval history: November 10. She has no new complaints and has less pain. November 13. She complains of constipation. She feels she is making satisfactory progress in therapy. November 17. She has no new complaints and feels she is making satisfactory progress. November 22. She has no new complaints November 25. She has no new complaints except constipation. November 28. She has no new complaints. December 01. She has no new complaints. December 03. She has no new complaints. December 06. She has no new complaints. December 13. She has no new complaints and feels better. She completed a home visit this morning with therapy. She anticipates discharge home 12/19/2017. December 16. She has no new complaints. December 18. She has no new complaints and is anticipating discharge home tomorrow. December 22. She has no new complaints. She states she feels "under the weather". She reports her bowel movements are acceptable. - Constitutional Vitals: Temp Pulse Resp BP Pulse Ox 98.1 F 73 18 116/58 96 12/21/17 20:49 12/21/17 20:49 12/21/17 20:49 12/21/17 20:49 12/21/17 20:49 Exam: She is resting comfortably in bed. She feels she is continuing to make progress in therapy. Her affect is bright and cheerful. I reviewed her medications and lab results. Internal Medicine: Result - Labs CBC & Chem 7: 12/17/17 05:30 12/17/17 05:30 - ABG Interpretation ABG results: PT/INR, D-dimer PT 12.9 Seconds (9.4-12.1) H 11/08/17 05:11 - VTE Documentation of Mechanical Device: Graduated compression elastic hosiery Consult Discharge Plan - Plan Referrals: Gavin Mcdonald DO [Primary Care Provider] - 1 week
[2017-12-22] MEDS: *HR* HYDROcodone/Acet 7.5/325 mg TABLET PO PRN (20:02)
[2017-12-22] MEDS: traMADol 50 MG TABLET PO PRN (23:08)
[2017-12-22] MEDS: traZODone 50 MG TABLET PO PRN (23:08)
[2017-12-23] MEDS: Metoprolol XL (24 HR) Succ 50 MG TAB.ER.24H PO SCH (08:16)
[2017-12-23] MEDS: hydrOXYzine pamoate 25 MG CAPSULE PO SCH ×3 (08:17→22:13)
[2017-12-23] MEDS: Ascorbic Acid 500 MG TABLET PO SCH (08:17)
[2017-12-23] MEDS: *HR* Metformin 500 MG TABLET PO SCH ×2 (08:17→17:20)
[2017-12-23] MEDS: Cholecalciferol (D-3) 1,000 UNIT TABLET PO SCH (08:18)
[2017-12-23] MEDS: amLODIPine 5 MG TABLET PO SCH (08:18)
[2017-12-23] MEDS: *HR* Glimepiride 2 MG TABLET PO SCH ×2 (08:18→12:22)
[2017-12-23] MEDS: Furosemide 20 MG TABLET PO SCH (08:18)
[2017-12-23] MEDS: Famotidine 20 MG TABLET PO SCH (08:18)
[2017-12-23] MEDS: Lisinopril 20 MG TABLET PO SCH (08:18)
[2017-12-23] MEDS: *HR* HYDROcodone/Acet 7.5/325 mg TABLET PO PRN ×2 (08:18→22:13)
[2017-12-23] MEDS: traZODone 50 MG TABLET PO PRN (22:13)
[2017-12-24] MEDS: Ascorbic Acid 500 MG TABLET PO SCH (06:51)
[2017-12-24] MEDS: *HR* Metformin 500 MG TABLET PO SCH ×2 (08:14→16:40)
[2017-12-24] MEDS: Famotidine 20 MG TABLET PO SCH (08:15)
[2017-12-24] MEDS: traMADol 50 MG TABLET PO PRN (08:15)
[2017-12-24] MEDS: Furosemide 20 MG TABLET PO SCH (08:15)
[2017-12-24] MEDS: hydrOXYzine pamoate 25 MG CAPSULE PO SCH ×3 (08:15→21:30)
[2017-12-24] MEDS: Lisinopril 20 MG TABLET PO SCH (08:15)
[2017-12-24] MEDS: Metoprolol XL (24 HR) Succ 50 MG TAB.ER.24H PO SCH (08:15)
[2017-12-24] MEDS: amLODIPine 5 MG TABLET PO SCH (08:15)
[2017-12-24] MEDS: *HR* Glimepiride 2 MG TABLET PO SCH (08:15)
[2017-12-24] MEDS: Cholecalciferol (D-3) 1,000 UNIT TABLET PO SCH (08:17)
[2017-12-24] MEDS: MOM Conc 10 ML UD.LIQ PO SCH (11:29)
[2017-12-24] MEDS: *HR* HYDROcodone/Acet 7.5/325 mg TABLET PO PRN ×2 (16:41→21:28)
[2017-12-24] MEDS: traZODone 50 MG TABLET PO PRN (21:27)
[2017-12-25 06:09] LABS: Basophils % 0.6 %; Eosinophils # 0.2 K/mcL (0.0-0.6); Eosinophils % 2.2 %; Hemoglobin 9.5 g/dL (11.5-15.4); Immature Granulocytes % 0.1 % (0-4); Lymphocytes # 2.6 K/mcL (0.6-4.6); Mean Corpuscular HGB Conc 31.7 g/dL (31.6-35.5); Mean Corpuscular Hemoglobin 27.4 pg (28.0-33.3); Mean Corpuscular Volume 86.5 fL (83.0-100.0); Mean Platelet Volume 9.9 fL (9.4-12.4); Monocytes # 0.6 K/mcL (0.0-1.3); Monocytes % 8.3 %; Neutrophils # 3.8 K/mcL (1.6-8.9); Platelet Count 179 K/mcL (140-400); Red Blood Count 3.47 M/mcL (3.82-4.97); Red Cell Distribution Width 13.3 % (11.5-14.5); Segmented Neutrophils % 52.8 %
[2017-12-25] MEDS: Ascorbic Acid 500 MG TABLET PO SCH (06:51)
[2017-12-25 07:05] LABS: Magnesium 1.1 mg/dL (1.6-2.6)
[2017-12-25] MEDS ORDERED: MOM Conc 10 ML UD.LIQ PO PRN (11:06)
--- NOTE | 2017-12-25 11:10 | Internal Med Progress Note ---
Date of Encounter: 12/25/17 Time of Encounter: 11:00 - Assessment and plan (1) Status post reverse total shoulder replacement Current Visit: No Status: Acute Assessment and plan: November 10. Continue therapy intervention with analgesics. Qualifiers: Laterality: right Qualified Code(s): Z96.611 - Presence of right artificial shoulder joint (2) Left wrist fracture Current Visit: No Status: Acute Assessment and plan: November 10. Continue analgesics. December 06. We will change tramadol to prn and continue present regimen otherwise Qualifiers: Encounter type: initial encounter Fracture type: closed Qualified Code(s) : S62.102A - Fracture of unspecified carpal bone, left wrist, initial encounter for closed fracture (3) Anemia Current Visit: No Status: Acute Assessment and plan: November 10. Anemia testing 10/30/2017 reviewed. Continue ferrous sulfate with vitamin C. November 13. Continue to monitor CBC. November 17. She does not know why she is taking aspirin. I will discontinue it. Continue ferrous sulfate with vitamin C. Continue to monitor CBC. November 22. We will check labs in a.m. November 28. Hemoglobin improved to 9.3. Continue present regimen December 03. Will check labs in a.m. December 06. Continue to monitor CBC periodically. December 13. We will recheck labs in a.m. December 16. We will recheck labs in a.m. December 18. Hemoglobin improved to 10.5. Continue present regimen December 22. Will check CBC and other labs in a.m. December 25. Hemoglobin unimproved at 9.5. We will discontinue Pepcid to increase absorption of ferrous sulfate and vitamin C. Qualifiers: Anemia type: unspecified type Qualified Code(s): D64.9 - Anemia, unspecified (4) Hypertension Current Visit: No Status: Chronic Assessment and plan: November 10. Continue Norvasc Toprol and Lasix November 17. Blood pressure show significant fluctuation. Continue present regimen for now November 22. Continue Norvasc, Lasix, Zestril, and Toprol. December 13. Continue above medications. Blood pressures are satisfactory. December 25. We will decrease Norvasc to 5 mg daily because of edema. We will discontinue Lasix and Zestril because of azotemia. Continue Toprol and start Bumex 0.5 mg every other day. Qualifiers: Hypertension type: essential hypertension Qualified Code(s): I10 - Essential (primary) hypertension (5) DM type 2 (diabetes mellitus, type 2) Current Visit: Yes Status: Acute Assessment and plan: November 10. Continue metformin and do Accu-Cheks with SSI. November 17. Blood sugars are higher than desirable. Will add glimepiride 1 mg daily. Continue Accu-Cheks with SSI. November 22. Blood sugars improved. Continue glimepiride and Accu-Cheks with SSI Qualifiers: Diabetes mellitus complication status: with unspecified complications Diabetes mellitus termite renewal inspector insulin use: without prison use Qualified Code( s): E11.8 - Type 2 diabetes mellitus with unspecified complications (6) Constipation Current Visit: Yes Status: Acute Assessment and plan: November 13. We will give glycerin suppository and Dulcolax tablets. Will start MOM scheduled every other day. November 17. Continue scheduled MOM every other day November 25. MOM dose was increased last night. December 01. Continue present dose MOM. December 06. Resolved. Continue present dose MOM scheduled. December 13. She had diarrhea yesterday and MOM dose was reduced. December 25. She reports diarrhea now. Will change MOM to prn Qualifiers: Constipation type: unspecified constipation type Qualified Code(s): K59.00 - Constipation, unspecified (7) Hypomagnesemia Current Visit: No Status: Acute Assessment and plan: December 25. Will start magnesium oxide 400 mg twice a day. - Subjective Interval history: November 10. She has no new complaints and has less pain. November 13. She complains of constipation. She feels she is making satisfactory progress in therapy. November 17. She has no new complaints and feels she is making satisfactory progress. November 22. She has no new complaints November 25. She has no new complaints except constipation. November 28. She has no new complaints. December 01. She has no new complaints. December 03. She has no new complaints. December 06. She has no new complaints. December 13. She has no new complaints and feels better. She completed a home visit this morning with therapy. She anticipates discharge home 12/19/2017. December 16. She has no new complaints. December 18. She has no new complaints and is anticipating discharge home tomorrow. December 22. She has no new complaints. She states she feels "under the weather". She reports her bowel movements are acceptable. December 25. She has no new complaints except diarrhea. - Constitutional Vitals: Temp Pulse Resp BP Pulse Ox 98.6 F 69 12 90/52 97 12/24/17 19:00 12/25/17 07:09 12/25/17 07:09 12/25/17 07:09 12/25/17 07:09 Exam: He is sitting in a chair at bedside working with a therapist. Her affect is bright and cheerful. I reviewed her medications and lab results. Internal Medicine: Result - Labs CBC & Chem 7: 12/25/17 05:51 12/25/17 05:51 Labs: Short CBC 12/25/17 Range/Units 05:51 WBC 7.3 (4.3-11.1) K/mcL Hgb 9.5 L (11.5-15.4) g/dL Hct 30.0 L (35.3-44.9) % Plt Count 179 (140-400) K/mcL Neutrophils # 3.8 (1.6-8.9) K/mcL BMP 12/25/17 05:51 Sodium 139 Potassium 4.0 Chloride 103 Carbon Dioxide 26 BUN 37 H Creatinine 1.81 H Glucose 76 Calcium 9.0 - ABG Interpretation ABG results: PT/INR, D-dimer PT 12.9 Seconds (9.4-12.1) H 11/08/17 05:11 - VTE Documentation of Mechanical Device: Graduated compression elastic hosiery Consult Discharge Plan - Plan Referrals: Gavin Mcdonald DO [Primary Care Provider] - 1 week
[2017-12-25] MEDS: Metoprolol XL (24 HR) Succ 50 MG TAB.ER.24H PO SCH (11:20)
[2017-12-25] MEDS: Cholecalciferol (D-3) 1,000 UNIT TABLET PO SCH (11:21)
[2017-12-25] MEDS: *HR* Metformin 500 MG TABLET PO SCH ×2 (11:21→16:01)
[2017-12-25] MEDS: *HR* Glimepiride 2 MG TABLET PO SCH (11:22)
[2017-12-25] MEDS: *HR* HYDROcodone/Acet 7.5/325 mg TABLET PO PRN ×3 (11:24→20:31)
[2017-12-25] MEDS: hydrOXYzine pamoate 25 MG CAPSULE PO SCH ×3 (11:29→20:32)
[2017-12-25] MEDS: amLODIPine 5 MG TABLET PO SCH ×2 (11:29→14:38)
[2017-12-25] MEDS: Bumetanide 1 MG TABLET PO SCH (11:32)
[2017-12-25] MEDS: Magnesium Oxide 400 MG TABLET PO SCH ×2 (11:32→20:28)
[2017-12-25] MEDS: Furosemide 20 MG TABLET PO SCH (14:38)
[2017-12-25] MEDS: Lisinopril 20 MG TABLET PO SCH (14:39)
[2017-12-25] MEDS: Famotidine 20 MG TABLET PO SCH (14:39)
[2017-12-26] MEDS: Ascorbic Acid 500 MG TABLET PO SCH (05:46)
[2017-12-26] MEDS: Metoprolol XL (24 HR) Succ 50 MG TAB.ER.24H PO SCH (08:45)
[2017-12-26] MEDS: hydrOXYzine pamoate 25 MG CAPSULE PO SCH ×3 (08:45→20:19)
[2017-12-26] MEDS: Cholecalciferol (D-3) 1,000 UNIT TABLET PO SCH (08:45)
[2017-12-26] MEDS: Lactobacillus 1 EACH CAP.SPRINK PO SCH (08:45)
[2017-12-26] MEDS: *HR* Glimepiride 2 MG TABLET PO SCH (08:46)
[2017-12-26] MEDS: *HR* Metformin 500 MG TABLET PO SCH (08:47)
[2017-12-26] MEDS: amLODIPine 5 MG TABLET PO SCH (08:47)
[2017-12-26] MEDS: Magnesium Oxide 400 MG TABLET PO SCH ×2 (08:47→20:19)
[2017-12-26] MEDS: traMADol 50 MG TABLET PO PRN ×2 (12:37→20:19)
[2017-12-26] MEDS: traZODone 50 MG TABLET PO PRN (20:19)
[2017-12-27] MEDS: Ascorbic Acid 500 MG TABLET PO SCH (05:50)
[2017-12-27] MEDS: *HR* Glimepiride 2 MG TABLET PO SCH (07:44)
[2017-12-27] MEDS: Metoprolol XL (24 HR) Succ 50 MG TAB.ER.24H PO SCH (07:45)
[2017-12-27] MEDS: Lactobacillus 1 EACH CAP.SPRINK PO SCH (07:45)
[2017-12-27] MEDS: amLODIPine 5 MG TABLET PO SCH (07:46)
[2017-12-27] MEDS: Cholecalciferol (D-3) 1,000 UNIT TABLET PO SCH (07:46)
[2017-12-27] MEDS: Magnesium Oxide 400 MG TABLET PO SCH ×2 (07:46→21:00)
[2017-12-27] MEDS: hydrOXYzine pamoate 25 MG CAPSULE PO SCH ×3 (07:47→21:01)
[2017-12-27] MEDS: *HR* HYDROcodone/Acet 7.5/325 mg TABLET PO PRN ×2 (07:47→21:01)
[2017-12-27] MEDS: Bumetanide 1 MG TABLET PO SCH (12:56)
[2017-12-27] MEDS: traZODone 50 MG TABLET PO PRN (21:01)
[2017-12-28] MEDS: Ascorbic Acid 500 MG TABLET PO SCH (06:51)
[2017-12-28] MEDS: Lactobacillus 1 EACH CAP.SPRINK PO SCH (07:41)
[2017-12-28] MEDS: Cholecalciferol (D-3) 1,000 UNIT TABLET PO SCH (07:41)
[2017-12-28] MEDS: amLODIPine 5 MG TABLET PO SCH (07:41)
[2017-12-28] MEDS: Magnesium Oxide 400 MG TABLET PO SCH ×2 (07:42→22:03)
[2017-12-28] MEDS: Metoprolol XL (24 HR) Succ 50 MG TAB.ER.24H PO SCH (07:42)
[2017-12-28] MEDS: hydrOXYzine pamoate 25 MG CAPSULE PO SCH ×3 (07:42→22:01)
[2017-12-28] MEDS: *HR* HYDROcodone/Acet 7.5/325 mg TABLET PO PRN ×3 (07:42→22:03)
[2017-12-28] MEDS: *HR* Glimepiride 2 MG TABLET PO SCH ×2 (07:43→14:41)
[2017-12-28] MEDS: tiZANidine 4 MG TABLET PO PRN ×2 (14:31→22:08)
[2017-12-28] MEDS ORDERED: Methyl Salicylate/Menthol 28 GM TUBE TP PRN (18:55)
[2017-12-28] MEDS: traZODone 50 MG TABLET PO PRN (22:01)
[2017-12-29] MEDS: Ascorbic Acid 500 MG TABLET PO SCH (06:47)
[2017-12-29] MEDS: *HR* Glimepiride 2 MG TABLET PO SCH ×2 (08:42→12:29)
[2017-12-29] MEDS: Metoprolol XL (24 HR) Succ 50 MG TAB.ER.24H PO SCH (08:42)
[2017-12-29] MEDS: hydrOXYzine pamoate 25 MG CAPSULE PO SCH ×3 (08:43→21:02)
[2017-12-29] MEDS: *HR* HYDROcodone/Acet 7.5/325 mg TABLET PO PRN ×2 (08:43→21:02)
[2017-12-29] MEDS: Lactobacillus 1 EACH CAP.SPRINK PO SCH (08:43)
[2017-12-29] MEDS: amLODIPine 5 MG TABLET PO SCH (08:43)
[2017-12-29] MEDS: Magnesium Oxide 400 MG TABLET PO SCH ×2 (08:43→21:03)
[2017-12-29] MEDS: Cholecalciferol (D-3) 1,000 UNIT TABLET PO SCH (08:43)
[2017-12-29] MEDS: Bumetanide 1 MG TABLET PO SCH (08:55)
--- NOTE | 2017-12-29 17:04 | Internal Med Progress Note ---
Date of Encounter: 12/29/17 Time of Encounter: 16:55 - Assessment and plan (1) Status post reverse total shoulder replacement Current Visit: No Status: Acute Assessment and plan: November 10. Continue therapy intervention with analgesics. Qualifiers: Laterality: right Qualified Code(s): Z96.611 - Presence of right artificial shoulder joint (2) Left wrist fracture Current Visit: No Status: Acute Assessment and plan: November 10. Continue analgesics. December 06. We will change tramadol to prn and continue present regimen otherwise Qualifiers: Encounter type: initial encounter Fracture type: closed Qualified Code(s) : S62.102A - Fracture of unspecified carpal bone, left wrist, initial encounter for closed fracture (3) Anemia Current Visit: No Status: Acute Assessment and plan: November 10. Anemia testing 10/30/2017 reviewed. Continue ferrous sulfate with vitamin C. November 13. Continue to monitor CBC. November 17. She does not know why she is taking aspirin. I will discontinue it. Continue ferrous sulfate with vitamin C. Continue to monitor CBC. November 22. We will check labs in a.m. November 28. Hemoglobin improved to 9.3. Continue present regimen December 03. Will check labs in a.m. December 06. Continue to monitor CBC periodically. December 13. We will recheck labs in a.m. December 16. We will recheck labs in a.m. December 18. Hemoglobin improved to 10.5. Continue present regimen December 22. Will check CBC and other labs in a.m. December 25. Hemoglobin unimproved at 9.5. We will discontinue Pepcid to increase absorption of ferrous sulfate and vitamin C. December 29. Recheck labs in a.m. Qualifiers: Anemia type: unspecified type Qualified Code(s): D64.9 - Anemia, unspecified (4) Hypertension Current Visit: No Status: Chronic Assessment and plan: November 10. Continue Norvasc Toprol and Lasix November 17. Blood pressure show significant fluctuation. Continue present regimen for now November 22. Continue Norvasc, Lasix, Zestril, and Toprol. December 13. Continue above medications. Blood pressures are satisfactory. December 25. We will decrease Norvasc to 5 mg daily because of edema. We will discontinue Lasix and Zestril because of azotemia. Continue Toprol and start Bumex 0.5 mg every other day. December 29. Blood pressure remained satisfactory on reduced Norvasc. Continue Toprol and Bumex. Recheck labs in a.m. Qualifiers: Hypertension type: essential hypertension Qualified Code(s): I10 - Essential (primary) hypertension (5) DM type 2 (diabetes mellitus, type 2) Current Visit: Yes Status: Acute Assessment and plan: November 10. Continue metformin and do Accu-Cheks with SSI. November 17. Blood sugars are higher than desirable. Will add glimepiride 1 mg daily. Continue Accu-Cheks with SSI. November 22. Blood sugars improved. Continue glimepiride and Accu-Cheks with SSI Qualifiers: Diabetes mellitus complication status: with unspecified complications Diabetes mellitus usp insulin use: without usp use Qualified Code( s): E11.8 - Type 2 diabetes mellitus with unspecified complications (6) Constipation Current Visit: Yes Status: Acute Assessment and plan: November 13. We will give glycerin suppository and Dulcolax tablets. Will start MOM scheduled every other day. November 17. Continue scheduled MOM every other day November 25. MOM dose was increased last night. December 01. Continue present dose MOM. December 06. Resolved. Continue present dose MOM scheduled. December 13. She had diarrhea yesterday and MOM dose was reduced. December 25. She reports diarrhea now. Will change MOM to prn Qualifiers: Constipation type: unspecified constipation type Qualified Code(s): K59.00 - Constipation, unspecified (7) Hypomagnesemia Current Visit: No Status: Acute Assessment and plan: December 25. Will start magnesium oxide 400 mg twice a day. December 29. Recheck labs in a.m. - Subjective Interval history: November 10. She has no new complaints and has less pain. November 13. She complains of constipation. She feels she is making satisfactory progress in therapy. November 17. She has no new complaints and feels she is making satisfactory progress. November 22. She has no new complaints November 25. She has no new complaints except constipation. November 28. She has no new complaints. December 01. She has no new complaints. December 03. She has no new complaints. December 06. She has no new complaints. December 13. She has no new complaints and feels better. She completed a home visit this morning with therapy. She anticipates discharge home 12/19/2017. December 16. She has no new complaints. December 18. She has no new complaints and is anticipating discharge home tomorrow. December 22. She has no new complaints. She states she feels "under the weather". She reports her bowel movements are acceptable. December 25. She has no new complaints except diarrhea. December 29. She has no new complaints. She is anticipating discharge home this week on Saturday or . - Constitutional Vitals: Temp Pulse Resp BP Pulse Ox 99.2 F 72 18 121/62 95 12/29/17 07:30 12/29/17 07:30 12/29/17 07:30 12/29/17 07:30 12/29/17 07:30 Exam: She is sitting in a chair bedside resting comfortably. Her affect is bright and cheerful. Extremities show no pitting edema now. I reviewed her medications and lab results. Internal Medicine: Result - Labs CBC & Chem 7: 12/25/17 05:51 12/25/17 05:51 - ABG Interpretation ABG results: PT/INR, D-dimer PT 12.9 Seconds (9.4-12.1) H 11/08/17 05:11 - VTE Documentation of Mechanical Device: Graduated compression elastic hosiery Consult Discharge Plan - Plan Referrals: Gavin Mcdonald DO [Primary Care Provider] - 1 week
[2017-12-29] MEDS: tiZANidine 4 MG TABLET PO PRN (21:03)
[2017-12-29] MEDS: traZODone 50 MG TABLET PO PRN (21:03)
[2017-12-30 05:32] LABS: Basophils % 0.3 %; Eosinophils # 0.2 K/mcL (0.0-0.6); Eosinophils % 2.3 %; Hematocrit 30.5 % (35.3-44.9); Immature Granulocytes % 0.1 % (0-4); Lymphocytes # 2.5 K/mcL (0.6-4.6); Lymphocytes % 32.9 %; Mean Corpuscular HGB Conc 32.8 g/dL (31.6-35.5); Mean Corpuscular Hemoglobin 27.9 pg (28.0-33.3); Mean Platelet Volume 10.6 fL (9.4-12.4); Monocytes # 0.6 K/mcL (0.0-1.3); Monocytes % 7.5 %; Neutrophils # 4.2 K/mcL (1.6-8.9); Platelet Count 193 K/mcL (140-400); Red Blood Count 3.59 M/mcL (3.82-4.97); Red Cell Distribution Width 12.8 % (11.5-14.5); Segmented Neutrophils % 56.9 %
[2017-12-30 05:52] LABS: Magnesium 1.5 mg/dL (1.6-2.6); Potassium 3.7 mEq/L (3.5-5.1)
[2017-12-30] MEDS: Ascorbic Acid 500 MG TABLET PO SCH (06:43)
[2017-12-30] MEDS: *HR* HYDROcodone/Acet 7.5/325 mg TABLET PO PRN ×3 (06:43→23:26)
[2017-12-30] MEDS: Lactobacillus 1 EACH CAP.SPRINK PO SCH (08:30)
[2017-12-30] MEDS: hydrOXYzine pamoate 25 MG CAPSULE PO SCH ×3 (08:30→22:00)
[2017-12-30] MEDS: amLODIPine 5 MG TABLET PO SCH (08:30)
[2017-12-30] MEDS: Metoprolol XL (24 HR) Succ 50 MG TAB.ER.24H PO SCH (08:31)
[2017-12-30] MEDS: *HR* Glimepiride 2 MG TABLET PO SCH (08:31)
[2017-12-30] MEDS: Cholecalciferol (D-3) 1,000 UNIT TABLET PO SCH (08:32)
[2017-12-30] MEDS: Magnesium Oxide 400 MG TABLET PO SCH ×2 (08:32→21:45)
[2017-12-30] MEDS: tiZANidine 4 MG TABLET PO PRN ×2 (14:32→23:27)
[2017-12-30] MEDS: *HR* Metformin 500 MG TABLET PO SCH (18:07)
[2017-12-30] MEDS: traZODone 50 MG TABLET PO PRN (21:46)
[2017-12-31] MEDS: *HR* Metformin 500 MG TABLET PO SCH ×2 (10:16→18:04)
[2017-12-31] MEDS: Ascorbic Acid 500 MG TABLET PO SCH (10:16)
[2017-12-31] MEDS: *HR* Glimepiride 2 MG TABLET PO SCH (10:16)
[2017-12-31] MEDS: Bumetanide 1 MG TABLET PO SCH (10:16)
[2017-12-31] MEDS: hydrOXYzine pamoate 25 MG CAPSULE PO SCH ×3 (10:17→20:41)
[2017-12-31] MEDS: Lactobacillus 1 EACH CAP.SPRINK PO SCH (10:17)
[2017-12-31] MEDS: Cholecalciferol (D-3) 1,000 UNIT TABLET PO SCH (10:17)
[2017-12-31] MEDS: tiZANidine 4 MG TABLET PO PRN ×2 (10:17→20:42)
[2017-12-31] MEDS: Metoprolol XL (24 HR) Succ 50 MG TAB.ER.24H PO SCH (10:18)
[2017-12-31] MEDS: Magnesium Oxide 400 MG TABLET PO SCH ×2 (10:19→20:41)
[2017-12-31] MEDS: amLODIPine 5 MG TABLET PO SCH (10:19)
[2017-12-31] MEDS: *HR* HYDROcodone/Acet 7.5/325 mg TABLET PO PRN ×2 (10:19→20:42)
[2018-01-01] MEDS: Ascorbic Acid 500 MG TABLET PO SCH (06:15)
[2018-01-01 07:02] VITALS: BP 173/76
[2018-01-01] MEDS: Cholecalciferol (D-3) 1,000 UNIT TABLET PO SCH (08:09)
[2018-01-01] MEDS: *HR* Metformin 500 MG TABLET PO SCH (08:09)
[2018-01-01] MEDS: Magnesium Oxide 400 MG TABLET PO SCH (08:09)
[2018-01-01] MEDS: hydrOXYzine pamoate 25 MG CAPSULE PO SCH (08:10)
[2018-01-01] MEDS: amLODIPine 5 MG TABLET PO SCH (08:10)
[2018-01-01] MEDS: Lactobacillus 1 EACH CAP.SPRINK PO SCH (08:10)
[2018-01-01] MEDS: *HR* Glimepiride 2 MG TABLET PO SCH (08:10)
[2018-01-01] MEDS: Metoprolol XL (24 HR) Succ 50 MG TAB.ER.24H PO SCH (08:10)
--- NOTE | 2018-01-01 11:05 | Discharge Summary ---
Date of Encounter: 01/01/18 Time of Encounter: 10:45 - Discharge Diagnosis (1) Status post reverse total shoulder replacement Priority: Primary Status: Acute Qualifiers: Laterality: right Qualified Code(s): Z96.611 - Presence of right artificial shoulder joint (2) Left wrist fracture Priority: Secondary Status: Acute Qualifiers: Encounter type: initial encounter Fracture type: closed Qualified Code(s) : S62.102A - Fracture of unspecified carpal bone, left wrist, initial encounter for closed fracture (3) Anemia Priority: Secondary Status: Acute Qualifiers: Anemia type: unspecified type Qualified Code(s): D64.9 - Anemia, unspecified (4) Hypertension Priority: Secondary Status: Chronic Qualifiers: Hypertension type: essential hypertension Qualified Code(s): I10 - Essential (primary) hypertension (5) DM type 2 (diabetes mellitus, type 2) Priority: Secondary Status: Chronic Qualifiers: Diabetes mellitus complication status: with unspecified complications Diabetes mellitus entrance guard insulin use: without snf use Qualified Code( s): E11.8 - Type 2 diabetes mellitus with unspecified complications (6) Constipation Priority: Secondary Status: Resolved Qualifiers: Constipation type: unspecified constipation type Qualified Code(s): K59.00 - Constipation, unspecified (7) Hypomagnesemia Priority: Secondary Status: Acute Hospital course: Ms. Bahena is a 67 year old female who underwent reverse right total shoulder placement by Dr. Knapp at [facility] following a fall with fracture several days earlier. Her postop course was remarkable and she returned to [facility] for swing bed admission for ongoing therapy. She had sustained the fractures from fall at home approximately 3 weeks ago. She had left wrist ORIF plate and screw repair by Dr. Sepulveda 11/01/2017 for a distal radius intra-articular fracture with 3 distal fragments. Her musk skeletal history is otherwise significant for a knee scope in 1985. She has DJD and fibromyalgia but denies gout or other bone joint or muscle disorders. Initial orders were written by the discharging physicians at [facility]. I saw her on November 08 and performed the swing bed history and physical. She had physical therapy and occupational therapy interventions. She made satisfactory progress and was stable for discharge home with home health services on January 01. Blood pressure medications were adjusted and her pressure remained satisfactory. Avapro was discontinued because of azotemia. Creatinine was stable at 1.14 with estimated GFR of 48 of 12/30/2017. Magnesium level improved to 1.5 with magnesium oxide. She will continue for 7 additional days at discharge. Her PCP can monitor labs. She was started on ferrous sulfate with vitamin C and hemoglobin was stable at 10.0 on 12/30/2017. She will follow with her PCP Dr. Mcdonald within 1 week. - Time Spent with Patient Total time spent providing and/or coordinating discharge services: - Discharge Medications Prescriptions: amLODIPine [Norvasc] 5 mg PO DAILY #30 tablet Ascorbic Acid [Vitamin C] 500 mg PO DAILY@0630 #30 tablet Bumetanide [Bumex] 0.5 mg PO Q48H #10 tablet Ferrous Sulfate 325 mg PO DAILY@0630 #30 tablet Glimepiride [Amaryl] 1 mg PO 0800 #15 tablet Magnesium Oxide [Mag-Ox] 400 mg PO BID #14 tablet Tizanidine HCl [Zanaflex] 2 mg PO TID PRN #30 capsule PRN Reason: as needed Home Medications: Amitriptyline [Elavil] 20 mg PO HS 10/21/17 [History] Ergocalciferol (VITAMIN D2) [Vitamin D2] 2,000 unit PO DAILY 10/21/17 [History] Metformin HCl [Glucophage] 1,000 mg PO BID 10/21/17 [History] Ranitidine HCl [Zantac] 150 mg PO BID 10/21/17 [History] Sertraline [Zoloft] 100 mg PO DAILY 10/21/17 [History] Tramadol HCl [Ultram] 50 mg PO Q8H 10/21/17 [History] Metoprolol Succinate 200 mg PO DAILY 30 Days tab.er.24h 10/31/17 [Rx] Atorvastatin [Lipitor] 10 mg PO HS 11/01/17 [History] HYDROcodone/Acet 7.5/325 mg [[place] 7.5-325 mg] 1 tab PO Q4H PRN #42 tablet 11/01 [Rx] hydrOXYzine HCl [Hydroxyzine HCl] 25 mg PO TID 11/06/17 [History] Ascorbic Acid [Vitamin C] 500 mg PO DAILY@0630 #30 tablet 01/01/18 [Rx] Bumetanide [Bumex] 0.5 mg PO Q48H #10 tablet 01/01/18 [Rx] Ferrous Sulfate 325 mg PO DAILY@0630 #30 tablet 01/01/18 [Rx] Glimepiride [Amaryl] 1 mg PO 0800 #15 tablet 01/01/18 [Rx] Magnesium Oxide [Mag-Ox] 400 mg PO BID #14 tablet 01/01/18 [Rx] Methyl Salicylate/Menthol [Bengay] 1 appl TP BID PRN tube 01/01/18 [Rx] Tizanidine HCl [Zanaflex] 2 mg PO TID PRN #30 capsule 01/01/18 [Rx] amLODIPine [Norvasc] 5 mg PO DAILY #30 tablet 01/01/18 [Rx] Allergies/Adverse Reactions: 3 Allergy/AdvReac Type Severity Reaction Status Date / Time duloxetine [From Cymbalta] Allergy Agitated Verified 11/06/17 13:37 Paroxetine [From Paxil] Allergy Agitated Verified 11/06/17 13:37 acetaminophen [From Percocet] AdvReac Shakiness Verified 11/06/17 13:37 Oxycodone [From Percocet] AdvReac Shakiness Verified 11/06/17 13:37 Date of admission: 11/07/17 16:00 Primary care physician: Gavin Mcdonald DO Consults: 11/07/17 16:40 Consult to Occupational Therapy [CONS] Routine Comment: eval, develop, and implement plan of care Reason for Consult: eval, develop, and implement plan of care Consult to Physical Therapy [CONS] Routine Comment: eval, develop, and implement plan of care Reason for Consult: eval, develop, and implement plan of care No ABD/ADD/EXT x6 weeks PROM 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, 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 Consult to Grinder Set Up Operator Universal [CONS] Routine Reason for SW Consult: discharge planning - Constitutional Vitals: Temp Pulse Resp BP Pulse Ox 97.6 F 79 16 173/76 99 01/01/18 06:59 01/01/18 06:59 01/01/18 06:59 01/01/18 06:59 01/01/18 06:59 - Patient Status Disposition: Home Health Service Functional capacity at discharge: uses cane/walker Overall status at discharge: patient is progressing back to baseline - Discharge Instructions Follow Up With: Gavin Mcdonald DO [Primary Care Provider] - 1 week - Diet and Activity Activity: as per physical therapy Diet: diabetic diet - VTE Documentation of Mechanical Device: Graduated compression elastic hosiery
--- NOTE | 2018-01-01 11:09 | Physician Discharge Referral ---
Home Health/Hosp Referral Info Transfer to: Home Health Attending Provider: Lakhwinder Provider in Charge Post Discharge: PCP (Gavin Mcdonald DO) - Diagnosis (1) Status post reverse total shoulder replacement Priority: Primary Status: Acute (2) Left wrist fracture Priority: Secondary Status: Acute (3) Anemia Priority: Secondary Status: Acute (4) Hypertension Priority: Secondary Status: Chronic (5) DM type 2 (diabetes mellitus, type 2) Priority: Secondary Status: Chronic (6) Constipation Priority: Secondary Status: Resolved (7) Hypomagnesemia Priority: Secondary Status: Acute - Respiratory Orders Smoking Cessation: Smoking cessation has been advised. For more information, call the [place] Tobacco Quit Line at 7-746-TRYI-NOW. - Diet/Nutrition Diet/Nutrition Orders: No Concentrated Sweets - Activity Activity Orders: Walker - Services Needed Following services are medically necessary services: Nursing, Home Health Aide, Physical Therapy, Occupational Therapy - Transfer Medications Prescriptions: amLODIPine [Norvasc] 5 mg PO DAILY #30 tablet Ascorbic Acid [Vitamin C] 500 mg PO DAILY@0630 #30 tablet Bumetanide [Bumex] 0.5 mg PO Q48H #10 tablet Ferrous Sulfate 325 mg PO DAILY@0630 #30 tablet Glimepiride [Amaryl] 1 mg PO 0800 #15 tablet Magnesium Oxide [Mag-Ox] 400 mg PO BID #14 tablet Tizanidine HCl [Zanaflex] 2 mg PO TID PRN #30 capsule PRN Reason: as needed Home Medications: Amitriptyline [Elavil] 20 mg PO HS 10/21/17 [History] Ergocalciferol (VITAMIN D2) [Vitamin D2] 2,000 unit PO DAILY 10/21/17 [History] Metformin HCl [Glucophage] 1,000 mg PO BID 10/21/17 [History] Ranitidine HCl [Zantac] 150 mg PO BID 10/21/17 [History] Sertraline [Zoloft] 100 mg PO DAILY 10/21/17 [History] Tramadol HCl [Ultram] 50 mg PO Q8H 10/21/17 [History] Metoprolol Succinate 200 mg PO DAILY 30 Days tab.er.24h 10/31/17 [Rx] Atorvastatin [Lipitor] 10 mg PO HS 11/01/17 [History] HYDROcodone/Acet 7.5/325 mg [[place] 7.5-325 mg] 1 tab PO Q4H PRN #42 tablet 11/01 [Rx] hydrOXYzine HCl [Hydroxyzine HCl] 25 mg PO TID 11/06/17 [History] Ascorbic Acid [Vitamin C] 500 mg PO DAILY@0630 #30 tablet 01/01/18 [Rx] Bumetanide [Bumex] 0.5 mg PO Q48H #10 tablet 01/01/18 [Rx] Ferrous Sulfate 325 mg PO DAILY@0630 #30 tablet 01/01/18 [Rx] Glimepiride [Amaryl] 1 mg PO 0800 #15 tablet 01/01/18 [Rx] Magnesium Oxide [Mag-Ox] 400 mg PO BID #14 tablet 01/01/18 [Rx] Methyl Salicylate/Menthol [Bengay] 1 appl TP BID PRN tube 01/01/18 [Rx] Tizanidine HCl [Zanaflex] 2 mg PO TID PRN #30 capsule 01/01/18 [Rx] amLODIPine [Norvasc] 5 mg PO DAILY #30 tablet 01/01/18 [Rx] Allergies/Adverse Reactions: 3 Allergy/AdvReac Type Severity Reaction Status Date / Time duloxetine [From Cymbalta] Allergy Agitated Verified 11/06/17 13:37 Paroxetine [From Paxil] Allergy Agitated Verified 11/06/17 13:37 acetaminophen [From Percocet] AdvReac Shakiness Verified 11/06/17 13:37 Oxycodone [From Percocet] AdvReac Shakiness Verified 11/06/17 13:37 Certification: Further, I certify that my clinical findings support that this patient is homebound (i.e. absences from home require considerable and taxing effort and are for medical reasons or congregational services or infrequently or short duration when for other reasons) because: Homebound Reason: Leaving home requires considerable and taxing effort due to condition (Humerus and wrist fracture, chronic kidney disease) Attestation: My signature below is to certify that this patient is under my care and that I, or nurse practitioner, or a physician's patient clerical assistant working with me, has a face-to -face encounter with this patient.
== END 2018-01-01 12:55 | disposition home health service (06) | DRG 561 ==
LOC: INPPIK 16:00
PROVIDERS: ADMIT Internal Medicine; ATTEND Internal Medicine

== ENCOUNTER 2022-02-15 09:06 | Observation (INO) ==
[2022-02-15] MEDS: 0.9 % Sodium Chloride 1,000 ML IVC SCH ×2 (09:33→21:09)
[2022-02-15 09:36] LABS: Eosinophils # 0.3 K/mcL (0.0-0.6); Eosinophils % 6.2 %; Hematocrit 32.7 % (35.3-44.9); Hemoglobin 10.6 g/dL (11.5-15.4); Immature Granulocytes % 0.6 % (0-4); Lymphocytes # 0.5 K/mcL (0.6-4.6); Lymphocytes % 9.2 %; Mean Corpuscular HGB Conc 32.4 g/dL (31.6-35.5); Mean Corpuscular Hemoglobin 25.3 pg (28.0-33.3); Mean Platelet Volume 10.6 fL (9.4-12.4); Monocytes # 0.6 K/mcL (0.0-1.3); Monocytes % 11.8 %; Neutrophils # 3.9 K/mcL (1.6-8.9); Platelet Count 130 K/mcL (140-400); Red Blood Count 4.19 M/mcL (3.82-4.97); Red Cell Distribution Width 13.6 % (11.5-14.5); Segmented Neutrophils % 72.2 %; White Blood Count 5.4 K/mcL (4.3-11.1)
[2022-02-15 09:56] LABS: Troponin I < 0.03 ng/mL (< 0.04)
[2022-02-15 10:08] LABS: Bilirubin,Urine Negative (Negative); Blood,Urine Trace-intact (Negative); Clarity,Urine Clear (Clear); Color,Urine Yellow (Yellow); Glucose,Urine (UA) Normal (Normal); Ketones,Urine Negative (Negative); Leukocyte Esterase,Urine Negative (Negative); Nitrite,Urine Negative (Negative); Protein,Urine Negative (Neg-Trace); Specific Gravity,Urine 1.025 (1.010-1.025); Urobilinogen,Urine Normal (Normal)
[2022-02-15 10:12] LABS: Alanine Aminotransferase 2 Units/L (7-52); Albumin 3.4 g/dL (3.5-5.7); Albumin/Globulin Ratio 1.2 (1.1-2.2); Alkaline Phosphatase 97 Units/L (34-104); Aspartate Amino Transferase 10 Units/L (13-39); BUN/Creatinine Ratio 17 (6-26); Bilirubin,Total 0.5 mg/dL (0.3-1.0); Blood Urea Nitrogen 37 mg/dL (8-23); Calcium 8.6 mg/dL (8.6-10.3); Carbon Dioxide 22 mEq/L (23-29); Chloride 101 mEq/L (98-107); Creatine Kinase 48 Units/L (30-223); Globulin 2.9 g/dL (2.4-3.5); Glucose 196 mg/dL (70-105); Magnesium 1.5 mg/dL (1.6-2.6); Osmolality,Calculated 286 (280-300); Potassium 4.2 mEq/L (3.5-5.1); Sodium 131 mEq/L (136-145); Total Protein 6.3 g/dL (6.4-8.9); eGFR For African Americans 28 (> 60); eGFR For Non-African Americans 23 (> 60)
[2022-02-15 10:16] LABS: Mucus,Urine Few per lpf (None-Few); RBC,Urine 0-3 per hpf (0-3); Squamous Epithelial Cell,Urine Few per hpf (None-Few); WBC,Urine 0-3 per hpf (0-3)
[2022-02-15] MEDS ORDERED: Naloxone 0.4 MG/ML INJ IVP PRN (13:52)
[2022-02-15] MEDS ORDERED: Ondansetron ODT 4 MG TAB.RAPDIS SL PRN (13:53)
[2022-02-15] MEDS ORDERED: Methyl Salicylate/Menthol 85 APPL/85 GM TUBE TP PRN (13:53)
[2022-02-15] MEDS ORDERED: Ondansetron ODT 4 MG TAB.RAPDIS PO PRN (13:53)
[2022-02-15] MEDS ORDERED: *HR* Dextrose 50 % in Water (Syg) 50 ML SYRINGE IVP PRN (17:36)
[2022-02-15] MEDS ORDERED: D5% in Water 1,000 ML IVC PRN (17:36)
[2022-02-15] MEDS ORDERED: Dextrose 4 GM Chewable Tablets PO PRN ×2 (17:36)
[2022-02-15] MEDS: Cefdinir 300 MG CAPSULE PO SCH (21:08)
[2022-02-15] MEDS: Magnesium Oxide 400 MG TABLET PO SCH (21:08)
[2022-02-15] MEDS: Insulin LISPRO 300 UNITS/3 ML VIAL SUBQ SCH (21:09)
[2022-02-16] MEDS: tiZANidine 4 MG TABLET PO PRN ×2 (03:15→21:23)
[2022-02-16] MEDS: *HR* HYDROcodone/Acet 7.5/325 mg TABLET PO PRN ×2 (03:15→21:23)
[2022-02-16] MEDS ORDERED: *HR* Enoxaparin 40 MG/0.4 ML SYRINGE SQ SCH (06:00)
[2022-02-16 06:24] LABS: Eosinophils # 0.4 K/mcL (0.0-0.6); Eosinophils % 7.3 %; Hematocrit 29.8 % (35.3-44.9); Hemoglobin 9.6 g/dL (11.5-15.4); Immature Granulocytes % 0.4 % (0-4); Lymphocytes # 0.9 K/mcL (0.6-4.6); Lymphocytes % 16.4 %; Mean Corpuscular HGB Conc 32.2 g/dL (31.6-35.5); Mean Corpuscular Hemoglobin 25.7 pg (28.0-33.3); Mean Corpuscular Volume 79.9 fL (83.0-100.0); Mean Platelet Volume 10.4 fL (9.4-12.4); Monocytes # 0.5 K/mcL (0.0-1.3); Monocytes % 9.2 %; Neutrophils # 3.5 K/mcL (1.6-8.9); Platelet Count 131 K/mcL (140-400); Red Blood Count 3.73 M/mcL (3.82-4.97); Red Cell Distribution Width 13.9 % (11.5-14.5); Segmented Neutrophils % 66.7 %; White Blood Count 5.2 K/mcL (4.3-11.1)
[2022-02-16] MEDS: Ascorbic Acid 500 MG TABLET PO SCH (06:25)
[2022-02-16 06:51] LABS: Magnesium 1.9 mg/dL (1.6-2.6); Potassium 4.5 mEq/L (3.5-5.1)
[2022-02-16] MEDS: Insulin LISPRO 300 UNITS/3 ML VIAL SUBQ SCH ×4 (08:07→21:24)
[2022-02-16] MEDS: Famotidine 20 MG TABLET PO SCH (08:09)
[2022-02-16] MEDS: Cefdinir 300 MG CAPSULE PO SCH (08:09)
[2022-02-16] MEDS: Cholecalciferol (D-3) 1,000 UNIT (25MCG) TABLET PO SCH (08:09)
[2022-02-16] MEDS: amLODIPine 5 MG TABLET PO SCH (08:09)
[2022-02-16] MEDS: Metoprolol XL (24 HR) Succ 50 MG TAB.ER.24H PO SCH (08:09)
[2022-02-16] MEDS: Magnesium Oxide 400 MG TABLET PO SCH ×2 (08:09→21:23)
[2022-02-16] MEDS ORDERED: 0.9 % Sodium Chloride 1,000 ML IVC SCH (11:45)
[2022-02-16] MEDS ORDERED: Moderna Covid-19 Vaccine 100MCG/0.5mL IM ONE ×2 (15:04→17:30)
[2022-02-17] MEDS: *HR* Heparin 5,000 UNIT/ML VIAL SQ SCH ×2 (06:24→16:59)
[2022-02-17] MEDS: Ascorbic Acid 500 MG TABLET PO SCH (06:24)
[2022-02-17 07:23] LABS: Basophils % 0.3 %; Eosinophils # 0.5 K/mcL (0.0-0.6); Eosinophils % 7.5 %; Hematocrit 35.9 % (35.3-44.9); Hemoglobin 11.3 g/dL (11.5-15.4); Immature Granulocytes % 0.4 % (0-4); Lymphocytes # 1.9 K/mcL (0.6-4.6); Lymphocytes % 27.9 %; Mean Corpuscular HGB Conc 31.5 g/dL (31.6-35.5); Mean Corpuscular Hemoglobin 25.2 pg (28.0-33.3); Mean Corpuscular Volume 80.1 fL (83.0-100.0); Mean Platelet Volume 10.6 fL (9.4-12.4); Monocytes # 0.8 K/mcL (0.0-1.3); Neutrophils # 3.7 K/mcL (1.6-8.9); Platelet Count 147 K/mcL (140-400); Red Blood Count 4.48 M/mcL (3.82-4.97); Segmented Neutrophils % 52.9 %; White Blood Count 6.9 K/mcL (4.3-11.1)
[2022-02-17 07:49] LABS: Calcium 8.3 mg/dL (8.6-10.3); Potassium 5.1 mEq/L (3.5-5.1)
[2022-02-17] MEDS: Insulin LISPRO 300 UNITS/3 ML VIAL SUBQ SCH ×4 (07:49→21:10)
[2022-02-17] MEDS: Magnesium Oxide 400 MG TABLET PO SCH ×2 (08:54→21:09)
[2022-02-17] MEDS: amLODIPine 5 MG TABLET PO SCH (08:54)
[2022-02-17] MEDS: Metoprolol XL (24 HR) Succ 50 MG TAB.ER.24H PO SCH (08:54)
[2022-02-17] MEDS: Famotidine 20 MG TABLET PO SCH (08:54)
[2022-02-17] MEDS: Cholecalciferol (D-3) 1,000 UNIT (25MCG) TABLET PO SCH (08:54)
[2022-02-17] MEDS ORDERED: Sennosides/Docusate Sodium TABLET PO PRN (16:45)
[2022-02-17] MEDS: 0.9 % Sodium Chloride 1,000 ML IVC SCH (17:06)
[2022-02-17] MEDS: tiZANidine 4 MG TABLET PO PRN (21:09)
[2022-02-17] MEDS: *HR* HYDROcodone/Acet 7.5/325 mg TABLET PO PRN (21:09)
[2022-02-18] MEDS: *HR* Heparin 5,000 UNIT/ML VIAL SQ SCH ×2 (06:30→16:41)
[2022-02-18] MEDS: 0.9 % Sodium Chloride 1,000 ML IVC SCH (06:30)
[2022-02-18] MEDS: Ascorbic Acid 500 MG TABLET PO SCH (06:30)
[2022-02-18 07:33] LABS: Hematocrit 33.4 % (35.3-44.9); Hemoglobin 10.7 g/dL (11.5-15.4); Mean Corpuscular Hemoglobin 24.9 pg (28.0-33.3); Mean Corpuscular Volume 77.9 fL (83.0-100.0); Mean Platelet Volume 10.3 fL (9.4-12.4); Platelet Count 152 K/mcL (140-400); Red Blood Count 4.29 M/mcL (3.82-4.97); Red Cell Distribution Width 13.8 % (11.5-14.5); White Blood Count 5.7 K/mcL (4.3-11.1)
[2022-02-18 07:55] LABS: Calcium 8.4 mg/dL (8.6-10.3); Potassium 4.8 mEq/L (3.5-5.1)
[2022-02-18] MEDS: Insulin LISPRO 300 UNITS/3 ML VIAL SUBQ SCH ×4 (08:48→21:09)
[2022-02-18] MEDS: Magnesium Oxide 400 MG TABLET PO SCH ×2 (08:49→21:04)
[2022-02-18] MEDS: Metoprolol XL (24 HR) Succ 50 MG TAB.ER.24H PO SCH (08:49)
[2022-02-18] MEDS: Famotidine 20 MG TABLET PO SCH (08:49)
[2022-02-18] MEDS: amLODIPine 5 MG TABLET PO SCH (08:49)
[2022-02-18] MEDS: Cholecalciferol (D-3) 1,000 UNIT (25MCG) TABLET PO SCH (08:50)
[2022-02-18] MEDS ORDERED: Insulin DETEMIR 100 UNIT/ML X5UNITS SUBQ SCH (21:00)
[2022-02-18] MEDS ORDERED: Famotidine 20 MG TABLET PO SCH (21:00)
[2022-02-18] MEDS ORDERED: traZODone 50 MG TABLET PO SCH (21:00)
[2022-02-18] MEDS: Carbidopa/Levodopa ER 50/200 TABLET PO SCH (21:05)
[2022-02-18] MEDS: *HR* HYDROcodone/Acet 7.5/325 mg TABLET PO PRN (21:05)
[2022-02-19] MEDS: Ascorbic Acid 500 MG TABLET PO SCH (06:25)
[2022-02-19] MEDS: *HR* Heparin 5,000 UNIT/ML VIAL SQ SCH (06:25)
[2022-02-19 07:34] LABS: Hemoglobin 10.6 g/dL (11.5-15.4); Mean Corpuscular HGB Conc 32.1 g/dL (31.6-35.5); Mean Corpuscular Hemoglobin 25.2 pg (28.0-33.3); Mean Corpuscular Volume 78.4 fL (83.0-100.0); Mean Platelet Volume 10.7 fL (9.4-12.4); Platelet Count 171 K/mcL (140-400); Red Blood Count 4.21 M/mcL (3.82-4.97); Red Cell Distribution Width 13.6 % (11.5-14.5); White Blood Count 5.5 K/mcL (4.3-11.1)
[2022-02-19 07:56] LABS: Calcium 8.9 mg/dL (8.6-10.3); Potassium 4.6 mEq/L (3.5-5.1)
[2022-02-19] MEDS: Magnesium Oxide 400 MG TABLET PO SCH (08:51)
[2022-02-19] MEDS: amLODIPine 5 MG TABLET PO SCH (08:52)
[2022-02-19] MEDS: Cholecalciferol (D-3) 1,000 UNIT (25MCG) TABLET PO SCH (08:52)
[2022-02-19] MEDS: Famotidine 20 MG TABLET PO SCH (08:52)
[2022-02-19] MEDS: Carbidopa/Levodopa ER 50/200 TABLET PO SCH ×2 (08:53→15:55)
[2022-02-19] MEDS: Insulin LISPRO 300 UNITS/3 ML VIAL SUBQ SCH ×2 (08:57→11:39)
[2022-02-19] MEDS ORDERED: Metoprolol XL (24 HR) Succ 50 MG TAB.ER.24H PO SCH (09:00)
[2022-02-19 11:26] VITALS: BP 161/83; PULSE 76; RESP 18; TEMP 97.4; O2SAT 95
== END 2022-02-19 16:45 ==
LOC: EMEROOPIK 09:06 → INPPIK 09:06
PROVIDERS: ADMIT Internal Medicine; ATTEND Internal Medicine